=== PATIENT | male | born 1930 | race Caucasian/White ===

== ENCOUNTER 2018-08-07 09:53 | Inpatient (IN) | payer OTHER, MEDICARE ==
[~2018-08-07] VITALS: Ht 188 cm; Wt 108.9 kg
--- NOTE | ~2018-08-07 | HC ---
[facility] [place] [address] CONSULTATION Name: KYE NEELY Michael Room #: 217-P [facility] IN ..#: [id number] Admission: 08/07/18 ������������������ Attend Phys: Arnulfo Grijalva MD Discharge: ������������������ Date of : 32 Report #: [id number] THIS REPORT FOR: //name// CC: Arnulfo Grijalva DATE OF SERVICE: 08/08/2018 HISTORY OF PRESENT ILLNESS: The patient is an 88-year-old white male admitted with left lower extremity pain. He was noted to have left lower extremity cellulitis. Venous Doppler study was noted to be negative. He has been treated with IV antibiotics. Cardiology is involved as well with a history of atrial fibrillation. He is currently undergoing a cardiac echo. He has had some short episodes of paroxysmal rapid ventricular response, noted to be asymptomatic. He also has a resting tremor with question of Parkinson disease, but he has not actually have that diagnosis. We are seeing him in rehabilitation medicine consultation. PAST MEDICAL HISTORY: Melanoma of his back, which was previously excised. He did have some problems with necrotizing fasciitis noted at that time. History of cardiomyopathy, paroxysmal atrial fibrillation, chronic urinary retention, for which, he was intermittently cathing himself 3 times per day. He has history of dyslipidemia. MEDICATIONS: Please see the full medication listing as noted. List includes vitamins, herbals, and supplements as per report. ALLERGIES: No known drug allergies. FAMILY HISTORY: Nonapplicable. SOCIAL HISTORY: , lives with his house, no steps. He did not utilize gait aids, although on occasion, he had a cane or a walker he would utilize. 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 FAMILY HISTORY: Noncontributory. REVIEW OF SYSTEMS: Main complaint is the left lower extremity with the swelling and discomfort. REVIEW OF SYSTEMS: No complaints of chest pain, shortness of breath or abdominal discomfort. No other focal extremity pain complaints other than that left lower extremity. He does have a history of intermittent cathing as far as bladder. He denied any swallowing difficulties. PHYSICAL EXAMINATION: GENERAL: He is an 88-year-old white male in no obvious distress. [address] [address] CONSULTATION Name: KYE NEEYL Room #: 217-P [facility] IN [facility].#: [id number] Admission: 08/07/18 ������������������ Attend Phys: Arnulfo Grijalva MD Discharge: ������������������ Date of : 32 Report #: [id number] VITAL SIGNS: Last recorded temperature 98.3, pulse 73, respirations 16, blood pressure 103/68. NEUROLOGIC: The patient is alert. He is pleasant. Facies appeared to be symmetric. Follows basic commands without difficulty. He does have a resting tremor of both upper extremities, almost appears to be pill rolling. I could not detect any obvious cogwheeling, however, of his wrists or elbows. Strength of the upper body is probably a grade 3+ to 4-/5. DTRs are trace to 1. EXTREMITIES: Lower extremities: He has a left lower extremity significant erythema with some increased swelling. No calf swelling per se. He had that leg elevated on a pillow. He can wiggle the toes and can move it proximally. Right lower extremity functional range of motion strength is probably a grade 3+ to 4-/5. Tone appeared to be intact. He is currently undergoing a cardiac echocardiogram. ASSESSMENT: An 88-year-old white male with the following problem list: 1. Left lower extremity cellulitis. 2. Atrial fibrillation with rapid ventricular response. 3. Electrolyte abnormalities. 4. New stage 2 sacral pressure ulcer. 5. Resting tremor, question of Parkinson, although no actual diagnosis in this regard. 6. Idiopathic Cardiomyopathy. 7. Hyperlipidemia. 8. Hypertension. 9. History of nonsustained ventricular tachycardia. 10. Premorbid chronic urinary retention, for which, he intermittently catheterized himself 3 times a day. 11. History of melanoma of the back with prior exercising and history of some necrotizing fasciitis. PLAN: Therapy evaluations are underway. We will be glad to follow regarding his rehab therapy needs as he further medically stabilizes. ��������������������������������������������� ���������������������������������������� By: ��������������������������������������������� 1105 2231 Franklin Odom MD /nt
[2018-08-07 09:53] VITALS: BP 111/71
[~2018-08-07 09:53] MED LIST: ADULT LOW DOSE81 MG PO; AMIODARONE PO; CIPROFLOXACIN500 M1 PO; COUMADIN 5 MG TA5 M1 PO; KEFLEX500 MG PO; LIPITOR20 MG PO; PACERONE 200 M200 MG PO; TAMSULOSIN HCL0.4 M1 PO; TOPROL XL25 MG PO
[2018-08-07] MEDS ORDERED: XARELTO20 MG PO (10:07)
[2018-08-07 10:23] LABS: ABSOLUTE NEUTROPHILS 6.9 thou/uL (1.4-8.2); BASOPHILS 0.3 % (0.0-2.0); HEMATOCRIT 43.4 % (42.0-52.0); HEMOGLOBIN 14.4 gm/dL (14.0-18.0); LYMPHOCYTES 18.4 % (24.0-44.0); MCH 28.4 pg (26.0-34.0); MCHC 33.1 g/dL (28.0-37.0); MCV 85.8 fL (80.0-100.0); MONOCYTES 6.8 % (1.0-8.0); PLATELET COUNT 235 thou/uL (150-400); POLYS 73.5 % (36.0-66.0); RBC 5.06 mil/uL (4.50-6.00); RDW 16.1 % (10.5-14.5); WBC 9.3 thou/uL (4.0-11.0)
[2018-08-07 10:36] LABS: ALBUMIN 2.6 g/dL (3.4-5.0); ANION GAP 6 mmol/L (7-16); BUN 28 mg/dL (7-18); CALCIUM 9.2 mg/dL (8.5-10.1); CHLORIDE 105 mmol/L (98-107); CO2 32 mmol/L (21-32); CREATININE 1.8 mg/dL (0.7-1.3); GLUCOSE 99 mg/dL (74-106); SGOT 31 U/L (15-37); SGPT 30 U/L (30-65); SODIUM 143 mmol/L (136-145); TOTAL BILIRUBIN 0.9 mg/dL (<0.1-1.0); TOTAL PROTEIN 7.5 g/dL (6.4-8.2); TROPONIN-I <0.06 ng/mL (<0.06)
[2018-08-07 10:39] LABS: POTASSIUM 2.8 mmol/L (3.5-5.1)
[2018-08-07 11:52] VITALS: BP 108/71
[2018-08-07] MEDS ORDERED: TORSEMIDE20 MG PO (12:24)
[2018-08-07 12:45] VITALS: BP 92/61
--- NOTE | 2018-08-07 12:46 | NUR ---
ATTEMPTED TO CALL REPORT TO DEN IN CCU; REQUESTS TO CALL ME BACK IN 5 MIN; SECTION 8 PROPERTY MANAGER, CHRIST PAEZ, AWARE
[2018-08-07 13:55] VITALS: BP 106/68
--- NOTE | 2018-08-07 15:37 | NUR ---
PT ARRIVED TO UNIT AT APPROX 1340 WITH BELONGINGS BY ER STAFF ACCPANIED BY FAMILY. PT ALERT AND ORIENTED, C/O PAIN 2/10 IN LLE, VSS, O2 SATS WNL ON ROOM AIR, NO S/SX OF CARDIAC OR RESP DISTRESS. DENIES CHEST PAIN. PT AFIB ON MONITOR, HR ELEVATED LOW 90S-LOWER 100S PT SEEN BY DR. MARCIAL, NO NEW ORDERS. WOUND ON PT COCCYX ASSESSED, PICTURES TAKEN. TELE PUT ON, TELE STRIP PRINTED AND DOCUMENTED. WILL WAIT FOR ORDERS. WILL CONTINUE TO MONITOR AND FOLLOW POC.
--- NOTE | 2018-08-07 19:31 | NUR ---
PT CONTINUES TO BE ALERT AND ORIENTED, PT SEEN BY PHYSICIAN, CONSULTS CALLED, SEEN BY CARDIOLOGY. VSS, DENIES CONCERNS, NO S/SX OF CARDIAC OR RESP DISTRESS NOTED. O2 SATS WNL ON ROOM AIR. PT UP WITH WALKER X1 ASSIST. WILL CONTINUE TO MONITOR AND FOLLOW POC.
[2018-08-07 19:49] VITALS: BP 113/67
--- NOTE | 2018-08-08 02:53 | NUR ---
TOOK OVER PT CARE AROUND 2129. A&OX4, DENIES ANY PAIN OR CONCERNS. MECH/SOFT NECT THICK LIQUIDS TOLERATED WELL. Q2 TURNS. POSADAS INSERT. PLAN FOR LABS THIS AM. WILL CONTINUE TO MONITORING ELECTROLYTES.
[2018-08-08 03:28] LABS: ABSOLUTE NEUTROPHILS 6.2 thou/uL (1.4-8.2); BASOPHILS 0.4 % (0.0-2.0); EOSINOPHILS 1.8 % (0.0-3.0); HEMATOCRIT 39.6 % (42.0-52.0); LYMPHOCYTES 17.8 % (24.0-44.0); MCH 28.4 pg (26.0-34.0); MCHC 32.9 g/dL (28.0-37.0); MCV 86.4 fL (80.0-100.0); MONOCYTES 6.5 % (1.0-8.0); PLATELET COUNT 230 thou/uL (150-400); POLYS 73.5 % (36.0-66.0); RBC 4.59 mil/uL (4.50-6.00); RDW 15.5 % (10.5-14.5); WBC 8.4 thou/uL (4.0-11.0)
[2018-08-08 03:31] LABS: CALCIUM 8.4 mg/dL (8.5-10.1); CREATININE 1.5 mg/dL (0.7-1.3)
[2018-08-08 03:34] LABS: PREALBUMIN 12.2 mg/dL (18.0-35.7)
[2018-08-08 04:20] VITALS: BP 102/54
--- NOTE | 2018-08-08 08:23 | EKG ---
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 : 1930 Requested By: Estela Ramos Order Number: [id number] MD: Ld Ozuna Measurements Intervals [place] Rate: 105 P: [place]: QRS: -37 QRSD: 105 T: 60 QT: 387 QTc: 512 Interpretive Statements Atrial fibrillation Frequent premature ventricular complexes Inferior infarct, old Anterior infarct, old Compared to ECG 03/04/2012 15:55:16 Ventricular ectopy has now present atrial fibrillation has replaced sinus rhythm Electronically Signed On 08-08-2018 8:23:10 CDT by Ld Ozuna [email or web address] ��������������������������������������������� <ELECTRONICALLY SIGNED> ���������������������������������������� By: Ld Ozuna MD, [facility] ��������������������������������������������� 08/08/18 0823 1004 1004 Ld Ozuna MD, [facility] /EPI
--- NOTE | 2018-08-08 08:58 | EKG ---
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 : 1930 Requested By: Estela Ramos Order Number: [id number] MD: Ld Ozuna Measurements Intervals [place] Rate: 143 P: [place]: QRS: -28 QRSD: 115 T: 31 QT: 371 QTc: 572 Interpretive Statements Atrial fibrillation with rapid V-rate Paired ventricular premature complexes Poor R wave progression Inferior infarct, old Poor R wave progression Compared to ECG 03/04/2012 15:55:16 Atrial flutter has replaced atrial fibrillation Electronically Signed On 08-08-2018 8:57:56 CDT by Ld Ozuna [email or web address] ��������������������������������������������� <ELECTRONICALLY SIGNED> ���������������������������������������� By: Ld Ozuna MD, [facility] ��������������������������������������������� 08/08/18 0857 1218 1218 Ld Ozuna MD, [facility] /EPI
[2018-08-08 09:15] VITALS: BP 103/68
--- NOTE | 2018-08-08 12:08 | 2DMMODE ---
[facility] [address] [place] [address] 2 D/M-MODE ECHOCARDIOGRAM Name: KYE NEELY Room #: 217-P [facility] IN [facility]#: [id number] ������������� Admission: 08/07/18 ������������� Attend Phys: Arnulfo Grijalva, Discharge: ��� ������������� ��� Date of : 34 Date of Service: 08/08/18 1208 �� Report #: [id number] �������� ��������������������������������������������[id number] THIS REPORT FOR: //name// APPROVED REPORT Study performed: 08/08/2018 10:33:15 EXAM: Comprehensive 2D, Doppler, and color-flow Echocardiogram Patient Location: Bedside Room #: 217 Status: routine BSA: 2.35 HR: 97 bpm BP: 102/54 mmHg Rhythm: Atrial Fibrillation Other Information Study Quality: Adequate Risk Factors: Cardiac Risk Factors: HTN, Hyperlipidemia Indications CAD Cardiomyopathy 2D Dimensions IVSd: 11.87 (7-11mm) LVOT Diam: 20.00 (18-24mm) LVDd: 50.30 mm PWd: 11.57 (7-11mm) Ascending Ao: 34.33 (22-36mm) LVDs: 40.32 (25-40mm) Aortic Root: 33.23 mm LV Single Plane 4CH: 40.30 % LV Single Plane 2CH: 43.48 % Biplane EF: 42.9 % Volumes Left Atrial Volume (Systole) Single Plane 4CH: 101.21 mL Single Plane 2CH: 90.74 mL LA ESV Index: 49.00 mL/m2 Aortic Valve AoV Peak Abel.: 1.13 m/s AO Peak Gr.: 6.09 mmHg LVOT Max P.09 mmHg [facility] [address] [place] [address] 2 D/M-MODE ECHOCARDIOGRAM Name: KYE NEELY Michael Room #: 217-P [facility] IN [facility]#: [id number] ������������� Admission: 08/07/18 ������������� Attend Phys: Arnulfo Grijalva, Discharge: ��� ������������� ��� Date of : 34 Date of Service: 08/08/18 1208 �� Report #: [id number] �������� ��������������������������������������������[id number] LVOT Max V: 0.88 m/s LETITIA Vmax: 2.39 cm2 Pulmonary Valve PV Peak Abel.: 0.99 m/s PV Peak Gr.: 3.89 mmHg AK End Vmax: 1.27 m/s Tricuspid Valve TR Peak Abel.: 2.46 m/s TR Peak Gr.: 24.16 mmHg Left Ventricle Left ventricle is borderline dilated. segmental abnormalities noted Borderline concentric left ventricular hypertrophy. Left ventricular systolic function is moderately decreased. LVEF is 40%. This study is not technically sufficient to allow evaluation of the LV diastolic function due to atrial fibrillation. Right Ventricle The right ventricle is normal size. The right ventricular systolic function is normal. Atria Left atrium is severely dilated. Right atrium is at the upper limits of normal. Aortic Valve The aortic valve is normal in structure. No aortic regurgitation is present. There is no aortic valvular stenosis. Mitral Valve The mitral valve is normal in structure. Mild mitral regurgitation. No evidence of mitral valve stenosis. Tricuspid Valve The tricuspid valve is normal in structure. Mild tricuspid regurgitation. Unable to assess PA pressure. Pulmonic Valve The pulmonary valve is normal in structure. Mild pulmonic regurgitation. Great Vessels The aortic root is normal in size. IVC is not well visualized. [facility] [address] [place] [address] 2 D/M-MODE ECHOCARDIOGRAM Name: CHINKYE Michael Room #: 217-P [facility] IN ..#: [id number] ������������� Admission: 08/07/18 ������������� Attend Phys: Arnulfo Grijalva, Discharge: ��� ������������� ��� Date of : 34 Date of Service: 08/08/18 1208 �� Report #: [id number] �������� ��������������������������������������������[id number] Pericardium There is no pericardial effusion. <Conclusion> Left ventricle is borderline dilated. Left ventricular systolic function is moderately decreased. LVEF is 40%. segmental abnormalities noted Left atrium is severely dilated. The aortic valve is normal in structure. The mitral valve is normal in structure. Mild mitral regurgitation. The tricuspid valve is normal in structure. Mild tricuspid regurgitation. Unable to assess PA pressure. The pulmonary valve is normal in structure. Mild pulmonic regurgitation. There is no pericardial effusion. ��������������������������������������������� <ELECTRONICALLY SIGNED> ���������������������������������������� By: Stevan Adame MD ��������������������������������������������� 08/08/188 07 Stevan Adame MD /INF
[2018-08-08 12:19] VITALS: BP 100/72
[2018-08-08 12:28] LABS: CALCIUM 8.6 mg/dL (8.5-10.1); CREATININE 1.4 mg/dL (0.7-1.3); POTASSIUM 3.5 mmol/L (3.5-5.1)
--- NOTE | 2018-08-08 13:02 | HC ---
[facility] [place] [address] CONSULTATION Name: KYE NEELY Room #: 217-P [facility] IN .R.#: [id number] Admission: 08/07/18 ������������������ Attend Phys: Arnulfo Grijalva MD Discharge: ������������������ Date of : 32 Report #: [id number] THIS REPORT FOR: //name// CC: Arnulfo Grijalva HISTORY OF PRESENT ILLNESS: This is a very pleasant gentleman who was admitted from the Emergency Room due to left lower extremity edema and redness compatible with cellulitis. The patient states that this has been present for several days and has been progressively worsening. He does not notice when he has palpitations. He does have a history of atrial fibrillation and states it had been controlled, although upon questioning, he did not identify episodes of his heart rate being fast while being monitored here. He denies any fever or chills. Denies any chest pain, pressure, tightness, heaviness. Denies any orthopnea or PND. He states the only complaint is over the last couple of days or so when he started having the redness become quite significant. PAST MEDICAL HISTORY: Significant for: 1. Prior Staph infections in the back. 2. Cardiomyopathy, although the specifics are not available to me. 3. Paroxysmal atrial fibrillation, anticoagulated. 4. Dyslipidemia. 5. Benign prostatic hypertrophy. ALLERGIES: No known drug allergies. MEDICATIONS: Toprol-XL 25 mg daily, Lipitor 10 mg daily, Xarelto 20 mg daily and torsemide 20 mg daily. SOCIAL HISTORY: The patient is a former smoker, does not consume alcohol or follow a particular exercise regimen or dietary restriction. Electrocardiogram demonstrates atrial fibrillation with a slightly increased ventricular response of 105 in the ER followed by AFib with a rapid ventricular response at 143. Nonspecific ST-T wave changes, which lasted under 5 minutes. LABORATORY DATA: Demonstrates a potassium of 2.8, which has been supplemented and H and H of 14.4 and 43.4 with a platelet count of 235,000. Radiologic demonstrates no deep venous thrombosis noted by ultrasound. REVIEW OF SYSTEMS: Except for symptoms previously mentioned and those commensurate with comorbid state, the 10-point review of systems is negative. PHYSICAL EXAMINATION: GENERAL: Shows well-developed white male, resting comfortably in no acute distress. VITAL SIGNS: Noted and reviewed in the chart. [address] [address] CONSULTATION Name: KYE NEELY Room #: 217-P [facility] IN M.R.#: [id number] Admission: 08/07/18 ������������������ Attend Phys: Arnulfo Grijalva MD Discharge: ������������������ Date of : 32 Report #: [id number] HEENT: Normocephalic, atraumatic. Pupils are equal, round, reactive to light and accommodation. Extraocular muscles are intact. Sclerae and conjunctivae are anicteric. NECK: JVD is normal. Carotid upstrokes are bilaterally symmetrical. No bruits are heard. No thyromegaly. No lymphadenopathy. LUNGS: Clear to auscultation. No wheezes, rhonchi or crackles. No CVA tenderness. CARDIAC: Demonstrates an irregularly irregular rhythm. Soft systolic murmur is noted. ABDOMEN: Soft, nontender, nondistended. Normal bowel sounds. EXTREMITIES: Demonstrates bilateral lower extremity edema, mild on the right, [id number] on the left with evidence of a cellulitis, but no lymphangitis. NEUROLOGIC: Cranial nerves 2-12 are grossly normal and symmetrical. PSYCHIATRIC: Alert, oriented with normal affect. SKIN: Warm and dry. IMPRESSION: 1. History of atrial fibrillation with short episodes of paroxysmal rapid ventricular response, which are asymptomatic. These are self-limiting and short-acting and may be secondary to the issues from the cellulitis. In view of this, I am going to observe for the moment and not initiate any medications because of the fact that the patient does have short episodes only. If it becomes more sustained, then at that point in time, we would need to proceed with more definitive control. We will continue the anticoagulation unless contraindications develop. 2. Lower extremity cellulitis, on antibiotics as per primary care. 3. Cardiomyopathy is compensated currently, but need to obtain all information. The Toprol-XL is underdosed for guideline directed medical therapy, but if his ejection fraction is normalized, then no need to make any changes. 4. Dyslipidemia. I did discuss with him [employer] [employer] step 1 diet recommendations for which he does voice understanding. ��������������������������������������������� <ELECTRONICALLY SIGNED> ���������������������������������������� By: Stevna Adame MD ��������������������������������������������� 08/08/18 1302 0008 0040 Stevan Adame MD /nt
[2018-08-08 16:11] VITALS: BP 100/62
--- NOTE | 2018-08-08 17:32 | NUR ---
WOUND CONSULT: PT. WAS SEEN TODAY BY DR. BREEN AND MYSELF. PT. HAS STAGE 2 PRESSURE ULCER TO HIS SACRUM AND CELLULTITIS TO HIS LEFT LOWER EXTREMITY. RECOMMENDATIONS: WOUND CARE TO SACRUM: GENTLY CLEANSE AREA WITH WOUND CLEANSER OR NORMAL SALINE, APPLY MOISTURE BARRIER CREAM, LEAVE OPEN TO AIR, COMPLETE CARES DAILY AND PRN. TURN Q2 HOURS KEEP PT. OFF WOUNDS MUCH POSSIBLE KEEP ON SLOAN MATRESS. PT. AND STAFF NURSE WERE INSTRUCTED ON PLAN OF CARE.
--- NOTE | 2018-08-08 18:08 | NUR ---
ASSUMED CARE OF PT AT 0645. WORKED WITH THERAPY. WOUND CARE CONSULT. FAILED BEDSIDE SWALLOW FOR THIN LIQUIDS. VIDEO SWALLOW ORDERED. FAMILY AT BEDSIDE, REQUESTED TO SEE WOUND PHOTO. PT WANTS TO KNOW HOW LONG TIL CELLULITIS IS HEALED. LITTLE PROGRESS TOWARD PLAN OF CARE.
[2018-08-08 19:42] VITALS: BP 118/70
[2018-08-08 23:09] LABS: GLYCOHEMOGLOBIN (HGB A1C) 5.4 % (4.8-5.6)
[2018-08-09 04:24] LABS: CALCIUM 8.5 mg/dL (8.5-10.1); CREATININE 1.4 mg/dL (0.7-1.3); MAGNESIUM 2.1 mg/dL (1.8-2.4); POTASSIUM 4.2 mmol/L (3.5-5.1)
--- NOTE | 2018-08-09 04:29 | NUR ---
ASSESSMENT DOCUMENTED.PT BEEN RESTING IN NO ACUTE DISTRESS.A/OX4. SPITTING UP OF CLEAR PHELGM.TURNED AND REPOSITIONED IN BED.BARRIER CREAM TO BUTTOCKS.POSADAS DD,BLOOD TINGED URINE.LR INFUSING,ABTS TX,TOLERATED.PT DENIES PAIN.LEFT LOWER LEG TENDER UPON TOUCH,ELEVATED W/PILLOW.REMAINS AFEBRILE.VSS.AFIB ON MONITOR.PT DENIES ANY NEEDS.PT PROGRESSING SLOWLY TOWARDS GOALS.
[2018-08-09 04:49] VITALS: BP 124/84
[2018-08-09 05:17] LABS: HEMATOCRIT 39.1 % (42.0-52.0); HEMOGLOBIN 12.8 gm/dL (14.0-18.0); MCH 28.3 pg (26.0-34.0); MCHC 32.8 g/dL (28.0-37.0); MCV 86.3 fL (80.0-100.0); RBC 4.53 mil/uL (4.50-6.00); RDW 15.8 % (10.5-14.5); WBC 8.7 thou/uL (4.0-11.0)
[2018-08-09 07:25] VITALS: BP 109/71
[2018-08-09 11:20] VITALS: BP 121/77
--- NOTE | 2018-08-09 12:13 | NUR ---
WOUND FOLLOW UP: PT. WAS SEEN TODAY BY DR. BREEN AND MYSELF. PT. WOUNDS ARE CLINICALLY BETTER TODAY THAN YESTERDAY. PT. REPORTS THAT HIS BOTTOM FEELS BETTER AND HE LIKES THE AIR PUMP. RECOMMENDATIONS: CONTINUE WITH CURRENT PLAN OF CARE. PT. AND STAFF NURSE WERE INSTRUCTED ON PLAN OF CARE.
--- NOTE | 2018-08-09 12:50 | NUR ---
met with patient who reports he resides at home with in independent home with all needs on one level. Patient has a cane at home but does want a walker at home. Discussed rehab and post acute care. Patient adament to return home. Discussed HH care and patient does not want HH. Reviewed HH role and patient cont to state he DOES NOT want hh at home only walker. [facility] to arrange walker for home.
--- NOTE | 2018-08-09 18:36 | NUR ---
ASSUMED CARE OF PT AT SHIFT CHANGE. ASSESSMENTS CHARTED. MEDS GIVEN PER JUL. PT ALERT AND ORIENTED, VSS, NO C/O PAIN, DENIES CHEST PAIN. NO S/SX OF CARDIAC OR RESP DISTRESS NOTED. O2 SATS WNL ON ROOM AIR. URINE IN POSADAS CATH BLOOD TINGED THIS AM, PHYSICIAN NOTIFIED, URINE NO LONGER APPEARS BLOOD TINGED AT THIS TIME. FAMILY VISITED WITH PT, SOCIAL WORK SPOKE WITH PT AND FAMILY, PLAN FOR PT IS FOR 5N IN AM. PT AND FAMILY AWARE AND UPDATED. WILL CONTINUE TO MONITOR AND FOLLOW POC.
[2018-08-09 20:01] VITALS: BP 101/71
--- NOTE | 2018-08-10 03:48 | NUR ---
ASSUMED PT CARE AT 1900. PT A/OX4, VITAL SIGNS STABLE, ASSESSMENT CHARTED. NO COMPLAINTS OF CHEST PAIN/PAIN. Q2HR TURNS. PT RESTED WELL THROUGH THE NIGHT. PROGRESSING TOWARD PLAN OF CARE. CONTINUE TO MONITOR.
[2018-08-10 03:50] VITALS: BP 97/64
[2018-08-10 04:17] LABS: CALCIUM 8.4 mg/dL (8.5-10.1); CREATININE 1.5 mg/dL (0.7-1.3); POTASSIUM 4.3 mmol/L (3.5-5.1)
[2018-08-10 08:36] VITALS: BP 116/66
[2018-08-10] MEDS ORDERED: CARBIDOPA-LEVO1 EA11 PO (09:12)
[2018-08-10] MEDS ORDERED: AMMONIUM LACTA226 GM TOP (09:12)
[2018-08-10] MEDS ORDERED: ZOSYN 3.373.375 GM/1 IV (09:12)
--- NOTE | 2018-08-10 09:20 | HC ---
[facility] [place] [address] CONSULTATION Name: KYE NEELY Room #: 217-P [facility] ..#: [id number] Admission: 08/07/18 ������������������ Attend Phys: Arnulfo Grijalva MD Discharge: ������������������ Date of : 32 Report #: [id number] THIS REPORT FOR: //name// CC: Arnulfo Grijalva DATE OF SERVICE: 08/08/2018 CHIEF COMPLAINT: Sacral pressure ulceration and cellulitis of left lower extremity. HISTORY OF PRESENT ILLNESS: This is an 88-year-old male patient admitted to the hospital with left lower extremity pain. He presented to the Emergency Department noting increasing pain, redness and swelling to his left leg for the last 3 days. He also complains of some gluteal discomfort and I have been asked to see him with regard to wound care. PAST MEDICAL HISTORY: Previous melanoma on his back, which was surgically excised. He apparently developed postoperative infection and necrotizing fasciitis, has a history of cardiomyopathy, paroxysmal atrial fibrillation. He has hyperlipidemia, benign prostatic hypertrophy. He does self-catheterization daily. ALLERGIES: None. MEDICATIONS: Include metoprolol, rivaroxaban, torsemide, atorvastatin. FAMILY HISTORY: Noncontributory. SOCIAL HISTORY: The patient is and lives at home with his . He has 3 sons. He is a nonsmoker and does not abuse alcohol. 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 REVIEW OF SYSTEMS: CONSTITUTIONAL: The patient denies fever, chills, or weight loss. NEUROLOGICAL: The patient denies focal weakness, numbness or swelling. EYES: The patient denies visual changes, redness or drainage. ENT: The patient denies earache, nasal drainage or sore throat. CARDIOVASCULAR: The patient denies chest pain, palpitations, or diaphoresis. PULMONARY: The patient denies cough or shortness of breath. GASTROINTESTINAL: The patient denies nausea, vomiting, or abdominal pain. ORTHOPEDIC: The patient does complain of pain in his gluteal region as well as his left leg. Other systems in a 14-point review of systems are negative. PHYSICAL EXAMINATION: VITAL SIGNS: At this time include temperature 98.0, pulse 82, respiratory rate [facility] [address] [place] [address] CONSULTATION Name: KYE NEELY Michael Room #: 217-P [facility]#: [id number] Admission: 08/07/18 ������������������ Attend Phys: Arnulfo Grijalva MD Discharge: ������������������ Date of : 32 Report #: [id number] 18, blood pressure 118/70. GENERAL: This is a chronically ill-appearing male patient, who appears to be in mental stress. HEENT: Head normocephalic. Nose and throat are clear. NECK: Supple. LUNGS: Clear. ABDOMEN: Soft. SKIN: Examination of the sacral region demonstrates what appears to be stage 2 gluteal ulceration to the buttocks bilaterally. No evidence of cellulitis or infection. EXTREMITIES: Lower extremities demonstrate 3+ edema to the left leg, 2+ edema to the right leg. There is moderate erythema and warmth to the dorsal aspect of the left foot and left lower leg consistent with cellulitis. No open ulcerations are noted at this time. NEUROLOGIC: The patient is alert and oriented and appropriate. LABORATORY DATA: Includes sodium 145, potassium 3.5, CO2 32, BUN 22, creatinine 1.4, glucose 97, calcium is 8.6, albumin is 2.6. White blood cell count 8.7 with hemoglobin 12.8. CLINICAL IMPRESSION: 1. Cellulitis, left lower extremity. 2. Venous stasis dermatitis, bilateral lower extremities. 3. Stage 2 pressure ulcer to the buttocks bilaterally. 4. History of atrial fibrillation, on chronic anticoagulation. 5. Moderate protein-calorie malnutrition. RECOMMENDATIONS: At this point in time, we will recommend a zinc-based moist barrier cream to the sacral gluteal region to be applied daily and as needed. We recommend a low air loss mattress with q. 2 hour turning and repositioning. We will recommend AmLactin lotion to the legs bilaterally due to the cellulitis. We will recommend elevation for edema control rather than any compression at this time or he may benefit from compression in the future. The patient is agreeable to current plan of care. I do appreciate being asked to see him in consultation. ��������������������������������������������� <ELECTRONICALLY SIGNED> ���������������������������������������� By: Braydon Rivera MD ��������������������������������������������� 08/10/18 0920 [id number] Braydon Rivera MD /nt
[2018-08-10 09:53] VITALS: BP 116/66
--- NOTE | 2018-08-10 11:18 | NUR ---
ASSUMED CARE OF PT AT SHIFT CHANGE. ASSESSMENT CHARTED. MEDS GIVEN PER JUL. PT ALERT AND ORIENTED, VSS, NO C/O PAIN, DENIES CHEST PAIN. O2 SATS WNL ON ROOM AIR, NO S/SX OF CARDIAC OR RESP DISTRESS NOTED. FAMILY AT BEDSIDE. DC ORDERS FOR 5N ACKNOWLEDGED AND IMPLEMENTED. REPORT GIVEN TO TEJA ON 5N AT ARPPROX 1100. PT LEFT UNIT WITH ALL BELONGINGS BY TRANSPORT ACCOMANIED BY FAMILY.
--- NOTE | 2018-08-10 12:44 | NUR ---
patient accepted and dc to 5N today.
--- NOTE | 2018-08-10 20:37 | H ---
[facility] [place] [address] HISTORY AND PHYSICAL Name: KYE NEELY Room #: 217-P [facility] IN .R.#: [id number] Admission: 08/07/18 ������������������ Attend Phys: Arnulfo Grijalav MD Discharge: 08/10/18 ������������������ Date of : 32 Report #: [id number] THIS REPORT FOR: //name// CC: FERNANDEZ WALTERS MD DATE OF SERVICE: 08/07/2018 CHIEF COMPLAINT: Left lower extremity pain. 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 He has apparently been having generalized discomfort for at least the last 3 days and particularly in his left lower extremity. It became bad enough that he was no longer able to ambulate even using his walker. He was brought to the Emergency Room and had a workup that I discussed earlier with the nurse practitioner, Estela Ramos and I agree that the patient needed to be admitted for further evaluation and treatment. PAST MEDICAL HISTORY: Is very extensive and includes a history of melanoma on his back, which was surgically excised. This was later complicated by development of an infection and necrotizing fasciitis. According to reports from the Emergency Room, the family felt that this may have been MRSA, although I do not have clear documentation of that. The patient also has a history of cardiomyopathy and has had paroxysmal atrial fibrillation for at least 20 years. He was shocked several times in the remote past, but not recently. He is anticoagulated. He does report having had pulse from time to time, but not frequently. He has hyperlipidemia, has a history of benign prostatic hypertrophy and a transurethral prostate resection in the past; however, he must have a significant amount of chronic urinary retention as he is still performing self-catheterization 3 times per day every day at home. ALLERGIES: He has no known drug allergies. MEDICATIONS ON ADMISSION: Include metoprolol succinate 25 mg by mouth daily, atorvastatin 10 mg p.o. daily, rivaroxaban 20 mg by mouth daily and torsemide 20 mg by mouth daily p.r.n. leg edema. FAMILY HISTORY: Not applicable. SOCIAL HISTORY: The patient is and lives at home with his and has 3 grown sons, one of them is present with him and with his . The patient is [address] [address] HISTORY AND PHYSICAL Name: KYE NEELY Michael Room #: 217-P [facility] IN [facility].#: [id number] Admission: 08/07/18 ������������������ Attend Phys: Arnulfo Grijalva MD Discharge: 08/10/18 ������������������ Date of : 32 Report #: [id number] a nonsmoker and does not abuse alcohol. 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 REVIEW OF SYSTEMS: No headaches or chest pain or shortness of breath more than his normal. No abdominal pain. The patient does have a sore on his backside that has only appeared in the last few days according to my conversation with his son, Fernandez. The patient is having pain in the affected lower extremity, but otherwise tells me he is "fine." PHYSICAL EXAMINATION: VITAL SIGNS: In the Emergency Room showed respirations of 22 per minute on room air with a pulse of 107 apically, temperature of 36.7 degrees centigrade, blood pressure of 111/71 and pulse oximetry of 95% on room air. His self-reported weight at the time of admission was 240 pounds. GENERAL: The patient is a very kindly elderly male who does not appear to be in distress at the time of exam. HEENT: The extraocular muscles are intact. The oropharynx is slightly dry and pink, but without lesions or exudates. NECK: Without adenopathy or thyromegaly or mass or significant bruit, tenting is noted. LUNGS: Fairly clear bilaterally. CARDIOVASCULAR: Reveals a distant and irregularly irregular rhythm in the 90s as far as heart rate and this rate is approximately equal to the rate detected with a radial pulse. ABDOMEN: Soft. Bowel sounds are present. It is benign. EXTREMITIES: Bilateral lower extremities were examined and shows 4+ pitting edema of the left lower extremity extending from the thigh down. There is significant diffuse bright redness with markedly increased heat below the knee and involving the foot, but the redness actually extends along both sides of his thigh going up towards the groin and towards the hip. The entire left lower extremity is significantly tender to light touch. The right lower extremity shows only trace edema if any at all. Peripheral pulses are fairly easily palpated in both lower extremities, more easily, however, on the right side. NEUROLOGIC: The patient's mental status, is alert, fully oriented, has no hallucinations or delusions and has a slightly blunted affect, but a good sense of humor nonetheless. His cranial nerves appear to be intact. His cranial cerebellar exam was not assessed due to the problems with his left lower extremity. The strength in both upper extremities is very good and reasonably good in the right lower extremity. The left lower extremity caused him too much pain to be moving around much. When asked to raise himself for chest auscultation posteriorly, the patient was able to do it under his own power. The patient has a very notable tremor in both upper extremities. In fact, there almost appears to be a pill-rolling tremor in his hands. He does not have cogwheel rigidity, however, in his upper extremities. His facies suggests parkinsonism. 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 The superior gluteal cleft sacral area shows a large stage 2 decubitus ulcer without evidence of infection. ASSESSMENT AND PLAN: 1. Left lower extremity cellulitis -- the patient has diffusely xerotic skin of both lower extremities and I explained to him that it would be very important in the future to use creams or ointments at least daily, if not twice daily to help maintain the integrity of his skin and prevent the breakdown that might cause breaching of his skin defenses by infection. He told me that his is always after him to use the Oil of Olay product as he seems to be undergoing a change of mind about using it with this hospitalization. I will start him on intravenous vancomycin and Zosyn. The possible past history of methicillin-resistant Staphylococcus aureus is worrisome. I will do MRSA nasal swab today and blood cultures have been obtained through the Emergency Room. The pharmacist has already evaluated the patient for appropriate vancomycin dosing and has a calculated creatinine clearance of about 38 mL per minute. 2. Paroxysmal atrial fibrillation, chronic. I have requested a cardiology consult, it is not urgent. Aggressive rate lowering with intravenous Cardizem is relatively contraindicated with the patient's diminished blood pressure; however, if the rate accelerates and remains high for protracted period, ischemia due to hypotension would be worrisome and I would start him on a drip at that point. We will continue his metoprolol 25 mg daily and consider even to increase dose if able. I suspect some of his hypotension while affected by his fluid status and infection may be also related to his decreased cardiac output when the apical rate rises above 180 or so beats a minute. 3. Left lower extremity edema and gait disturbance -- this is likely made worse by the problem listed above, but I will ask physical therapy to work with him. He has already had venous Doppler of his lower extremity to prove that there is no evidence of deep venous thrombosis and it was negative. Given the patient's multiple medical problems and the fact that he still lives at home with his , I have asked for physical and occupational therapy to get involved with his care as well as requesting the data sme see him for evaluation for inpatient rehabilitation stay. Other problems will be outlined below. 4. Sacral decubitus ulcer -- per my conversation with the patient's son, this is a new development. I have asked that the wound specialists be on-board helping the patient with managing this and asked that the nurses turn the patient q. 2 hours to help keep the pressure off of that spot so that it will heal. Most likely, if the patient is able to regain his ambulation status simply staying off of that area of his anatomy will help greatly with the healing. 5. Marked tremor with general debility and diminished affect -- the patient does not strike me as being depressed and is highly intelligent. I am concerned that his tremor may have a Parkinson's disease or parkinsonism associated with it, although the patient assures me that this is not the case. He does not currently take any medication for his tremor and I will defer on further workup [facility] [address] [place] [address] HISTORY AND PHYSICAL Name: KYE NEELY Room #: 217-P [facility]#: [id number] Admission: 08/07/18 ������������������ Attend Phys: Arnulfo Grijalva MD Discharge: 08/10/18 ������������������ Date of : 32 Report #: [id number] and management to Dr. Grijalva who has known him a very long time. 6. Dysphagia -- I did find mention of a swallow study in old records, but could not find the actual results. The patient reports that he did have problems with swallowing several years ago and by his own choice, did not participate in the followup visits with speech therapy. I mention this because the patient's son, toward the end of our visit, mentioned that there had been several times when he has seen the patient suddenly begin coughing paroxysmally and without warning and producing a large amount of whitish mucus. Upon further questioning of the patient, he admitted to this problem and also admitted that it often was the result of ingestion of foods or liquids. We will adjust diet for now and ask speech therapy to further evaluate this problem, but I do not believe it is necessarily related to his cellulitis. 7. Hyperlipidemia. He will continue current medication. 8. Chronic urinary retention with a history of benign prostatic hypertrophy and is status post transurethral prostate resection. Since the patient is self-catheterizing at home and since he is not able to ambulate right now, I ordered a Mena catheter to be placed and to be removed at the discretion of the attending physician and the patient. 9. History of melanoma on his back without recurrence. 10. Creatinine of 1.8 with hypokalemia of 2.8 -- I have started the patient on potassium supplements 20 mEq 3 times daily. I suspect that the elevated creatinine has probably been worsened by decreased cardiac output acutely and some dehydration due to the infection and fever. I have ordered a stat magnesium level to be assessed and we will repeat chemistry in the morning. I have requested consultations with Dr. Mitchell from cardiology or one of his partners, Dr. Odom from rehab Medicine, Dr. Walters from wound management as well as physical, occupational and speech therapies. ��������������������������������������������� <ELECTRONICALLY SIGNED> ���������������������������������������� By: Raza Muller MD ��������������������������������������������� 08/10/182036 10 37 Raza Muller MD /nt
== END 2018-08-10 11:21 | DRG 602 ==
LOC: ER 09:53 → 2N 11:44 → EROBS 11:44 → 2N 13:23 → ENTRNSPT 08-10 11:04 → EDTRNSPTSTS 08-10 11:07 → 2N 08-10 11:21
PROVIDERS: Internal Medicine; Nurse Practitioner Adult Health; Nurse Practitioner Family; ADMIT Internal Medicine
DX: L03.116 Cellulitis of left lower limb (principal); E43 Unspecified severe protein-calorie malnutrition; I42.8 Other cardiomyopathies; I47.2 Ventricular tachycardia; E78.00 Pure hypercholesterolemia, unspecified; N40.0 Benign prostatic hyperplasia without lower urinary tract symptoms; I48.0 Paroxysmal atrial fibrillation; E87.6 Hypokalemia; E78.5 Hyperlipidemia, unspecified; L89.152 Pressure ulcer of sacral region, stage 2; I87.2 Venous insufficiency (chronic) (peripheral); L89.322 Pressure ulcer of left buttock, stage 2; L89.312 Pressure ulcer of right buttock, stage 2; R13.10 Dysphagia, unspecified; R33.9 Retention of urine, unspecified; E83.42 Hypomagnesemia; I65.29 Occlusion and stenosis of unspecified carotid artery; I12.9 Hypertensive chronic kidney disease with stage 1 through stage 4 chronic kidney disease, or unspecified chronic kidney disease; R31.9 Hematuria, unspecified; I25.10 Atherosclerotic heart disease of native coronary artery without angina pectoris; N18.3 Chronic kidney disease, stage 3 (moderate); G20 Parkinson's disease; Z87.891 Personal history of nicotine dependence; Z79.01 Long term (current) use of anticoagulants; Z68.30 Body mass index [BMI] 30.0-30.9, adult; Z82.49 Family history of ischemic heart disease and other diseases of the circulatory system; Z79.899 Other long term (current) drug therapy
CPT/HCPCS: 10081; 10194

== ENCOUNTER 2018-08-10 08:48 | Inpatient (IN) | payer OTHER, MEDICARE ==
[~2018-08-10] VITALS: Ht 188 cm; Wt 113.4 kg
--- NOTE | ~2018-08-10 | H ---
[facility] [place] [address] HISTORY AND PHYSICAL Name: KYE NEELY Room #: 509-P ADM IN M.R.#: [id number] Admission: 08/10/18 ������������������ Attend Phys: Franklin Odom MD Discharge: ������������������ Date of : 32 Report #: [id number] THIS REPORT FOR: //name// CC: Franklin Grijalva DATE OF SERVICE: 08/10/2018 HISTORY AND PHYSICAL/POSTADMISSION PHYSICIAN EVALUATION HISTORY OF PRESENT ILLNESS: The patient is an 88-year-old white male originally admitted to [facility] on 08/07/2018 with left lower extremity cellulitis and pain. Venous Doppler study was noted to be negative. He was treated with IV antibiotics. Cardiology was involved as well with a history of atrial fibrillation. He did have a short episode of paroxysmal ventricular rapid response noted to be asymptomatic. He also had a resting tremor. There was a question regarding Parkinson's disease. He was seen by Neurology, thought to have probable parkinsonism and was started on Sinemet. He has been noted to have a significant decline in his functional abilities and has been admitted for acute in-hospital inpatient rehabilitation. PAST MEDICAL HISTORY: Melanoma of his back, which was previously excised. He did have some problems with necrotizing fasciitis. History of cardiomyopathy, paroxysmal atrial fibrillation, chronic urinary retention and was noted to be cathing himself 3 times a day premorbidly. He currently has the indwelling Mena catheter. He has a history of dyslipidemia. MEDICATIONS: Please see the full medication listing. This includes vitamins, herbals, and supplements as per report. ALLERGIES: No known drug allergies. SOCIAL HISTORY: , lives with his , ant, no steps. He did not utilize gait aids, although on occasion, he had a cane or a walker that he would utilize. He is noted to have 2 grown sons involved. FAMILY HISTORY: Noncontributory. REVIEW OF SYSTEMS: He has the left lower extremity, which is his main complaint of pain. Denies any current chest pain, shortness of breath or abdominal discomfort. He does have a tremor that he has had. No headache. No fever or chills. No other focal weakness. Complains of overall generalized weakness and decreased stability. He did have the prior history of urinary retention as noted above. PHYSICAL EXAMINATION: [address] [address] HISTORY AND PHYSICAL Name: KYE NEELY Michael Room #: 509-[facility].#: [id number] Admission: 08/10/18 ������������������ Attend Phys: Franklin Odom MD Discharge: ������������������ Date of : 32 Report #: [id number] GENERAL: An 88-year-old white male in no obvious distress. VITAL SIGNS: Last recorded temperature 97.5, pulse 78, respirations 20, blood pressure 111/79. NEUROLOGIC: He is alert, follows basic 1 step commands. Facies are symmetric. HEENT: Appeared to be benign. CHEST: Sounded clear to auscultation. CARDIOVASCULAR: Regular rate and rhythm. ABDOMEN: Bowel sounds positive, nontender. GENITOURINARY AND RECTAL: He does have the indwelling Mena catheter. He has a resting tremor, which appears pill rolling. There is a hint of some clonus, wrists and elbows. EXTREMITIES: Functional range of motion of the upper extremities. Strength is grade 3+ to 4-/5. DTRs are trace to 1. Lower extremities: He does have decreased erythema from when I saw that left lower extremity before with some decreased swelling. No calf swelling per se. He can wiggle his toes and move the left lower extremity, probably at least a grade 3+. Right lower extremity is probably a grade 3+ to 4-. Tone appeared to be intact. Functionally, he has been min assist with basic functional mobility skills and ADLs. ASSESSMENT: An 88-year-old white male with the following problem list: 1. Parkinsonism. 2. Dysphagia, nectar thickened liquids. 3. Left lower extremity cellulitis. 4. Atrial fibrillation with rapid ventricular response. 5. Stage 2 pressure ulcer as noted from the acute hospital stay. Wound care is to continue following. 6. Idiopathic Cardiomyopathy. 7. Hyperlipidemia. 8. Hypertension history. 9. History of nonsustained ventricular tachycardia. 10. Premorbid chronic urinary retention for which he intermittently catheterized himself 3 times a day. 11. History of melanoma of the back with prior excision and history of some necrotizing fasciitis. PLAN: The patient is admitted for acute in-hospital inpatient rehabilitation. From a postadmission physician evaluation perspective, there are no relevant changes since the preadmission screening. Please see the above review of prior and current medical and functional conditions and comorbidities. Please see the patient's prior and current functional status. As far as risk of complications, he does have the multiple medical comorbidities. He will need to have the multiple home sales consultant physicians continue to follow. Initial plan of care involves the interdisciplinary acute inpatient rehabilitation program with the goal of maximizing the patient's functional independence, so that he can hopefully return back to his prior living situation. Prognosis is reasonably good with estimated length of stay probably at least 5-10 days pending progress. [address] [address] HISTORY AND PHYSICAL Name: KYE NEELY Room #: 509-P ADM IN ..#: [id number] Admission: 08/10/18 ������������������ Attend Phys: Franklin Odom MD Discharge: ������������������ Date of : 32 Report #: [id number] Potential barriers would include his multiple medical comorbidities and decreased functional status. The patient meets diagnostic criteria for an acute in-hospital inpatient rehabilitation stay. He does have the medical necessity criteria and we will continue to have the multiple home sales consultant physicians continue to follow. He does have the tolerance for therapies and has appropriate discharge goals back to the home setting. ��������������������������������������������� ���������������������������������������� By: ��������������������������������������������� 1551 1621 Franklin Odom MD /nt
--- NOTE | ~2018-08-10 | PLAN ---
[facility] [place] [address] REHAB UNIT PLAN OF CARE Name: KYE NEELY Room #: 509-P ADM IN M.R.#: [id number] Admission: 08/10/18 ������������������ Attend Phys: Franklin Odom MD Discharge: ������������������ Date of : 32 Report #: [id number] THIS REPORT FOR: //name// CC: Franklin Grijalva DATE OF SERVICE: 08/12/2018 PROGRESS NOTE/OVERALL PLAN OF CARE SUBJECTIVE: The patient is seen back today in followup. He is pushing hard to go home soon. No specific complaints. Vitals are stable. He still has the left lower extremity swelling and erythema, although it is slowly better. He has been working in therapies and is continuing with nectar thickened liquids, utilizing vital stimulation. Transfers are standby assist with gait 70 feet contact guard with a front-wheeled walker. In occupational therapy, lower body dressing is mod assist. In speech therapy, he is being monitored regarding his dysphagia as noted above and is on the nectar thickened liquids. He does have the resting tremor with some bradykinesia and we are working with him on functional mobility and ADL issues. ASSESSMENT: 1. Parkinsonism. 2. Dysphagia with nectar thickened liquids. 3. Left lower extremity cellulitis. 4. Atrial fibrillation with rapid ventricular response. 5. Stage 2 pressure ulcer with wound care involved. 6. Idiopathic cardiomyopathy. 7. Hyperlipidemia. 8. Hypertension. 9. History of nonsustained ventricular tachycardia. 10. Premorbid chronic urinary retention for which he intermittently catheterizes himself. PLAN: The overall plan of care is based on the preadmission screen, post-admission physician evaluation and information garnered from therapy assessments. 1. Estimated length of stay is currently for this coming Wednesday. I discussed with the therapy team and we are tentatively setting his discharge for Wednesday if medically cleared and family okay with it. At this point, he would need to go home at a nectar thickened liquid level and would have home health care nursing assist and continue vital stimulation in the home setting post-discharge. In essence, Dr. Grijalva and family need to clear him and we are tentatively planning for a Wednesday discharge. 2. Medical prognosis is reasonably good. 3. Anticipated interventions includes the interdisciplinary acute inpatient [address] [address] REHAB UNIT PLAN OF CARE Name: NEELYKYE L Room #: 509-P [facility] IN [facility]#: [id number] Admission: 08/10/18 ������������������ Attend Phys: Franklin Odom MD Discharge: ������������������ Date of : 32 Report #: [id number] rehabilitation program with PT, OT, speech, rehab nursing assisting regarding medication management, skin care prophylaxis, bowel and bladder issues and nursing education. 4. Anticipated functional outcomes would be for the patient to become modified independent with transfers, mobility, ADLs and improved swallowing, so that he can return back to the home setting. Goal would be for him to utilize a walker post-discharge. 5. Discharge destination would be back home with . 6. Expected therapy by discipline includes PT, OT and speech 1 hour per day each five days a week throughout the duration of the acute inpatient rehabilitation stay. ��������������������������������������������� ���������������������������������������� By: ��������������������������������������������� [id number] Franklin Odom MD /nt
[~2018-08-10 08:48] MED LIST changes: +TORSEMIDE20 MG PO; +XARELTO20 MG PO
[2018-08-10] MEDS ORDERED: ZOSYN 3.373.375 GM/1 IV (09:12)
[2018-08-10] MEDS ORDERED: AMMONIUM LACTA226 GM TOP (09:12)
[2018-08-10] MEDS ORDERED: CARBIDOPA-LEVO1 EA11 PO (09:12)
[2018-08-10 11:30] VITALS: BP 111/79
--- NOTE | 2018-08-10 16:15 | NUR ---
ASSUMED CARE AT APPROX 1130. PATIENT A/O X4. VSS. MEDICATION ORDERS CLARIFIED WITH PHYSICIAN. IV ANTIBIOTIC ADMINISTERED. SLOAN MATTRESS IN PLACE. STRAIGHT CATH'S ORDERED FOR PATIENT TO BEGIN STRAIGHT CATHING HIMSELF PRIOR TO D/C. CUAUHTEMOC TO JEAN CARLOS AT THIS TIME. LLE CELLULITIS NOTED, WOUND CARE ROUNDED ON PATIENT. BLE EDEMATOUS, ELEVATED ON PILLOW. ADMISSION ASSESSMENT COMPLETED. WOUND CARE ORDERS ENTERED PER ACUTE ORDERS, PER DR. KLEIN. REHAB ADMISSION ASSESSMENT COMPLETE. CONSULTS CALLED. CONSENTS SIGNED. MED ORDERS FAXED TO PHARMACY. FALL PRECAUTIONS IN PLACE. PATIENT RESTING IN RECLINER. PATIENT'S SON AT BEDSIDE. WILL CONTINUE TO MONITOR.
--- NOTE | 2018-08-11 03:28 | NUR ---
Assumed care of pt at 1915. Pt alert and oriented x4, calm and cooperative. Mena cath patent with clear yellow urine. Turned q 2 hrs. Incont soft unformed BM x2. Has appeared to be sleeping when checked on hourly rounds. Fall precautions in place.
[2018-08-11 04:40] LABS: HEMATOCRIT 38.3 % (42.0-52.0); HEMOGLOBIN 12.6 gm/dL (14.0-18.0); MCHC 32.7 g/dL (28.0-37.0); MCV 85.6 fL (80.0-100.0); RBC 4.48 mil/uL (4.50-6.00); RDW 15.7 % (10.5-14.5); WBC 8.8 thou/uL (4.0-11.0)
[2018-08-11 04:44] LABS: CALCIUM 8.7 mg/dL (8.5-10.1); CREATININE 1.4 mg/dL (0.7-1.3); POTASSIUM 4.3 mmol/L (3.5-5.1)
[2018-08-11 08:53] VITALS: BP 99/58
--- NOTE | 2018-08-11 09:47 | NUR ---
WOUND CONSULT: PT. WAS SEEN ON 08/10/[address] BREEN AND MYSELF. PT. IS WELL KNOWN TO THE WOUND CARE TEAM WE WERE FOLLOWING HIM ON ACUTE PRIOR TO TRANSFER TO REHAB. PT. HAS A STABLE STAGE 2 PRESSURE ULCER TO HIS SACRUM AND A RESOLVING CELLULITIS TO HIS LEFT LOWER EXTREMITY. RECOMMENDAITONS: WOUND CARE TO: GENTLY CLEANSE AREA WITH WOUND CLEANSER OR NORMAL SALINE, APPLY MOISTURE BARRIER CREAM, LEAVE OPEN TO AIR, COMPLETE CARES DAILY AND PRN. TURN Q2 HOURS KEEP PT. OFF WOUNDS MUCH POSSIBLE KEEP ON SLOAN MATRESS. PT. AND STAFF NURSE WERE INSTRUCTED ON PLAN OF CARE.
--- NOTE | 2018-08-11 12:30 | NUR ---
chart review, pt up in recliner chair with bilat lower ext elevated rt swelling. intro to cm, dcp, team meeting weekely,and home health. pt is a & o x 3 with forgetfulness. adamaris reported " oh wait, do not talk about me at the meeting, i plan on going home before meeting, going home wednesday or wednesday. live with maurice , no stairs. supportive family. independent prior to hospital. have cane, no past hh or rehab"/adamaris. education on waiting to cont to treat legs prior to dc and want pt to be back as close to base line prior to dc. will cont following as needed for dc needs.
--- NOTE | 2018-08-11 15:18 | NUR ---
ASSUMED CARE AT APPROX 0715. PATIENT A/O X4. C/O SORENESS TO LLE WHEN TOUCHED. CELLULITIS NOTED. 3+ BLE EDEMA. LEGS ELEVATED WHEN AT REST. BPL, TORSEMIDE HELD PER ORDERS, PROVIDER NOTIFIED. IV ANTIBIOTICS ADMINISTERED. OUTPATIENT PHARMACY UNABLE TO OBTAIN SELF STRAIGH CATH SUPPLIES, PATIENT'S FAMILY NOTIFIED, REPORTED THEY WOULD BRING IN SUPPLIES FROM HOME. CUAUHTEMOC TO DD AT THIS TIME. DR. MARIN PAGED AT 1200 TO NOTIFY, NO CALL BACK RECEIVED. PATIENT TOLERATED NTL, ENCOURAGED TO INCREASE ORAL INTAKE. FALL PRECAUTIONS IN PLACE. RESTING IN RECLINER. WILL CONTINUE TO MONITOR.
[2018-08-11 19:14] VITALS: BP 108/67
--- NOTE | 2018-08-12 00:27 | NUR ---
PT ALERT AND ORIENTED. AMB TO BR WITH WALKER AND ASSIST X 1. POSADAS PATENT DRAINING ADEQUATE AMTS CLEAR YELLOW URINE. PT TAKES MEDS WITH NECTAR THICK LIQUIDS WITHOUT DIFFICULTY. 4+ LE EDEMA. FEET ELEVATED ON PILLOWS. PT DENIES PAIN OR DISCOMFORT. BED ALARM ON FOR SAFETY. PT TURNED Q2H. PT APPEARS TO BE SLEEPING BETWEEN TURNS.
[2018-08-12 07:05] VITALS: BP 114/78
--- NOTE | 2018-08-12 12:45 | NUR ---
cm spoke with maurice and son nichole rt pt saying that he is going home on wed08/16/18, this was passed on from dr wu and therapist. physical therapy wanted cm to check with pt and family on thicken liquid, and if pt was driving. per " we need to encourage him that might take longer to heal, drives, and mom can not handle all the home care. if goes home to soon he end up right back in hospital or then might not be able to cont stay at home. we do not want to go to prison, want to be able to stay at home"/maurice and nichole.
--- NOTE | 2018-08-12 13:11 | NUR ---
PATIENT ALERT AND ORIENTED AND SITTING IN CHAIR WITH FEET ELEVATED IN THIS MORNING IF HE IS NOT WORKING WITH REHAB. SPEECH AT BEDSIDE THIS MORNING FOR TREATMENT. PATIENT IS REQUESTING TO GO HOME SOON POSSIBLE. HE SAYS HE HAS 2 SONS, ONE OF WHICH IS TURNING 60, WHO CAN TAKE HIM TO DOCTORS APPOINTMENTS.
--- NOTE | 2018-08-12 13:33 | NUR ---
WOUND FOLLOW UP: PT. WAS SEEN TODAY BY DR. BREEN AND MYSELF. PT. SACRUM IS PROGRESSING WELL TOWARDS HEALING AND IS ALMOST RESOLVED. ANTIBOTIC CREAM WAS ADDED TO LEFT LEG TO AID IN HEALING. RECOMMENDATIONS: CONTINUE WITH CURRENT PLAN OF CARE. PT. AND STAFF NURSE WERE INSTRUCTED ON PLAN OF CARE.
--- NOTE | 2018-08-12 19:21 | NUR ---
ASSUMED CARE AT 1500, TRIAMCELONE CREAM APPLIED ON BILATERAL LOWER EXTERMITY. DENIES PAIN, RECEIVING IV ANTIBIOTICS. WILL CONTINUE TO ASSESS AND ASSIST WITH ADLs NEEDED.
[2018-08-12 19:52] VITALS: BP 99/73
[2018-08-13 04:25] LABS: HEMATOCRIT 39.8 % (42.0-52.0); MCH 28.1 pg (26.0-34.0); MCHC 32.7 g/dL (28.0-37.0); RBC 4.63 mil/uL (4.50-6.00); RDW 15.8 % (10.5-14.5); WBC 6.1 thou/uL (4.0-11.0)
--- NOTE | 2018-08-13 04:29 | NUR ---
ASSUMED CARE OF PT AT 1915. PT ALRT AND ORIENTED X4. AMBULATES TO BATHROOM WITH STANDBY ASSIST USING GAIT BELT AND WALKER. DENIES PAIN, NAUSEA OR DPSNEA. REPOSITIONED Q 2 HRS. POSADAS PATENT WITH LARGE AMOUNTS OF CLEAR LIGHT YELLOW URINE AFTER LASIX IV GIVEN. HAS APPEARED TO BE SLEEPING WHEN CHECKED ON HOURLY ROUNDS. BED ALARM ON.
[2018-08-13 04:35] LABS: CALCIUM 8.6 mg/dL (8.5-10.1); CREATININE 1.6 mg/dL (0.7-1.3); POTASSIUM 3.5 mmol/L (3.5-5.1)
[2018-08-13 07:30] VITALS: BP 106/72
--- NOTE | 2018-08-13 11:58 | NUR ---
ASSUMED CARE AT APPROX 0715. PATIENT A/O X4. ABLE TO VOICE HIS NEEDS WHEN ASK. REPORTS DIDN'T SLEEP WELL LAST NIGHT. WILL ASK DR. MARIN FOR MELATONIN. DENIES PAIN, SOB, N/V CELLULITIS NOTED. 3+ BLE EDEMA ON LEFT LEG, 2+ EDEMA ON RIGHT LEG. LEGS ELEVATED WHEN AT REST. AMMONIUM LATATE LOTION APPLIED TO LEF BLE ORDERED. SACRUM SORE APPLIED ZGUARD, WAFFLE CRUSHION USE AND TURN Q 2HRS. PROVIDER NOTIFIED. ZOSYN IV ANTIBIOTICS ADMINISTERED, NO ADVERSE REACTION NOTED EXCEPT LOOSE STOOL. POSADAS TO DD AT THIS TIME WITH CLEAR LIGHT YELLOW URINE. PT WANTS POSADAS LONG HE IS STILL ON DIURETIC. ENCOURAGED TO INCREASE ORAL INTAKE. FALL PRECAUTIONS IN PLACE. RESTING IN RECLINER. WILL CONTINUE TO MONITOR.
[2018-08-13 21:37] VITALS: BP 123/72
--- NOTE | 2018-08-14 02:18 | NUR ---
assumed care at approx 1900 evening 08/13. pt sitting up in recliner at change of shift visiting with family at bedside. pt alert and oriented x4 appropriate and cooperative. cream applied to left lower leg. pt in bed now appears to be sleeping soundly with hourly rounding checks. bed alarm on and call light in reach. will continue to monitor.
--- NOTE | 2018-08-14 17:35 | NUR ---
ASSUMED CARE OF PATIENT AT APPROX 0715. PATIENT A/O X4. DENIES PAIN. BLE EDEMA. LEGS ELEVATED WHEN AT REST. TOPICAL MEDICATIONS APPLIED. PATIENT'S PCP ROUNDED, ORDERS RECEIVED FOR DIURETICS. PATIENT UP X1 ASSIST, GB AND WALKER. TOLERATED WALK WITH NURSING, OUT TO DINING TABLES FOR 2/3 MEALS THIS DATE. IV ANTIBIOTICS ADMINISTERED. BP LOW, PROVIDER NOTIFIED, NO NEW ORDERS REGARDING BP MEDS RECEIVED. FALL PRECAUTIONS IN PLACE. PATIENT'S FAMILY AT BEDSIDE. PATIENT CALLS APPROPRIATELY FOR ASSISTANCE. WILL CONTINUE TO MONITOR.
[2018-08-14 19:28] VITALS: BP 96/69
[2018-08-15 04:29] LABS: CALCIUM 8.5 mg/dL (8.5-10.1); CREATININE 1.7 mg/dL (0.7-1.3); MAGNESIUM 2.1 mg/dL (1.8-2.4); POTASSIUM 3.5 mmol/L (3.5-5.1)
--- NOTE | 2018-08-15 04:30 | NUR ---
PT LYING IN BED. DENIES PAIN. RESTING COMFORTABLY. NO NEEDS VOICED. CALL LIGHT WITHIN REACH. WILL CONTINUE TO PROVIDE FREQUENT OBSERVATION.
[2018-08-15 05:15] LABS: HEMATOCRIT 37.9 % (42.0-52.0); HEMOGLOBIN 12.5 gm/dL (14.0-18.0); MCH 28.1 pg (26.0-34.0); MCHC 32.9 g/dL (28.0-37.0); MCV 85.4 fL (80.0-100.0); RBC 4.44 mil/uL (4.50-6.00); RDW 15.6 % (10.5-14.5); WBC 7.7 thou/uL (4.0-11.0)
[2018-08-15 07:20] VITALS: BP 123/84
--- NOTE | 2018-08-15 07:46 | NUR ---
ASSUME PT CARE ATE 0700. RECEIVED REPORT FROM NIGHT NURSE. POSADAS CATH INTACT HAD 1400CC LIGHT YELLOW URINE THIS AM. CONTINUE TO BE ON LASIX. DR. MARIN CALLED AND CHECK ON PT. DISCUSSED WITH DR. MARIN ABOUT PT'S ABNORNAL LABS, CREATINE 1.7. AND LOW B/P. PT DENIES PAIN. REPORT SLEPT GOOD. LEGS EDEMA +2, REDNESS STILL ON LEFT LEG LITTLE BETTER. ENCOURAGED TO ELEVATE LEGS AND CHANGE POSISTION Q2HR. WILL CONTINUE TO MONITOR.
--- NOTE | 2018-08-15 16:32 | NUR ---
WOUND FOLLOW UP: PT. WAS SEEN TODAY BY DR. BREEN AND MYSELF. PT. CELLULITIS HAS CLINICALLY IMPROVED OVER THE WEEKEND. PT. IS READY TO GO INTO COMPRESSION AT THIS TIME. RECOMMENDATIONS: CONTIUE WITH CURRENT PLAN OF CARE. PT. AND STAFF NURSE WERE INSTRUCTED ON PLAN OF CARE.
[2018-08-15 19:35] VITALS: BP 160/68
--- NOTE | 2018-08-16 04:14 | NUR ---
ASSUMED CARE FROM PREVIOUS SHIFT PT SITTING UP IN CHAIR MOST OF EVENING, BARRIER CREME APPLIED TO BUTTOCK, PO MEDICATION TAKEN AND DISCUSSED PLAN OF CARE PT AGREEABLE AND VERBALIZED UNDERTSANDING. PT RESTED WELL THROUGHUT HOURLY ROUNDS
[2018-08-16 05:57] LABS: CALCIUM 8.4 mg/dL (8.5-10.1); CREATININE 1.6 mg/dL (0.7-1.3); POTASSIUM 3.7 mmol/L (3.5-5.1)
[2018-08-16 08:00] VITALS: BP 113/64
--- NOTE | 2018-08-16 09:12 | HC ---
[facility] [place] [address] CONSULTATION Name: KYE NEELY Room #: 509-P [facility] IN M.R.#: [id number] Admission: 08/10/18 ������������������ Attend Phys: Franklin Odom MD Discharge: ������������������ Date of : 32 Report #: [id number] THIS REPORT FOR: //name// CC: Franklin Grijalva DATE OF SERVICE: 08/15/2018 INFECTIOUS DISEASE CONSULTATION: ATTENDING PHYSICIAN: Dr. Odom. CONSULTATION REQUESTED BY: Dr. Grijalva. REASON FOR CONSULTATION: Change from IV to oral antibiotic. 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 Cellulitis of left leg has improved. He is scheduled for discharge tomorrow, remains on Zosyn and request for transfer to oral antibiotic is made. At present, the patient voices no major complaints. Denies ever having had pain despite what I read on the patient's H and P on admission, but anyhow he appears to be improved. He continues to have swelling of lower extremities, likely on the basis of chronic kidney disease and congestive heart failure. DRUG ALLERGIES: None listed. MEDICATIONS: The patient is on furosemide 40 mg IV daily, melatonin 5 mg p.o. at bedtime, triamcinolone acetonide topical twice daily left leg, Zosyn 3.375 grams IV every 6 hours, carbidopa/levodopa 10-100 mg p.o. t.i.d., torsemide 20 mg p.o. daily, metoprolol 25 mg p.o. daily, atorvastatin calcium 10 mg daily, magnesium oxide 400 mg daily, KCl 20 mEq daily, ammonium lactate topically to leg b.i.d., rivaroxaban 20 mg daily. SOCIAL HISTORY: Clearly delineated in H and P, old records will not be repeated. FAMILY HISTORY: See H and P. REVIEW OF SYSTEMS: Some cough, no expectoration, swelling of legs per se, wondering if pressure dressings will apply, leg feels better to him though remains slightly erythematous. PHYSICAL EXAMINATION: GENERAL: This is an elderly overweight white man, not toxic looking. [facility] [address] [place] [address] CONSULTATION Name: KYE NEELY Room #: 509-P [facility] IN [facility]#: [id number] Admission: 08/10/18 ������������������ Attend Phys: Franklin Odom MD Discharge: ������������������ Date of : 32 Report #: [id number] VITAL SIGNS: Temperature 97.5, pulse 82, respirations 17, BP 123/84, occasionally the patient on the hypotensive side with blood pressure 97/64. HEENMT: Head normocephalic, atraumatic. Pupils reactive. History of surgery for glaucoma. Mouth: No thrush. NECK: Supple, no thyromegaly. LUNGS: Rhonchi, crackles, left lung base posteriorly. HEART: S1, S2, irregularly irregular. No gallop. ABDOMEN: Soft, no masses or megaly. GENITALIA: Revealed Mena catheter in place, which will be removed on discharge and patient self-catheterizes at home. EXTREMITIES: Reveal swelling of both lower extremities, more so on the left with some erythema of the leg compatible with stasis dermatitis, cellulitis and from what I read on progress notes, these appear to be improved. NEUROLOGIC: Grossly within normal limits. LABORATORY DATA: Sodium 142, potassium 3.5, CO2 is 29, BUN 15, creatinine 1.7. WBC has been normal since admission. Today's white blood cell count is 7700, hemoglobin 12.5 g/dL, platelets 218,000. MICROBIOLOGY DATA: Blood cultures were obtained on 08/07/2018 and they remained negative so far. RADIOLOGY EVALUATION: A chest x-ray revealed some lung hyperexpansion, persistent elevation of the left hemidiaphragm, cardiomegaly, no obvious acute pulmonary infiltrate and degenerative changes of the spine. ASSESSMENT: 1. Cellulitis, left lower extremity, improved. 2. Persistent stasis dermatitis secondary to swelling of the legs. 3. Atrial fibrillation -- cardiomyopathy -- idiopathic with congestive heart failure. 4. Coronary artery disease, asymptomatic. 5. Carotid artery stenosis, stable. 6. Hypertension. 7. Mild anemia. 8. Parkinson's disease. SUGGESTIONS: Obviously, the patient has improved from cellulitic changes. Consequently, recommend discontinuation of Zosyn and trial of Augmentin 500 mg b.i.d. for 5 more days. Pressure dressings may be of some help if this is feasible. Procedure to be done obviously with the help of visiting nurse or family member. [facility] [address] [place] [address] CONSULTATION Name: KYE NEELY Room #: 509-P ADM IN M.R.#: [id number] Admission: 08/10/18 ������������������ Attend Phys: Franklin Odom MD Discharge: ������������������ Date of : 32 Report #: [id number] Arnulfo Grijalva, thank you very much for requesting my opinion in the care of your patient. ��������������������������������������������� <ELECTRONICALLY SIGNED> ���������������������������������������� By: Ashok Gutierrez MD ��������������������������������������������� 08/16/18 0912 [id number] Ashok Gutierrez MD /nt
--- NOTE | 2018-08-16 12:29 | NUR ---
team meeting, recommendation: 21st home with health (pt, ot, st -vital stim and nursing), fww. pt will be changed off iv abt to po, then iv diuretic to po. dc abernathy cath and pt will need to resume his own straight cath here rt home and cont at home. will have st work with family for pt special diet, nectar thick liquids. will cont following as needed for dc needs.
--- NOTE | 2018-08-16 15:03 | NUR ---
ASSUMED CARE AT APPROX 0715. PATIENT A/O X4. ABLE TO VOICE HIS NEEDS WHEN ASKED. DENIES PAIN, SOB, N/V. CELLULITIS IS GETTING BETTER. 2+ BLE EDEMA ON LEFT LEG. OT GAVE SPONGE BATH ENCOURAGED LEGS ELEVATED WHEN AT REST. AMMONIUM LATATE LOTION APPLIED TO LEF BLE ORDERED. SACRUM SORE APPLIED ZGUARD, LOOKS BETTER WAFFLE CRUSHION USE AND TURN Q 2HRS. POSADAS TO DD AT THIS TIME WITH CLEAR LIGHT YELLOW URINE HAD 1100CC OUT SINCE THIS AM. LAST IV LASIX THIS AM. DR. KLEIN PUT OTHER TO REMOVE POSAADS CATH IN THE AM AND RN WILL SUPERVION WHILE PT PERFORM SELF STRAIGHT CATH. B/P IS ON LOW SIDE ENCOURAGED TO INCREASE ORAL INTAKE. OFFERED SUPPORTIVE CARE. PT HAS BEEN WALKING TO DINNING ROOM FOR MEALS. HAS FAIR APPETITE. FALL PRECAUTIONS IN PLACE. PT IS OK TO BE DISCHARGE ON WEDNESDAY. WILL CONTINUE TO MONITOR.
--- NOTE | 2018-08-16 16:43 | NUR ---
NOTIFIED LOBO IN ADM. OF REFERRAL AND SHE WILL REVIEW. PT. WILL NEED PT/OT/ST WITH VITAL STIM/RN. ANTICIPATE DC 08/18. DCP TO FOLLOW.
[2018-08-16 20:00] VITALS: BP 132/54
--- NOTE | 2018-08-17 02:23 | NUR ---
ASSUMED CARE OF PT AT 1915. PT ALERT AND ORIENTED X4. POSADAS PATENT WITH CLEAR RUTHANN URINE. PT DENIES PAIN, NAUSEA OR DYPSNEA. MELATONIN GIVEN EARLY AT PT'S REQUEST. PT NOW UP IN RECLINER, STATES HE IS "NOT SLEEPING". TITI WRAPS INTACT ON BILAT LOWER EXTREMITIES. CHECKED ON HOURLY ROUNDS. FALL PRECAUTIONS IN PLACE.
[2018-08-17 08:42] VITALS: BP 84/57
[2018-08-17 08:46] VITALS: BP 92/58
--- NOTE | 2018-08-17 09:52 | NUR ---
ASSUMED CARE AT 0700. PATIENT IS ALERT AND ORIENTED X4. PATIENT CABRERA'S, INSIDE SALES ARE EQUAL. PATIENT HAS TREMORS BILATERALLY. PATIENT LUNGS ARE CLEAR AND DEMINISHED. PATIENT REMAINS ON ABT FOR URI. PATIENT HAS GOOD COUGH REFLEX AND IS COUGHING UP THICK SECRETIONS. ABD IS SOFT WITH BSX4. PATIENT CUAUHTEMOC WAS D/C'D AT 0630 TODAY. PATIENT WILL CATH HIMSELF INTERMITTANTLY. PATIENT HAS BILATERAL LEG DRESSING R/T DX OF CELLULITIS. PATIENT IS UP IN CHAIR WITH HIS LEGS ELEVATED. FALL AND SAFETY PROTOCOLS IN PLACE. DENIES ANY PAIN AT THIS TIME. CONTINUES TO WORK TOWARDS D/C GOALS. WILL CONTINUE TO MONITER.
--- NOTE | 2018-08-17 17:30 | NUR ---
Patient participated in community reintegration on 08/17/18 with OT. Refer to documentation by OT.
[2018-08-17 20:48] VITALS: BP 146/62
--- NOTE | 2018-08-18 04:29 | NUR ---
ASSESSMENT: PT REMAIN ALERT AND ORIENT TIMES THREE. TREMORS NOTED YET ABLE TO STRAIGHT CATH SELF AND TAKE PO MEDICATIONS. UP TO BR WITH GB AND WALKER TIMES THREE. SMEARS FOR BM, AND STRAIGHT CATH SELF WITHOUT DIFFICULTY. VSS, AFEBRILE. TURNED Q 2 HOURS. IV SL PER LEFT AC. MEDS TAKEN WITH THICKENED LIQUID. NO ASPIRATION. SLOW PROGRESS, TOWARDS DC GOALS. WILL CONTINUE TO MONITOR.
[2018-08-18 07:36] VITALS: BP 96/60
--- NOTE | 2018-08-18 07:55 | NUR ---
ASSUMED CARE AT 0700. PATIENT IS ALERT AND ORIENTED X4. PATIENT CABRERA'S , INSTRUMENT REPAIRER ARE EQUAL, BUT PATIENT HAS TREMORS. LUNGS ARE CLEAR. ABD IS SOFT WITH BSX4. PATIENT HAD LARGE BM TODAY. PATIENT STRAIGHT CATHED HIMSELF IN BATHROOM X1. FALL AND SAFETY PROTOCOLS IN PLACE. DENIES ANY PAIN AT THIS TIME. CONTINUES TO PROGRESS TOWARDS D/C GOALS. PATIENT IS TO HAVE FAMILY TRAINING TODAY PRIOR TO D/C LATER TODAY. WILL CONTINUE TO MONITER.
--- NOTE | 2018-08-18 08:09 | NUR ---
PATIENT HAS S.L. IN HIS LEFT AC. PATIENT HAS BILATERAL TITI WRAPS TO HIS LOWER EXTREMITES FOR THE CELLULITIIS. PATIENT REMAINS ON ABT FOR THE CELLULITIS. PATIENT IS TOLERATING ABT WITHOUT SIDE EFFECTS. WILL CONTINUE TO MONITER.
[2018-08-18 12:42] VITALS: BP 96/60
[2018-08-18 12:59] VITALS: BP 96/60
[2018-08-18] MEDS ORDERED: CARBIDOPA-LEVO1 EA11 PO (14:23)
[2018-08-18] MEDS ORDERED: MELATONIN5 M1 PO (14:23)
[2018-08-18] MEDS ORDERED: K-DUR 20 MEQ T20 MEQ PO (14:23)
[2018-08-18] MEDS ORDERED: TORSEMIDE20 MG PO (14:23)
[2018-08-18] MEDS ORDERED: MAGNESIUM400 MG PO (14:23)
[2018-08-18] MEDS ORDERED: AUGMENTIN 500-1 EACH PO (14:23)
[2018-08-18] MEDS ORDERED: AMMONIUM LACTA226 GM TOP (14:23)
--- NOTE | 2018-08-18 14:45 | NUR ---
PATIENT AND GIVEN D/C INSTRUCTIONS. PATIENT VERBALIZED D/C INSTRUCTIONS. SON'S AT BEDSIDE. PT AND LEFT UNIT WITH ALL THEIR BELONGINGS AND D/C INSTRUCTIONS. PATIENT D/C SCRIPTS FAXED TO [facility] ON [address].
--- NOTE | 2018-08-18 15:28 | NUR ---
WOUND FOLLOW UP: PT. WAS SEEN TODAY BY DR. RBEEN AND MYSELF. PT. WOUNDS ARE RESOLVED AND DISCHARGE PLANNING WAS DISCUSSED. RECOMMENDATIONS: CONTINUE WITH CURRENT PLAN OF CARE. PT. AND STAFF NURSE WERE INSTRUCTED ON PLAN OF CARE.
--- NOTE | 2018-08-20 15:34 | HC ---
[facility] [place] [address] CONSULTATION Name: KYE NEELY Room #: 509-P [facility] IN M.R.#: [id number] Admission: 08/10/18 ������������������ Attend Phys: Franklin Odom MD Discharge: 08/18/18 ������������������ Date of : 32 Report #: [id number] THIS REPORT FOR: //name// CC: Franklin Grijalva DATE OF SERVICE: 08/13/2018 NEUROBEHAVIORAL STATUS EXAMINATION ATTENDING PHYSICIAN: Franklin Odom MD DRILL PRESSER: Fransico Evangelista, PhD CLINICAL PRESENTATION: The patient is an 88-year-old male admitted to [facility] for comprehensive inpatient rehabilitation program to improve functional mobility, activities of daily living and self-care and mental status secondary to 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 His assessment includes dysphagia, left lower extremity cellulitis, atrial fibrillation with rapid ventricular response, stage 2 pressure ulcer, idiopathic cardiomyopathy, hyperlipidemia, hypertension, history of nonsustained ventricular tachycardia, premorbid chronic urinary retention, history of melanoma of the back with prior excision and history of necrotizing fascitis. A complete description of his medical condition and history along with medications can be found in his medical record. Neuropsychological consultation was requested to provide assistance in the assessment of cognitive and emotional status and to provide recommendations and services. Prior to his most recent admission, the patient was living independently in his own home. He is , with 3 children. 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 He indicates having been independent with instrumental activities of daily living. Although the patient states that he should not be driving and rarely does get behind the wheel. He does drive to a mailbox. There is no prior history of treatment for depression or anxiety reported. There is also no reported history of alcohol/drug abuse. TECHNIQUES UTILIZED: Clinical interview, review of medical records, staff consultation and behavioral observation, mini mental status exam 2 standard version, verbal fluency assessment and abstract reasoning test. EXAMINATION FINDINGS: The patient was alert and cooperative with the assessment. He accurately described events surrounding his admission. There is no evidence of aphasia. His thoughts are logical and goal oriented. There is no evidence of thought disorder. There is no report of auditory or visual hallucinations. He describes his symptoms to include decreased appetite with weight loss and sleep disturbance. He does not report difficulty with memory or [facility] [address] [place] [address] CONSULTATION Name: KYE NEELY Room #: 509-P [facility] IN [facility].#: [id number] Admission: 08/10/18 ������������������ Attend Phys: Franklin Odom MD Discharge: 08/18/18 ������������������ Date of : 32 Report #: [id number] word finding. He denies anxiety or depression. However, he does indicate increased irritability. He would like to return home as soon as possible. Performance on the MMSE 2 brief version is within normal limits with a raw score of 16/16. The patient is somewhat hard of hearing. However, initial registration of material was 3/3, orientation to time and place were within normal limits and he was 3/3 for immediate recall of 3 items after a brief time delay and distraction. The patient was 5/5 for serial 7s. Performance on the MMSE 2 standard version was within normal limits with a raw score of 28/30. He has a severe upper extremity tremor and writing and constructive tasks were not administered. He was 5/5 for serial 7s. He could read and follow single command. Performance on a brief abstract reasoning was within normal limits with a raw score of 6/8. Borderline functioning was noted in letter fluency with a raw score of 12, T score of 32 and percentile rank of 4. Category fluency was within normal limits with a raw score of 39, T score of 59 and percentile rank of 82. Overall, total fluency was in the average range with a raw score of 51, T score of 44 and percentile rank of 27. The patient is alert and oriented. Deficits in letter fluency can suggest dysfunction in thought organization, planning and higher level problem solving. The patient does report uncertainty in regard to decision making about dental procedures. He is trying to decide which of several options would be the most effective in managing his dental care needs. 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 RECOMMENDATIONS: Assistance in planning, problem solving and higher level executive functioning. The patient will also benefit from a concrete explanation of the purpose of therapies and the value of continued inpatient treatment during his rehabilitation program. The patient reports frustration regarding need for treatment and a desire to return home as soon as possible. Thank you very much for allowing me to provide the consultation on this patient. ��������������������������������������������� <ELECTRONICALLY SIGNED> ���������������������������������������� By: Fransico Evangelista, PhD ��������������������������������������������� 08/20/18 1534 1539 [id number] Fransico Evangelista, PhD /nt
== END 2018-08-18 14:55 | disposition home health service (06) | DRG 56 ==
LOC: ENTRNSPT 08-18 14:44
PROVIDERS: Internal Medicine; ADMIT Physical Medicine & Rehabilitation
DX: G20 Parkinson's disease (principal); E43 Unspecified severe protein-calorie malnutrition; L03.116 Cellulitis of left lower limb; I47.2 Ventricular tachycardia; I42.8 Other cardiomyopathies; R13.10 Dysphagia, unspecified; G31.84 Mild cognitive impairment of uncertain or unknown etiology; I48.0 Paroxysmal atrial fibrillation; E78.5 Hyperlipidemia, unspecified; E87.6 Hypokalemia; E83.42 Hypomagnesemia; I25.10 Atherosclerotic heart disease of native coronary artery without angina pectoris; N18.3 Chronic kidney disease, stage 3 (moderate); I12.9 Hypertensive chronic kidney disease with stage 1 through stage 4 chronic kidney disease, or unspecified chronic kidney disease; I65.29 Occlusion and stenosis of unspecified carotid artery; I95.9 Hypotension, unspecified; L89.152 Pressure ulcer of sacral region, stage 2; L89.322 Pressure ulcer of left buttock, stage 2; L89.312 Pressure ulcer of right buttock, stage 2; R33.8 Other retention of urine; I87.2 Venous insufficiency (chronic) (peripheral); D64.9 Anemia, unspecified; Z68.32 Body mass index [BMI] 32.0-32.9, adult; Z85.820 Personal history of malignant melanoma of skin; Z79.899 Other long term (current) drug therapy
CPT/HCPCS: 10112

== ENCOUNTER 2018-09-05 12:31 | Inpatient (IN) | payer OTHER, MEDICARE ==
[~2018-09-05] VITALS: Ht 188 cm; Wt 112.3 kg
[~2018-09-05 12:31] MED LIST changes: +AMMONIUM LACTA226 GM TOP; +AUGMENTIN 500-1 EACH PO; +CARBIDOPA-LEVO1 EA11 PO; +K-DUR 20 MEQ T20 MEQ PO; +MAGNESIUM400 MG PO; +MELATONIN5 M1 PO; +ZOSYN 3.373.375 GM/1 IV
[2018-09-05 12:37] VITALS: BP 116/72
[2018-09-05 12:55] LABS: ABSOLUTE NEUTROPHILS 9.9 thou/uL (1.4-8.2); BASOPHILS 0.4 % (0.0-2.0); EOSINOPHILS 0.2 % (0.0-3.0); HEMOGLOBIN 14.7 gm/dL (14.0-18.0); LYMPHOCYTES 10.2 % (24.0-44.0); MCH 28.2 pg (26.0-34.0); MCHC 32.6 g/dL (28.0-37.0); MCV 86.5 fL (80.0-100.0); MONOCYTES 9.2 % (1.0-8.0); PLATELET COUNT 149 thou/uL (150-400); RDW 16.2 % (10.5-14.5); WBC 12.4 thou/uL (4.0-11.0)
[2018-09-05 13:01] LABS: ANION GAP 4 mmol/L (7-16); BUN 33 mg/dL (7-18); CALCIUM 9.7 mg/dL (8.5-10.1); CHLORIDE 110 mmol/L (98-107); CO2 35 mmol/L (21-32); CREATININE 1.9 mg/dL (0.7-1.3); GLUCOSE 124 mg/dL (74-106); POTASSIUM 3.4 mmol/L (3.5-5.1); SODIUM 149 mmol/L (136-145)
[2018-09-05 13:09] LABS: ALBUMIN 2.9 g/dL (3.4-5.0); LIPASE 49 U/L (73-393); MAGNESIUM 2.3 mg/dL (1.8-2.4); SGOT 13 U/L (15-37); SGPT 7 U/L (30-65); TOTAL BILIRUBIN 1.9 mg/dL (<0.1-1.0); TOTAL PROTEIN 8.1 g/dL (6.4-8.2); TROPONIN-I <0.06 ng/mL (<0.06)
[2018-09-05 13:49] LABS: URINE BILIRUBIN NEGATIVE (Negative); URINE BLOOD 1+ (Negative); URINE CLARITY CLEAR; URINE COLOR YELLOW; URINE GLUCOSE-RANDOM* NEGATIVE (Negative); URINE KETONES TRACE (Negative); URINE LEUKOCYTES-REFLEX 2+ (Negative); URINE NITRITE-REFLEX POSITIVE (Negative); URINE PROTEIN (DIPSTICK) 1+ (Negative)
[2018-09-05 13:56] LABS: CASTS None Seen /LPF (None Seen); MUCUS 0-3 Light strn/LPF (None Seen); SQUAMOUS 4-10 Moderate /LPF (0-3)
[2018-09-05 13:57] LABS: BACTERIA-REFLEX >30 Many /HPF (None Seen); CRYSTALS None Seen /LPF (None Seen); URINE RBC 0-2 Rare /HPF (0-2); URINE WBC-REFLEX >25 Many /HPF (0-5)
[2018-09-05] MEDS ORDERED: LIPITOR10 MG PO (15:08)
[2018-09-05] MEDS ORDERED: MELATONIN5 M1 PO (15:10)
[2018-09-05] MEDS ORDERED: LUMIGAN2.5 M1 OPHTHALMIC (15:15)
[2018-09-05 16:33] VITALS: BP 105/62
[2018-09-05 18:54] VITALS: BP 117/68
[2018-09-05] MEDS ORDERED: POTASSIUM20 PO (19:34)
[2018-09-05] MEDS ORDERED: DEMADEX20 MG PO (19:35)
[2018-09-05 19:57] VITALS: BP 117/68
--- NOTE | 2018-09-06 | NUR ---
PT ARRIVED TO ROOM 358 FROM ER AT 1845. ADMISSION HX AND ASSESSMENT COMPLETED CHARTED. POSADAS INSERTED PER DR MARIN ORDER. GOOD UO NOTED. BLE WRAPPED WITH TITI BANDAGES PER ORDER. FALL PRECAUTIONS IN PLACE. IVF INFUSING ORDERED. WILL CONTINUE TO MONITOR FURTHER.
[2018-09-06 00:02] VITALS: BP 110/76
[2018-09-06 03:22] VITALS: BP 104/67
--- NOTE | 2018-09-06 03:23 | NUR ---
A&OX4. PT SLEPT MOST OF THE NIGHT. Q2H TURN TO PREVENT SKIN BREAKDOWN. POSADAS TO DD WITH ADEQUATE URINE OUTPUT. IVF INFUSING ORDERED. VSS. AFEBRILE. COUGHING UP LARGE AMOUNT YELLOW SPUTUM. NO C/O N/V. FALL PRECAUTIONS IN PLACE. PROGRESSING SLOWLY TOWARD POC GOALS. WILL CONTINUE TO MONITOR FURHTER.
[2018-09-06 06:23] LABS: ABSOLUTE NEUTROPHILS 8.7 thou/uL (1.4-8.2); BASOPHILS 0.2 % (0.0-2.0); EOSINOPHILS 0.4 % (0.0-3.0); HEMATOCRIT 40.3 % (42.0-52.0); MCH 28.6 pg (26.0-34.0); MCHC 32.4 g/dL (28.0-37.0); MCV 88.1 fL (80.0-100.0); MONOCYTES 8.3 % (1.0-8.0); PLATELET COUNT 126 thou/uL (150-400); POLYS 81.1 % (36.0-66.0); RBC 4.57 mil/uL (4.50-6.00); RDW 16.8 % (10.5-14.5); WBC 10.7 thou/uL (4.0-11.0)
[2018-09-06 06:33] LABS: ALBUMIN 2.4 g/dL (3.4-5.0); CALCIUM 9.1 mg/dL (8.5-10.1); CREATININE 1.6 mg/dL (0.7-1.3); MAGNESIUM 2.3 mg/dL (1.8-2.4); POTASSIUM 3.8 mmol/L (3.5-5.1); TOTAL BILIRUBIN 1.1 mg/dL (<0.1-1.0); TOTAL PROTEIN 6.9 g/dL (6.4-8.2)
[2018-09-06 07:22] VITALS: BP 113/66
--- NOTE | 2018-09-06 14:59 | NUR ---
ASSESSMENT: CM REVIEWED CHART AND MET WITH PATIENT AT THE BEDSIDE. PTS SON AND DAUGHTER IN LAW WERE ALSO PRESENT. PT REPORTS THAT HE LIVES AT HOME WITH HIS . PT REPORTS NO STEPS TO ENTER THE HOME OR ONCE INSIDE. PT REPORTS THAT HE AMBULATES USING A WALKER AND ALSO HAS A CANE. PT REPORTS HE IS CURRENTLY IN SERVICES WITH [facility] AND PLANS ON RESUMING THIS AT DISCHARGE. CM NOTIFIED [facility] THAT PATIENT IS HERE AND THEY ARE FOLLOWING. CM WILL CONTINUE TO FOLLOW TO ASSIST NEEDED.
[2018-09-06 16:04] VITALS: BP 105/72
--- NOTE | 2018-09-06 16:37 | EKG ---
[place] [address] 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: LOTUS : 1930 Requested By: Kale Burton Order Number: [id number] MD: Ld Ozuna Measurements Intervals [place] Rate: 109 P: [place]: QRS: -17 QRSD: 120 T: QT: 372 QTc: 502 Interpretive Statements Atrial fibrillation Occasional premature ventricular aberrantly conducted supraventricular complex Low voltage QRS Cannot rule out inferior infarct, age indeterminate Compared to ECG 08/07/2018 12:18:09 low voltage QRS is now present Electronically Signed On 09-06-2018 16:37:12 CDT by Ld Ozuna [email or web address] ��������������������������������������������� <ELECTRONICALLY SIGNED> ���������������������������������������� By: Ld Ozuna MD, [facility] ��������������������������������������������� 09/06/18 1637 1314 1314 Ld Ozuna MD, [facility] /EPI
--- NOTE | 2018-09-06 18:35 | NUR ---
PATIENT WAS PUT ON NPO EXCEPT FOR MAGIC CUP. HE IS STILL HAVING NAUSEA AND VOMITING. PRN ZOFRAN ADMINISTERED WITH LITTLE EFFECT. HE IS PLEASANT. DENIES PAIN. NO BM TODAY. GOOD POSADAS OUTPUT. AN EGD HAS BEEN SCHEDULE TOMORROW. WILL CONT WITH PLAN OF CARE.
[2018-09-06 19:30] VITALS: BP 121/71
[2018-09-07 03:27] VITALS: BP 102/70
--- NOTE | 2018-09-07 03:57 | NUR ---
ASSUMED PT CARE AROUND 1900. A&OX4. DENIES ANY PAIN. DENIES ANY SIGNIFICANT SOA. PT SLEPT MOST OF THE NIGHT. RESP EVEN AND UNLABORED. Q2H TURN TO PREVENT SKIN BREAKDOWN. NPO FOR EGD TODAY. NO C/O N/V TONIGHT. FALL PRECAUTIONS IN PLACE. PROGRESSING SLOWLY TOWARD POC GOALS. WILL CONTINUE TO MONITOR FURTHER.
[2018-09-07 05:50] LABS: HEMATOCRIT 37.8 % (42.0-52.0); HEMOGLOBIN 12.3 gm/dL (14.0-18.0); MCH 28.6 pg (26.0-34.0); MCHC 32.5 g/dL (28.0-37.0); MCV 87.9 fL (80.0-100.0); RBC 4.3 mil/uL (4.50-6.00); RDW 16.6 % (10.5-14.5)
[2018-09-07 06:00] LABS: CALCIUM 8.6 mg/dL (8.5-10.1); CREATININE 1.4 mg/dL (0.7-1.3); MAGNESIUM 2.2 mg/dL (1.8-2.4)
[2018-09-07 09:14] VITALS: BP 109/70
--- NOTE | 2018-09-07 11:43 | NUR ---
care of pt assumed this am @ ~0700. pt soft spoken and resting quietly most of the morning. pt npo, w/ oral swabs to mouth for dryness. ivf's infusing w/o liquids. abernathy catheter functional w/o issues at this time. pt aware of egd this am set for 11am, family at for pt's procedure. call placed to gi lab @ 1120 due to pt still awaiting and family curious. Lauren/gi rn stated egd cancelled due to pt's low gfr. call placed to Dr. Tafoya re: cancelled proceudre. pt and family members updated re: cancelled procedure and why, pt requesting liquid to drink and food now and is very frustrated that he has not had much nutrition over the last few days and the cancellation of the egd. Advanced directive paperwork given to rn, from family, to copy and the copy placed on chart. family.
[2018-09-07 16:50] VITALS: BP 112/68
[2018-09-07 19:30] VITALS: BP 99/66
[2018-09-08 02:01] VITALS: BP 105/73
[2018-09-08 02:27] LABS: HEMATOCRIT 37.9 % (42.0-52.0); HEMOGLOBIN 12.1 gm/dL (14.0-18.0); MCH 28.1 pg (26.0-34.0); MCHC 31.9 g/dL (28.0-37.0); RBC 4.31 mil/uL (4.50-6.00); RDW 16.3 % (10.5-14.5); WBC 7.9 thou/uL (4.0-11.0)
[2018-09-08 02:31] LABS: CALCIUM 8.8 mg/dL (8.5-10.1); CREATININE 1.3 mg/dL (0.7-1.3); POTASSIUM 3.9 mmol/L (3.5-5.1)
[2018-09-08 04:10] VITALS: BP 132/76
--- NOTE | 2018-09-08 04:30 | NUR ---
PATIENT IS SLOWLY PROGRESSING IN HIS CARE PLAN. VITAL SIGNS MOSTLY STABLE WITH PATIENT HAVING NO COMPLAINTS OF PAIN OR NAUSEA. PATIENT DID EXHIBIT A TWENTY- THREE BEAT RUN OF VENTRICULAR TACHYCARDIA THIS MORNING. VITALS TAKEN WITH PATIENT ASYMPTOMATIC. NURSE CLOSELY FOLLOWING PATIENT ON TELE. NO TROUBLES BREATHING ON LOW LEVEL OXYGEN EVIDENCED BY SPOT OXYGENATION AND SATURATION CHECKS. SWALLOW PROTOCOL FOLLOWED DUE TO ASPIRATION RISK. PATIENT WAS ABLE TO HAVE LARGE BOWEL MOVEMENT ON SHIFT AND NO LONGER FEELS CONSTIPATED. UP TO BEDSIDE COMMODE WITH ASSISTANCE INCIDENT FREE, PATIENT IS A HIGH FALL RISK. Q2 TURNS WITH BARRIER CREAM APPLICATION TO GUARD AGAINST SKIN BREAKDOWN. PATIENT HAS BEEN NPO FROM MIDNIGHT ON IN ANTICIPATION OF TODAYS PROCEDURE. CONTINUE PLAN OF CARE.
--- NOTE | 2018-09-08 05:14 | NUR ---
ASSUMED PATIENT CARE AT 1845. PATIENT IS ON 1L NC. PATIENTS HOB IS ELEVATED FOR ASPIRATION PRECAUTIONS. PATIENT HAD A LRG BM ON 09/07/18 AFTER MULTIPLE DAYS OF CONSTIPATION. HE WAS MADE NPO @ 0000 FOR EGD ON 09/08/18. PATIENT HAD AN ASYMPTOMATIC 23 BEAT RUN OF VTACH @ 0159 ON 09/08/18. PATIENT IS A HIGH FALL RISK DUE TO WEAKNESS AND MCDANIEL FALL SCALE. HE IS SBA, MIN ASSIST, WITH GAIT BELT AND NOT IMPULSIVE. PATIENT HAS A POSADAS FOR URINATION. HE IS ALSO Q2 TURNS TO PREVENT SKIN BREAKDOWN. PATIENT IS COOPERATIVE AND PLEASANT.
[2018-09-08 07:15] VITALS: BP 111/79
--- NOTE | 2018-09-08 09:01 | HC ---
[facility] [place] [address] CONSULTATION Name: KYE NEELY Room #: 358-P [facility] IN M.R.#: [id number] Admission: 09/05/18 ������������������ Attend Phys: Arnulfo Grijalva MD Discharge: ������������������ Date of : 32 Report #: [id number] THIS REPORT FOR: //name// CC: Arnulfo Grijalva DATE OF SERVICE: 09/07/2018 ATTENDING PHYSICIAN: Dr. Grijalva. REASON FOR CONSULTATION: UTI. 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 The patient is initially evaluated at Dr. Grijalva's office, found to be mildly dehydrated and he related decreased urinary output. The patient was found to have low blood pressures as well. He is known to have Parkinson's disease. PAST MEDICAL HISTORY: Recent episode of cellulitis left lower extremity. Chronic atrial fibrillation, rate controlled with metoprolol and anticoagulated with Xarelto. Dysphagia and possible aspiration. The patient is on thickened liquids. He is on metoprolol for hypertension and of course, he has some low blood pressure. Previous melanoma surgically excised on back. Cardiomyopathy. Dyslipidemia, benign prostatic hypertrophy, TURP, self-catheterization. DRUG ALLERGIES: None listed. MEDICATIONS: The patient is on melatonin 5 mg at bedtime p.r.n., Latanoprost eye drop to right eye, Benadryl 25 mg at bedtime p.r.n., labetalol 10 mg q. 1h. p.r.n. IV, rivaroxaban 20 mg p.o. daily, carbidopa/levodopa 10/100 t.i.d., half normal saline and KCl 1000 mL every 10 hours, metoprolol 25 mg daily, magnesium oxide 400 mg p.o. daily, atorvastatin 10 mg p.o. daily, Rocephin 1 gram IV daily, Atrovent/albuterol inhalation treatment, fentanyl 50 mg q. 4h. p.r.n., acetaminophen 650 q.i.d. p.r.n., ondansetron 4 mg IV q. 4h. p.r.n. SOCIAL HISTORY: , grown children. Children present and present during my visit with the patient today. PHYSICAL EXAMINATION: GENERAL: Elderly white man, not toxic looking, afebrile since admission. VITAL SIGNS: Temperature 97.8, pulse as high as 124 yesterday at 1604 hours. Today is 79 a minute, respirations 18, BP 109/70. All the blood pressures were obtained in the supine position. I suspect we are dealing with postural hypotension. HEENT: Pupils reactive. Mouth: Carious teeth, poor oral hygiene dentition, needs a full mouth dental extraction. [address] [address] CONSULTATION Name: NEELYKYE Room #: 358-P [facility] IN M.R.#: [id number] Admission: 09/05/18 ������������������ Attend Phys: Arnulfo Grijalva MD Discharge: ������������������ Date of : 32 Report #: [id number] NECK: Supple, no thyromegaly. LUNGS: Clear. HEART: S1, S2, irregularly irregular. No gallops or murmur. ABDOMEN: Soft, no masses or megaly. EXTREMITIES: Some edema of feet and ankles. Cellulitic changes resolved on left leg. NEUROLOGIC: Fine tremor compatible with Parkinson's disease. LABORATORY DATA: Hypernatremia 152 noted. Hypokalemia, resolved. Hyperchloremia present. Azotemia improving with BUN down to 27 and creatinine 1.4, hypoalbuminemia of 2.4 g/dL noted. Hyperbilirubinemia of 1.9 has also improved. The leukocytosis of 12,400 has improved after intravenous hydration. Today's white blood cell count at 10,000, hemoglobin dropped from 14.7-12.3. He has mild thrombocytopenia of 135,000. The urinalysis abnormal with trace ketones, positive nitrite, and abnormal urinalysis compatible with cystitis. Cultures are all pending. RADIOLOGY EVALUATION: A chest x-ray revealed questionable right-sided pulmonary infiltrate. ASSESSMENT: 1. Possible acute cystitis. 2. Dehydration with acute kidney injury, improved, resolved. 3. Leukocytosis, improved. 4. Mild anemia and thrombocytopenia. 5. Hypoalbuminemia. 6. Possible postural hypotension secondary to Parkinson's disease and beta blockers. 7. Chronic atrial fibrillation, rate controlled with beta blockers and anticoagulated with rivaroxaban. 8. History of cellulitis, right leg. 9. Nausea, vomiting and dizziness, question secondary to postural hypotension. 10. Dysphagia. SUGGESTIONS: For time being, let us continue with Rocephin. Obviously once we have the germ or culprit for cystitis, we will change to an oral antibiotic. I will request nursing to document and check for blood pressures in the supine, sitting and upright position if at all possible. Dr. Grijalva, thank you for requesting my suggestions in the care of your patient. ��������������������������������������������� <ELECTRONICALLY SIGNED> ���������������������������������������� By: Ashok Gutierrez MD ��������������������������������������������� 09/08/18 0901 1111 0034 Ashok Gutierrez MD /nt
--- NOTE | 2018-09-08 13:49 | NUR ---
Recommend Clinimix PPN (4.25% AA, D5) at goal rate of 100 mL/hr with 250 mL 20% lipids piggyback. Recommend d/c NaCl IVF.
[2018-09-08 14:31] LABS: INR 1.2; PROTIME 12.7 Seconds (9.3-11.4)
--- NOTE | 2018-09-08 14:32 | NUR ---
SW reviewed chart and spoke with nursing. Pt to have EGD per GI and may need peg tube placement due to dysphagia. Plan is for pt to return home with [facility] for home health when medically stable. [facility] is following to assist as needed with discharge planning.
--- NOTE | 2018-09-08 14:48 | NUR ---
Spoke with pt RNNeal on 3W. Notified PEG tube will be placed 4/12 in IR. Pt to be NPO after midnight. No blood thinners. APTT, PT, INR ordered by this RN.
[2018-09-08 15:22] VITALS: BP 117/72
[2018-09-08 15:26] LABS: APTT 34.1 Seconds (24.5-32.8); INR 1.2; PROTIME 12.7 Seconds (9.3-11.4)
[2018-09-08 19:18] VITALS: BP 127/78
[2018-09-09] VITALS (16 sets, daily range): BP systolic 86–137; BP diastolic 55–92
[2018-09-09 04:19] LABS: CALCIUM 8.9 mg/dL (8.5-10.1); CREATININE 1.2 mg/dL (0.7-1.3); POTASSIUM 4.3 mmol/L (3.5-5.1)
[2018-09-09 04:32] LABS: HEMATOCRIT 38.5 % (42.0-52.0); HEMOGLOBIN 12.5 gm/dL (14.0-18.0); MCH 28.3 pg (26.0-34.0); MCHC 32.4 g/dL (28.0-37.0); MCV 87.4 fL (80.0-100.0); RBC 4.41 mil/uL (4.50-6.00); RDW 16.6 % (10.5-14.5); WBC 7.4 thou/uL (4.0-11.0)
--- NOTE | 2018-09-09 05:16 | NUR ---
PT MAKING SLOW PROGRESS TOWARDS GOALS. PT ASSISTED WITH TURNING OVERNIGHT HE STATES HE IS STILL FEELING WEAK. ALSO STATES HE IS STARTING TO FEEL HUNGRY. HAS DENIED ANY NAUSEA OVERNIGHT.
[2018-09-09 11:22] LABS: ABSOLUTE NEUTROPHILS 6.5 thou/uL (1.4-8.2); BASOPHILS 0.5 % (0.0-2.0); EOSINOPHILS 2.1 % (0.0-3.0); HEMATOCRIT 38.3 % (42.0-52.0); HEMOGLOBIN 12.3 gm/dL (14.0-18.0); LYMPHOCYTES 23.5 % (24.0-44.0); MCH 28.3 pg (26.0-34.0); MCHC 32.2 g/dL (28.0-37.0); MONOCYTES 7.3 % (1.0-8.0); PLATELET COUNT 187 thou/uL (150-400); POLYS 66.6 % (36.0-66.0); RBC 4.35 mil/uL (4.50-6.00); RDW 16.6 % (10.5-14.5); WBC 9.7 thou/uL (4.0-11.0)
[2018-09-09 11:31] LABS: CALCIUM 8.7 mg/dL (8.5-10.1); CREATININE 1.2 mg/dL (0.7-1.3); POTASSIUM 3.9 mmol/L (3.5-5.1)
[2018-09-09 11:34] LABS: APTT 32.9 Seconds (24.5-32.8); INR 1.3; PROTIME 13.2 Seconds (9.3-11.4)
[2018-09-09 11:37] LABS: ALBUMIN 1.7 g/dL (3.4-5.0); TOTAL BILIRUBIN 0.7 mg/dL (<0.1-1.0); TOTAL PROTEIN 5.8 g/dL (6.4-8.2)
--- NOTE | 2018-09-09 12:18 | NUR ---
SW reviewed chart and spoke with nursing. Pt was in IR having peg tube placed and code pankaj called. Pt to transfer to ICU. SW updated EPIC CUPID ANALYST CM. SW/CM to follow and assist as needed with discharge planning.
[2018-09-09 12:25] LABS: HEMATOCRIT 24.8 % (42.0-52.0); MCH 28.2 pg (26.0-34.0); MCHC 31.8 g/dL (28.0-37.0); MCV 88.7 fL (80.0-100.0); RBC 2.79 mil/uL (4.50-6.00); RDW 16.6 % (10.5-14.5)
[2018-09-09 12:27] LABS: HEMOGLOBIN 7.9 gm/dL (14.0-18.0)
--- NOTE | 2018-09-09 12:35 | NUR ---
Pt TRANSFERRED TO ICU. WILL PLACE ON HOLD AND AWAIT ORDERS TO RESUME WHEN APPROPRIATE
[2018-09-09 12:40] LABS: APTT 42.4 Seconds (24.5-32.8); FIBRINOGEN 281.5 mg/dL (210-360); PROTIME 15.5 Seconds (9.3-11.4)
[2018-09-09 12:43] LABS: INR 1.5
--- NOTE | 2018-09-09 12:59 | NUR ---
Assumed care of Pt at 0700. pt alert and oriented x4 in no acute distress reports feeling well this morning. NG tube placed per IR instructions - pt reluctant but agreeable since it will be temporary. pt transported to IR for gastric tube placement where he became hypotensive and code blue was intiated. soon after moved to OR where bleeding was controlled. report called to ICU.
[2018-09-09 13:25] LABS: BE(vivo) -10.8 mmol/L (-2 to +3); HCO3 15.6 mmol/L (22.0-26.0); PCO2 36.4 mmHg (35.0-45.0); sO2 96.2 % (92.0-98.0)
[2018-09-09 13:43] LABS: HEMATOCRIT 34.3 % (42.0-52.0); MCH 28.3 pg (26.0-34.0); MCHC 32.1 g/dL (28.0-37.0); RBC 3.9 mil/uL (4.50-6.00); WBC 24.4 thou/uL (4.0-11.0)
[2018-09-09 13:58] LABS: APTT 32.1 Seconds (24.5-32.8); INR 1.3; PROTIME 13.1 Seconds (9.3-11.4)
[2018-09-09 14:28] LABS: CALCIUM 8.2 mg/dL (8.5-10.1)
[2018-09-09 16:24] LABS: BE(vivo) -9.9 mmol/L (-2 to +3); HCO3 16.2 mmol/L (22.0-26.0); PCO2 36.5 mmHg (35.0-45.0); PO2 153.2 mmHg (80.0-100.0); sO2 98.7 % (92.0-98.0)
[2018-09-09 16:25] LABS: pH 7.266 (7.360-7.450)
[2018-09-09 16:48] LABS: HEMATOCRIT 31.6 % (42.0-52.0); HEMOGLOBIN 10.2 gm/dL (14.0-18.0); MCH 28.3 pg (26.0-34.0); MCHC 32.3 g/dL (28.0-37.0); MCV 87.6 fL (80.0-100.0); RBC 3.61 mil/uL (4.50-6.00); RDW 15.7 % (10.5-14.5); WBC 18.3 thou/uL (4.0-11.0)
--- NOTE | 2018-09-09 17:31 | NUR ---
1425 PT ARRIVED WITH OR STAFF, VENTILATOR IN PLACE, WOUND VAC MIDLINE, OG TO LIS, LEVOPHED AND ROCK-SYN RUNNING, SEE VITALS WITHIN CHARTING. NEW ORDERS RECEIVED FROM ANESTHESIA. DR. MARIN PAGED TO GIVE UPDATE, ORDERS RECEIVED. DR. OLGUIN PAGED FOR NEW CONSULT, ORDERS RECEIVED. DR. GUILLEN PAGED, BOBBY RETURNED PAGED, ORDERS RECEIVED. PT SEDATED ON PRECIDEX, AND ORDERS RECIEVED FOR RESTRAINTS PER TANIA. FAMILY UPDATED ON STATUS, PLAN OF CARE EXPLAINED, NO NEW QUESTIONS AT THIS TIME.
[2018-09-09 17:35] LABS: CALCIUM 7.7 mg/dL (8.5-10.1); CREATININE 0.9 mg/dL (0.7-1.3); POTASSIUM 4.3 mmol/L (3.5-5.1)
[2018-09-09 19:01] LABS: BE(vivo) -4.4 mmol/L (-2 to +3); HCO3 20.2 mmol/L (22.0-26.0); PCO2 35.8 mmHg (35.0-45.0); sO2 97.3 % (92.0-98.0)
[2018-09-10] VITALS (97 sets, daily range): BP systolic 84–160; BP diastolic 44–105
[2018-09-10 05:27] LABS: BE(vivo) -1.1 mmol/L (-2 to +3); HCO3 22.1 mmol/L (22.0-26.0); PO2 114.6 mmHg (80.0-100.0); pH 7.458 (7.360-7.450); sO2 98.4 % (92.0-98.0)
[2018-09-10 05:41] LABS: ABSOLUTE NEUTROPHILS 11.9 thou/uL (1.4-8.2); BASOPHILS 0.1 % (0.0-2.0); EOSINOPHILS 0.2 % (0.0-3.0); HEMATOCRIT 30.8 % (42.0-52.0); HEMOGLOBIN 10.3 gm/dL (14.0-18.0); LYMPHOCYTES 9.5 % (24.0-44.0); MCH 28.5 pg (26.0-34.0); MCHC 33.3 g/dL (28.0-37.0); MCV 85.6 fL (80.0-100.0); MONOCYTES 7.8 % (1.0-8.0); PLATELET COUNT 156 thou/uL (150-400); POLYS 82.4 % (36.0-66.0); RDW 15.4 % (10.5-14.5); WBC 14.4 thou/uL (4.0-11.0)
[2018-09-10 05:48] LABS: ALBUMIN 1.5 g/dL (3.4-5.0); CALCIUM 7.6 mg/dL (8.5-10.1); CREATININE 1.1 mg/dL (0.7-1.3); MAGNESIUM 1.5 mg/dL (1.8-2.4); PHOSPHORUS 2.2 mg/dL (2.5-4.9); POTASSIUM 4.3 mmol/L (3.5-5.1); TOTAL BILIRUBIN 1.1 mg/dL (<0.1-1.0)
--- NOTE | 2018-09-10 07:50 | NUR ---
ASSUMED CARE @ 1900 09/09/18, PT ASSESSMENTS AND VSS COMPLETE PER ICU PROTOCOL. PT ABLE TO FOLLOW COMMANDS, PRECEDEX GTT IN PLACE, FENTANYL GIVEN FOR PAIN DURING THE SHIFT. PT ON THE VENT SATS IN THE HIGH 90'S, SEE PROCESS INTERVENTIONS FOR SPECIFICS. PT AFIB ON THE MONITOR AMIO @ 0.[address], ROCK IN THE PLACE FOR BP MANAGEMENT, LEVOPHED OFF AT THIS TIME. NG IN PLACE TO LIS, PPN IN PLACE @ 80ML/ HR, Q6H ACCUCHECKS AT THIS TIME, WOUND VAC TO THE MID ABD POST- EX LAP, CANISTER CHANGED DURING SHIFT, 200CC OUT. POSADAS IN PLACE. PLAN OF CARE - CONT TO MONITOR.
--- NOTE | 2018-09-10 20:04 | NUR ---
PT WILL OPEN HIS EYES, NOD TO YES/NO QUESTIONS, FOLLOW SIMPLE COMMANDS, MOUTHING PHRASES TO COMMUNICATE WITH HIS FAMILY. REMAINS INTUBATED TODAY. PLAN FOR RETURN TO OR FOR PEG TUBE PLACEMENT AND CLOSURE OF ABD WOUND. CENTRAL LINE PLACED AT BEDSIDE TO RIGHT SUBCLAVIAN. CHEST XRAY DONE AND PER DR OLGUIN, OK TO USE. TITRATING ROCK DOWN ABLE TODAY. PT'S FAMILY AT BEDSIDE AND UPDATED THROUGHOUT THE DAY TODAY. TURNED Q2 HOURS. REPORT GIVEN TO MACHINE BUNCH MAKER RN.
[2018-09-11] VITALS (32 sets, daily range): BP systolic 104–132; BP diastolic 72–91
--- NOTE | 2018-09-11 05:12 | NUR ---
ASSUMED CARE @ 1900 09/10/18, PT ASSESSMENT AND VSS COMPLETE PER ICU PROTOCOL. PT ABLE TO FOLLOW COMMANDS AEB SQUEEZING HANDS AND WIGGLING TOES, PT ABLE TO NOD YES/NO APPROPRIATELY TO QUESTIONS ASKED, PT ON PRECEDEX GTT. PT ON THE VENT, SATS IN THE HIGH 90'S, SEE PROCESS INTERVENTION FOR SPECIFICS. PT AFIB ON THE MONITOR, ROCK GTT IN PLACE, ART LINE IN PLACE, PT AFEBRILE, EDEMA PRESENT SEE INTERVENTIONS FOR SPECIFICS. NG IN PLACE TO LIS, DARK BROWN OUTPUT NOTED, WOUND VAC TO THE ABD IN PLACE. POSADAS IN PLACE, GOP NOTED. BATH GIVEN DURING SHIFT, NO COMPLICATIONS NOTED. PLAN OF CARE - CONT TO MONITOR.
[2018-09-11 05:56] LABS: CALCIUM 7.4 mg/dL (8.5-10.1); MAGNESIUM 1.6 mg/dL (1.8-2.4); POTASSIUM 3.3 mmol/L (3.5-5.1)
--- NOTE | 2018-09-11 08:58 | NUR ---
ON THE VENT, ASSESSMENT DOCUMENTED. PATIENT TO O.R. AT 0840, FAMILY WAS AT THE BEDSIDE WHEN PATIENT LEFT.
--- NOTE | 2018-09-11 11:30 | NUR ---
PATIENT BACK IN ROOM FROM O.R. AT 1030
[2018-09-11 12:21] LABS: BE(vivo) 3.6 mmol/L (-2 to +3); HCO3 27.5 mmol/L (22.0-26.0); PCO2 38.9 mmHg (35.0-45.0); PO2 83.7 mmHg (80.0-100.0); pH 7.468 (7.360-7.450); sO2 96.8 % (92.0-98.0)
[2018-09-11 14:28] LABS: MAGNESIUM 1.8 mg/dL (1.8-2.4); POTASSIUM 3.8 mmol/L (3.5-5.1)
--- NOTE | 2018-09-11 18:58 | NUR ---
BEDSIDE REPORT GIVEN TO NIGHT RN.
[2018-09-12 04:50] LABS: BE(vivo) 9.7 mmol/L (-2 to +3); HCO3 32.7 mmol/L (22.0-26.0); PCO2 37.4 mmHg (35.0-45.0); PO2 69.9 mmHg (80.0-100.0); pH 7.559 (7.360-7.450)
[2018-09-12 05:34] LABS: ABSOLUTE NEUTROPHILS 11.9 thou/uL (1.4-8.2); BASOPHILS 0.4 % (0.0-2.0); EOSINOPHILS 0.7 % (0.0-3.0); HEMATOCRIT 25.3 % (42.0-52.0); HEMOGLOBIN 8.4 gm/dL (14.0-18.0); LYMPHOCYTES 5.9 % (24.0-44.0); MCH 28.4 pg (26.0-34.0); MCHC 33.3 g/dL (28.0-37.0); MCV 85.4 fL (80.0-100.0); MONOCYTES 5.6 % (1.0-8.0); PLATELET COUNT 118 thou/uL (150-400); POLYS 87.4 % (36.0-66.0); RBC 2.96 mil/uL (4.50-6.00); RDW 15.6 % (10.5-14.5); WBC 13.6 thou/uL (4.0-11.0)
[2018-09-12 05:55] LABS: ALBUMIN 1.7 g/dL (3.4-5.0); CALCIUM 7.5 mg/dL (8.5-10.1); MAGNESIUM 1.7 mg/dL (1.8-2.4); PHOSPHORUS 2.4 mg/dL (2.5-4.9); POTASSIUM 3.4 mmol/L (3.5-5.1); TOTAL BILIRUBIN 0.8 mg/dL (<0.1-1.0)
--- NOTE | 2018-09-12 07:27 | NUR ---
PATIENT TRANSFERRED TO ICU; DUE TO CHANGED MEDICAL STATUS, PATIENT IS ON HOLD UNTIL NEW ORDERS ARE RECEIVED FOR OCCUPATIONAL THERAPY IF/WHEN APPROPRIATE.
--- NOTE | 2018-09-12 07:45 | NUR ---
END OF SHIFT SUMMARY: Pt making slow progress toward goals. Remains on vent, Tv 450, FiO2 40%, AC 14, peep 5, sat 97-99%. Lungs coarse with rhonchi throughout. Suctioning small amounts of thick beige sputum after breathing treatments. Monitor remains a-fib with PVC's, rate 90-110. Pt had one 4 beat run VT, was asymptomatic. Remains on quad strength Neosynephrine gtt but able to titrate down from 30 mcg/min to 22 mcg/min over the course of this shift. Pt remains on Precedex for vent management. Awakens easily, follows simple commands, attempts to communicate by gestures. Midline incision with Provena wound vac dry and intact. PEG tube remains to dependent drainage and right nare NG remains to LIS. Very dark, tarry, reddish brown bile drainage from both -- 300cc from NG and minimal from PEG. Buttocks remain reddish purple with small scab on right buttock. No open areas.
[2018-09-12 09:26] LABS: BE(vivo) 7.7 mmol/L (-2 to +3); PCO2 38.4 mmHg (35.0-45.0); PO2 69.7 mmHg (80.0-100.0); pH 7.525 (7.360-7.450); sO2 95.6 % (92.0-98.0)
--- NOTE | 2018-09-12 15:34 | NUR ---
VASCULAR ACCESS NURSE ROUNDING- CENTRAL LINES ARE APPROPRIATE FOR THIS CRITICALLY ILL PATIENT. REMAINS IN ICU, ON VENT AND MULTIPLE IV GTT AND CVP MONITORING
--- NOTE | 2018-09-12 17:43 | H ---
[facility] [place] [address] HISTORY AND PHYSICAL Name: KYE NEELY Room #: 247-P ADM IN M.R.#: [id number] Admission: 09/05/18 ������������������ Attend Phys: Arnulfo Grijalva MD Discharge: ������������������ Date of : 32 Report #: [id number] THIS REPORT FOR: //name// CC: Arnulfo Grijalva DATE OF SERVICE: 09/05/2018 CHIEF COMPLAINT: Nausea and vomiting for 3 days and low blood pressure. HISTORY OF PRESENT ILLNESS: Approximately 3 days ago, he began having nausea and vomiting and low blood pressure. He says he was able to keep solid food down, but he was unable to keep any liquids down. He has been taking all of his medicines. He has been catheterizing himself several times a day as usual, but he has noticed the urine output to become less and the urine to appear more cloudy. He came to my office earlier this morning and was simply almost unable to hold his head up sitting in a wheelchair. His tongue was very dry and his lungs were crystal clear. Heart tones were normal and the rhythm irregularly irregular due to his atrial fibrillation. His abdomen was almost quiet. The scant bowel sounds that were present were a little more frequent and higher pitched. There is no tenderness or other abnormalities on the abdominal exam. He had trace to 1+ edema of both ankles. He was so weak he was unable to stand on the scales to be weighed. He agreed to have the ambulance called to transport him to the Emergency Room at [facility]. In the Emergency Room at [facility], he was found to have a urinary tract infection by the grossly abnormal urinalysis. His acute abdominal series was negative, with pockets of barium still retained in numerous diverticula from a swallowing study done on 08/09/2018. His potassium is low and his BUN is elevated as well as his hemoglobin. These all point towards volume depletion caused by nausea and vomiting caused by a urinary tract infection. PAST MEDICAL HISTORY: Shows he was recently admitted for an acute cellulitis and swelling in his left leg. He was treated with IV antibiotics and transferred to the rehabilitation floor, where the antibiotics were switched to oral. He had significant edema and cellulitis in his left leg that responded to IV diuretics, IV antibiotics and ultimately to Rufino wrapping. He has chronic atrial fibrillation, treated with metoprolol for rate control and Xarelto for anticoagulation. He has dysphagia and was found to aspirate on anything, except nectar and honey-thickened liquids. He has been unhappy with all the liquids being thickened, but has been cooperating as best he can with his dietary restrictions and with speech therapy interventions. He was found to have Parkinson disease on his most recent admission and did well with low doses of carbidopa/levodopa. His blood pressure tends to be low because of the metoprolol succinate required for heart rate control for his atrial fibrillation; ordinarily, it is well tolerated. 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 He has cardiomyopathy. He has hyperlipidemia, BPH and he underwent a TURP in the distant past. Urinary retention still is present and he self-catheterizes 3 times a day at home. ALLERGIES: None known. MEDICATIONS: He takes a prescription eyedrops for glaucoma in the right eye once daily, metoprolol succinate 25 mg by mouth once daily for his atrial fibrillation. Atorvastatin 10 mg daily for hyperlipidemia. Rivaroxaban 20 mg daily for anticoagulation for his AFib. Torsemide 20 mg and potassium 20 mEq, on an as-needed basis for leg edema. On his last hospital stay from 08/07/2018 to 08/18/2018, he did well with honey-thickened liquids, maintaining adequate hydration. SOCIAL HISTORY: He is retired, lives at home independently with his . He does not currently drink or smoke. MEDICATIONS: Atorvastatin 10 mg daily, Lumigan eyedrops 1 drop in the right eye once daily, carbidopa/levodopa 10/100 mg 1 tablet 3 times a day for Parkinson's, magnesium oxide 400 mg 1 daily to replace his magnesium. Melatonin 5 mg at night for sleep, metoprolol succinate 25 mg once in the morning for heart rate control, potassium torsemide 20 mg along with potassium chloride 20 mEq daily when a diuretic is needed for leg edema and Xarelto 20 mg daily for anticoagulation medication. PHYSICAL EXAMINATION: GENERAL: Shows an elderly male appearing younger than his stated age of 88. HEENT: The oropharynx is clear. LUNGS: The lung schneider now have diffuse rhonchi in all lung schneider, more so perhaps in . HEART: S1, S2 normal. ABDOMEN: Soft and nontender, without hepatosplenomegaly or masses. ASSESSMENT: 1. Acute cystitis. 2. Nausea and vomiting from inflammation from inside the bladder. 3. Hypertension. 4. Elevated white blood cell count. 5. Parkinson disease. 6. Orthostatic hypotension. 7. Other medical problems as mentioned. PLAN: The patient also wishes not to be resuscitated. He will continue the Rocephin that has been started. [facility] [address] [address] HISTORY AND PHYSICAL Name: KYE NEELY Room #: 247-P ADM IN M.R.#: [id number] Admission: 09/05/18 ������������������ Attend Phys: Arnulfo Grijalva MD Discharge: ������������������ Date of : 32 Report #: [id number] He requests a Do Not Resuscitate. ��������������������������������������������� <ELECTRONICALLY SIGNED> ���������������������������������������� By: Arnulfo Grijalva MD ��������������������������������������������� 09/12/18 1743 0028 0109 Arnulfo Grijalva MD /nt
--- NOTE | 2018-09-12 19:21 | NUR ---
Assumed care or patient at 0700. Patient easily arousable on precedex gtt. Able to complete 1 hr of CPAP trial, tolerated well. No extubation yet. Patient still has moderate thick secretions. Denies pain. Continues on neosynephrine drip for BP support but titrating down. Start low rate tube feeds through PEG, TPN to remain for tonight. Continue to monitor.
[2018-09-13] VITALS (12 sets, daily range): BP systolic 88–136; BP diastolic 44–89
[2018-09-13 05:44] LABS: CALCIUM 8.1 mg/dL (8.5-10.1); MAGNESIUM 2.1 mg/dL (1.8-2.4); PHOSPHORUS 2.6 mg/dL (2.5-4.9); POTASSIUM 3.2 mmol/L (3.5-5.1)
--- NOTE | 2018-09-13 08:03 | NUR ---
END OF SHIFT SUMMARY: Pt progressing slowly toward goals. VS remain stable on Neosynephrine at 12 mcg/min and FiO2 40%. Pt remains in soft wrist restraints bilaterally to prevent self extubation. Monitor remains a-fib with occasional PVC's, rate 70-90. CVP remains 14-17 cmH2O. Pt able to follow commands, attempts to mouth words. Purple area on buttocks appears smaller; no new breaks in skin integrity. Urine output adequate. Lungs remain coarse, diminished at bases. Suctioning small amounts of thick beige sputum after breathing treatmenst. Tolerating tube feeding well; able to progress rate from 20 to 35 cc over this shift. Pt still has dark tarry bile in stomach when residuals checked. No BM this shift. Provena wound vac intact over midline incision.
--- NOTE | 2018-09-13 08:25 | NUR ---
POST CARDIAC ARREST IN SETTING OF ACUTE HEMORRHAGE 09/09/18, OCCURING DURING IR PLACEMENT OF PEG TUBE. NOW POD #4 EX LAP AND REMAINS ON VENT, LEVO PFF, [place] GTT. FOLLOWS COMMANDS. 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 DC PLAN WAS HOME WITH [facility]. WILL RESUME THERAPIES WHEN APPROPRIATE AND ASSIST WITH COORDINATION OF DC PLAN.
[2018-09-13 08:43] LABS: ABSOLUTE NEUTROPHILS 8.9 thou/uL (1.4-8.2); BASOPHILS 0.2 % (0.0-2.0); EOSINOPHILS 0.8 % (0.0-3.0); HEMATOCRIT 23.3 % (42.0-52.0); HEMOGLOBIN 7.9 gm/dL (14.0-18.0); LYMPHOCYTES 7.8 % (24.0-44.0); MCH 29.2 pg (26.0-34.0); MCHC 33.9 g/dL (28.0-37.0); MCV 86.1 fL (80.0-100.0); MONOCYTES 4.7 % (1.0-8.0); PLATELET COUNT 122 thou/uL (150-400); POLYS 86.5 % (36.0-66.0); RBC 2.71 mil/uL (4.50-6.00); WBC 10.3 thou/uL (4.0-11.0)
[2018-09-13 10:22] LABS: BE(vivo) 7.1 mmol/L (-2 to +3); HCO3 30.1 mmol/L (22.0-26.0); PO2 76.1 mmHg (80.0-100.0); sO2 96.6 % (92.0-98.0)
--- NOTE | 2018-09-13 13:46 | O ---
[facility] [place] [address] OPERATIVE REPORT Name: KYE NEELY Michael Room #: 247-P [facility] IN ..#: [id number] Admission: 09/05/18 ������������������ Attend Phys: Arnulfo Grijalva MD Discharge: ������������������ Date of : 32 Report #: [id number] THIS REPORT FOR: //name// CC: Arnulfo Grijalva DATE OF SERVICE: 09/11/2018 PREOPERATIVE DIAGNOSES: 1. Open abdomen status post emergent exploration for intra-abdominal hemorrhage. 2. Severe protein-calorie malnutrition with recent attempt at percutaneous gastrostomy tube placement. 3. Multiple other medical comorbid conditions. POSTOPERATIVE DIAGNOSES: 1. Open abdomen status post emergent exploration for intra-abdominal hemorrhage. 2. Severe protein-calorie malnutrition with recent attempt at percutaneous gastrostomy tube placement. 3. Multiple other medical comorbid conditions. PROCEDURES PERFORMED: 1. A second look exploratory laparotomy with washout. 2. Placement of a 22-Luxembourger Ovidio gastrostomy tube in the left upper quadrant. 3. Closure of the open abdominal wall. 4. Placement of a topical Prevena wound VAC device. SURGEON: Kayy Metzger M.D. MEDICAL COLLECTOR: Medical student. ANESTHESIA: General endotracheal anesthesia. ESTIMATED BLOOD LOSS: Minimal (less than 10 mL). COMPLICATIONS: None appreciated. SPECIMENS: None. INDICATIONS: The patient is an 88-year-old male who is postoperative day #2 after undergoing an emergent exploration for intra-abdominal hemorrhage sustained at the time of an attempted percutaneous gastrostomy tube placement. The patient has stabilized substantially in the intensive care unit and was left with an open abdomen at his prior exploration. As such, indication was for formal abdominal wall closure as well as placement of a gastrostomy tube for enteral nutritional supplementation. [facility] [address] [place] [address] OPERATIVE REPORT Name: KYE NEELY Michael Room #: 247-P [facility] IN ..#: [id number] Admission: 09/05/18 ������������������ Attend Phys: Arnulfo Grijalva MD Discharge: ������������������ Date of : 32 Report #: [id number] DESCRIPTION OF PROCEDURE: After explaining the risks, benefits and alternatives of the procedure with the patient's family in great detail and obtaining consent, the patient was brought back to the operating room and placed supine on the operating room table. After conducting a thorough timeout procedure verifying correct patient and procedure, the patient was given general endotracheal anesthesia via his indwelling oral tracheal tube. Once adequate anesthesia was obtained, his SCDs were hooked up to pneumatic compression device and he was already on an inpatient regimen of IV antibiotic therapy, which is all in line with the SCIP protocol. The patient's open abdomen ABThera wound VAC was now removed leaving the inner envelope in place. The patient's abdomen was now prepped and draped in standard surgical sterile fashion. I used a sterile blue towel up to the wound edge and another sterile blue towel to grasp the inner plastic lining, which was removed and thrown into trash along with both sterile blue towels keeping the abdominal wound and wall sterile. The abdomen was now draped out in the standard surgical sterile fashion. I now proceeded to evaluate the greater curvature showing complete hemostasis ongoing. The posterior gastrotomy appeared to be healing nicely with no evidence of a leak. The abdomen was copiously irrigated and all irrigant ran clear throughout. I now placed two circumferential pursestring sutures of 3-0 PDS on the anterior wall of the stomach and the fundus while applying inferior traction with a [place] clamp. I now made an anterior gastrotomy in the center most portion of the two concentric pursestring sutures and brought a 22-Luxembourger gastrostomy tube through a stab incision in the left upper quadrant. This was placed through the gastrotomy and the balloon was inflated with 10 mL of sterile water. The concentric pursestring sutures were tied down, tying down the innermost one first and then the outer one to slightly imbricate. Three sutures were then placed in triangulation fashion on the anterior wall of the stomach and were used to anchor it to the peritoneum. Each of these was placed and then were tied down bringing the stomach in contact with the abdominal wall. The gastrostomy tube was then pulled up showing it to be appropriate at 3 cm at the skin level, which held the stomach in close approximation with posterior aspect of the anterior abdominal wall. The external flange was slid down and a 2-0 nylon suture was placed around the flange to add traction. I now closed the midline fascial wound using looped #1 PDS suture in standard running fashion. Skin was closed with skin royer and a Prevena topical wound VAC device was placed in a standard fashion. At the end of the procedure, all instrument, needle and sponge counts were correct. The patient tolerated the procedure without incident, was transitioned back to the Intensive Care Unit still intubated, but in stabilizing condition with no apparent complications. ��������������������������������������������� <ELECTRONICALLY SIGNED> ���������������������������������������� By: Kayy Metzger MD, FACS ��������������������������������������������� 09/13/18 1346 1109 1218 Kayy Metzger MD, FACS /nt
--- NOTE | 2018-09-13 13:46 | O ---
[facility] [place] [address] OPERATIVE REPORT Name: KYE NEELY Room #: 247-P [facility] IN .R.#: [id number] Admission: 09/05/18 ������������������ Attend Phys: Arnulfo Grijalva MD Discharge: ������������������ Date of : 32 Report #: [id number] THIS REPORT FOR: //name// CC: Arnulfo Grijalva DATE OF SERVICE: 09/09/2018 PREOPERATIVE DIAGNOSES: 1. Intra-abdominal hemorrhage from attempted percutaneous gastrostomy placement. 2. Status post code blue event with compressions. 3. Multiple medical comorbid conditions. 4. Severe protein calorie malnutrition. POSTOPERATIVE DIAGNOSES: 1. Intra-abdominal hemorrhage from attempted percutaneous gastrostomy placement. 2. Status post code blue event with compressions. 3. Multiple medical comorbid conditions. 4. Severe protein calorie malnutrition. 5. Hemorrhaging gastroepiploic artery as well as posterior gastrotomy. PROCEDURES PERFORMED: 1. Exploratory laparotomy with washout and control of intra-abdominal bleeding. 2. Suture ligature of bleeding gastroepiploic artery. 3. Closure of posterior gastrotomy with modified Ace patch repair. 4. Placement of an open abdomen wound VAC device. SURGEON: Kayy Metzger MD TELEPHONE COIN BOX COLLECTOR: Robert Montiel DO ANESTHESIA: General endotracheal anesthesia. ESTIMATED BLOOD LOSS: From the actual surgical procedure 20 mL, intra-abdominal blood at the time of opening the abdomen was approximately 3 liters of fresh blood and clot. COMPLICATIONS: None appreciated. SPECIMENS: None. 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 As the patient does have multiple medical comorbid conditions, an attempt was then made for percutaneous [facility] [address] [place] [address] OPERATIVE REPORT Name: NEELYKYE Room #: 247-P [facility] IN ..#: [id number] Admission: 09/05/18 ������������������ Attend Phys: Arnulfo Grijalva MD Discharge: ������������������ Date of : 32 Report #: [id number] gastrostomy tube placement in Interventional Radiology. At the time of attempted placement, the patient did develop severe hemorrhaging and a code blue event was called. The patient underwent compressions due to asystole and was revived with ACLS protocol. Due to the ongoing hemorrhaging and his DNR status having been rescinded a day prior, indication was for emergent exploration today with findings of a hemorrhaging gastroepiploic artery. DESCRIPTION OF PROCEDURE: After explaining the risks, benefits and alternatives of the procedure with the patient's family and obtaining consent, the intubated patient was brought emergently into the operating room where he was placed on the operating room table. After conducting a thorough timeout procedure verifying correct patient and procedure, the patient was given a dose of IV antibiotic therapy as well as having his SCDs hooked up to pneumatic compression device. The patient's abdomen was now emergently prepped and draped in standard surgical sterile fashion while anesthesia was placing central venous lines and arterial lines. A #10 bladed scalpel was used to create an upper midline incision from the subxiphoid region to the supraumbilical location. Electrocautery was used to carry this down through skin and subcutaneous tissues to ensure hemostasis until I arrived upon the anterior fascia. The fascia was scored longitudinally and a finger was placed in the abdomen to control the incision. Now, I opened the entire fascia in this controlled setting with overt hemorrhage being seen. The Cell Saver was now used to suction out all of the intra-abdominal blood and there was a grossly evident pulsatile bleeding coming from the left upper quadrant. Evaluation showed this to be running along the greater curvature of the stomach and I was able to control the bleeding between manual compression of the greater curvature of the stomach with my fingers. We were now able to fully suction out the entire abdominal contents including large clots and fresh blood. This totaled approximately 3 liters and Cell Saver was used for autotransfusion. This allowed anesthesia to catch up from a fluid status and overt blood transfusion. As the patient began to slowly stabilize, evaluation of the bleeding showed that it was in fact a large gastroepiploic artery. The X1 EnSeal device was used for hemostasis as well as suture ligature using 3-0 PDS in standard [id number] fashion. This yielded complete hemostasis. I now copiously irrigated the intra-abdominal domain with normal saline until it ran clear in all quadrants. The percutaneous gastrostomy tube that was placed was removed as it entered in the posterior gastric wall and the posterior gastrotomy was closed in 2 layers, first suturing the hole closed and then placing Lembert sutures with the omental tongue and a doing modified Ace patch repair for closure. As the patient was still critically ill, on multiple pressors and due to his age and multiple comorbid conditions, I felt the best course of action at this point was to get him over to the ICU as fast as possible for further resuscitation. As such, an open abdomen ABThera wound VAC device was placed in standard fashion and the patient was transitioned to the ICU in stabilizing condition, although still critically ill with no apparent [facility] [address] [place] [address] OPERATIVE REPORT Name: KYE NEELY Room #: 247-P [facility] IN [facility]#: [id number] Admission: 09/05/18 ������������������ Attend Phys: Arnulfo Grijalva MD Discharge: ������������������ Date of : 32 Report #: [id number] intraoperative complications. At the end of the procedure, all instrument, needle and sponge counts were correct. ��������������������������������������������� <ELECTRONICALLY SIGNED> ���������������������������������������� By: Kayy Metzger MD, FACS ��������������������������������������������� 09/13/18 1346 1104 1304 Kayy Metzger MD, FACS /nt
--- NOTE | 2018-09-13 20:56 | NUR ---
[place] GTT OFF THIS AM. CPAP TRIAL DONE AND ABG'S GIVEN TO DR OLGUIN. RECIEVED ORDER TO EXTUBATE PATIENT. PRECEDEX TURNED OFF. PT EXTUBATED AT 1215. COUGHING UP LARGE AMOUNTS OF THICK BEIGE SPUTUM THIS AFTERNOON. USING YAUNKEUR. TPN DISCONTINUED TODAY. SLOWLY ADVANCING TUBE FEEDING. TOLERATING WELL. LEFT RADIAL JUAREZ VERY POSITIONAL. PT HAVING TREMORS TODAY. RESTARTED ON LEVODOPA/CARVADOPA. PT'S SONS AND AT BEDSIDE AND UPDATED TODAY. REPORT GIVEN TO TEACHING ASSISTANT RN.
[2018-09-14] VITALS (13 sets, daily range): BP systolic 127–155; BP diastolic 53–77
--- NOTE | 2018-09-14 03:10 | NUR ---
ASSUMED CARE AT 1900. PT A0 X4. ON TUBE FEEDING AT 50ML/HR. DENIES PAIN N/V/D. PATIENT HEART RATE SUSTAINING ABOVE 120s AT THE BEGINNING OF THE SHIFT. CARDIOLOGY DR. MARCIAL NOTIFIED AND ORDER CARDIZEM DRIP PER PROTOCOL.PATIENT HEART NOW CONTROLED RANGE 80 -110. AT 0240, PT C/O STOMACH FEELING FULL. NO BOWEL SOUNDS. TUBE FEEDING STOPPED. NOTICED ALSO TUBE FEEDING LEAKING AROUND THE ENTRY SITE. PT CONTINUES TO BE COURSE IN ALL HIS LUG CAIN, AND FLUID OVERLOADED. EDEMA +3 TO +4 IN BOTH UPPER AND LOWER EXTREMITIES. WIPPING EDEMA BOTH UPPER EXTREMITIES. COPIOUS ORAL SECRETIONS , SCHUSTER IN COLOR. WILL CONTINUE TO FOLLOW POC.
[2018-09-14 10:29] LABS: HCO3 32.3 mmol/L (22.0-26.0); PCO2 34.2 mmHg (35.0-45.0); PO2 48.8 mmHg (80.0-100.0); pH 7.593 (7.360-7.450); sO2 90.5 % (92.0-98.0)
[2018-09-14 13:41] LABS: BE(vivo) 11.6 mmol/L (-2 to +3); HCO3 34.7 mmol/L (22.0-26.0); PCO2 38.8 mmHg (35.0-45.0); PO2 69.5 mmHg (80.0-100.0); pH 7.569 (7.360-7.450); sO2 95.9 % (92.0-98.0)
--- NOTE | 2018-09-14 13:49 | NUR ---
Pt remains in ICU today but was able to wean off the vent yesterday. He is following commands and able to participate in conversation. 5N eval initiated and they are following.
[2018-09-14 15:42] LABS: BE(vivo) 11.1 mmol/L (-2 to +3); HCO3 34.3 mmol/L (22.0-26.0); PCO2 39.4 mmHg (35.0-45.0); PO2 75.4 mmHg (80.0-100.0); pH 7.558 (7.360-7.450); sO2 96.6 % (92.0-98.0)
--- NOTE | 2018-09-14 19:44 | NUR ---
pt alert and oriented. drowsy through out the day. on 10L nc. ABG's with critically low po2. orders to place pt on bipap. noted temp of 100.4. prn tylenol suppository given. orders from dr. bernardo to d/c art line and left IJ central line. blood cultures x2 redrawn. tube feedings on hold per general surgery. pt to start tpn until further notice. peg tube to dependant drainage. wound vac remains in place. pt denies any pain or discomfort. suctioning frequently at bedside - weak cough effort.
[2018-09-14 22:57] LABS: ABSOLUTE NEUTROPHILS 12.5 thou/uL (1.4-8.2); BASOPHILS 0.2 % (0.0-2.0); EOSINOPHILS 0.2 % (0.0-3.0); HEMATOCRIT 22.2 % (42.0-52.0); HEMOGLOBIN 7.3 gm/dL (14.0-18.0); LYMPHOCYTES 6.7 % (24.0-44.0); MCH 28.3 pg (26.0-34.0); MCV 85.5 fL (80.0-100.0); PLATELET COUNT 162 thou/uL (150-400); POLYS 86.9 % (36.0-66.0); RBC 2.59 mil/uL (4.50-6.00); WBC 14.3 thou/uL (4.0-11.0)
[2018-09-14 23:37] LABS: HCO3 32.5 mmol/L (22.0-26.0); PCO2 39.9 mmHg (35.0-45.0); PO2 89.7 mmHg (80.0-100.0); pH 7.529 (7.360-7.450); sO2 97.6 % (92.0-98.0)
[2018-09-15] VITALS (32 sets, daily range): BP systolic 119–176; BP diastolic 54–103
[2018-09-15 05:12] LABS: BE(vivo) 8.5 mmol/L (-2 to +3); HCO3 32.6 mmol/L (22.0-26.0); PCO2 43.9 mmHg (35.0-45.0); PO2 75.2 mmHg (80.0-100.0); pH 7.489 (7.360-7.450); sO2 95.9 % (92.0-98.0)
[2018-09-15 05:30] LABS: ABSOLUTE NEUTROPHILS 12.9 thou/uL (1.4-8.2); BASOPHILS 0.1 % (0.0-2.0); EOSINOPHILS 0.3 % (0.0-3.0); HEMATOCRIT 22.3 % (42.0-52.0); HEMOGLOBIN 7.2 gm/dL (14.0-18.0); MCHC 32.5 g/dL (28.0-37.0); MCV 86.2 fL (80.0-100.0); MONOCYTES 5.9 % (1.0-8.0); PLATELET COUNT 163 thou/uL (150-400); POLYS 88.7 % (36.0-66.0); RBC 2.59 mil/uL (4.50-6.00); RDW 16.1 % (10.5-14.5); WBC 14.6 thou/uL (4.0-11.0)
[2018-09-15 05:34] LABS: ALBUMIN 2.9 g/dL (3.4-5.0); CALCIUM 8.9 mg/dL (8.5-10.1); CREATININE 1.4 mg/dL (0.7-1.3); TOTAL BILIRUBIN 1.7 mg/dL (<0.1-1.0); TOTAL PROTEIN 5.8 g/dL (6.4-8.2)
[2018-09-15 05:36] LABS: POTASSIUM 2.8 mmol/L (3.5-5.1)
--- NOTE | 2018-09-15 07:11 | NUR ---
ASSUMED CARE 1900 09/14/18, PT ASSESSMENTS AND VSS COMPLETE PER ICU PROTOCOL. PT ALERT WHEN STIMULATED, PT ABLE TO FOLLOW SIMPLE COMMANDS, PT ABLE TO TELL RN WHAT HE NEEDS AND WHEN, FENTANYL GIVEN ONCE DURING THE SHIFT FOR PAIN. PT ON BIPAP PART OF THE NIGHT, BUT AT APPROX 0000 09/15/18, PT REFUSES TO PUT BIPAP BACK ON, HF NC PUT ON THE PT, PT TOLERATING, SATS IN THE HIGH 90'S, DR OLGUIN AWARE, PT SOUNDS VERY COARSE, PT SUCTIONED NEED, YELLOW THICK SECRETIONS NOTED.PT A-FIB WITH PVC'S ON THE MONITOR, AMIO GTT IN PLACE, PT AFEBRILE, EDEMA PRESENT SEE PROCESS INTERVENTION FOR SPECIFICS. PT PEG GOT REMOVED WHILE TURNING PATIENT DURING THE SHIFT, DR ORTEGA PAGED TWICE, MESSAGE LEFT TWICE TO INFORM DR ORTEGA, Q6H ACCUCHECKS IN PLACE, BS STABLE, PREVENA TO WOUND. POSADAS IN PLACE, GOP NOTED, FALL PRECAUTIONS IN PLACE, PLAN OF CARE- CONT TO MONITOR.
--- NOTE | 2018-09-15 13:56 | NUR ---
PT SIGNED CONSENT FOR GASTRIC TUBE PLACEMENT WITH DISCUSSION OF RISKS/BENEFITS. REMAINED NPO, TRANSFERRING BY ICU BED WITH INTERVENTIONAL RADIOLOGY CREW.
--- NOTE | 2018-09-15 20:15 | NUR ---
SHIFT SUMMARY: PT PROGRESSED TODAY. IN AM, PT HAVING AUDIBLE RHONCI, LUNGS WITH RHONCI. DR. OLGUIN PRESENT AND IN TO EVALUATE PT. LASIX IV GIVEN PER ORDER. PT POSITIONED UPRIGHT IN BED AND HE IS ABLE TO COUGH THIN YELLOW/WHITE SECRETIONS INTO BACK OF HIS THROAT, THEN RN SUCTIONING LARGE AMOUNT SECRETIONS. PROGRESSIVELY, PT ABLE TO CLEAR SECRETIONS WITH EPISODE RESOLVED. AFIB WITH PVC'S, COUPLETS, TRIPLETS, MULTIFOCAL PVC'S- AMIODARONE CONTINUED AT 0.5 MG/MIN, SEE ORDER. NPO, POSADAS WITH LARGE AMOUNT URINE OUTPUT IN RESPONSE TO LASIX. SEE MARS/LAB FOR CONTINUING IV POTASSIUM REPLACEMENT. A COUPLE OF FAMILY MEMBERS PRESENT TO SEE PT IN AM. INTERVENTIONAL RADIOLOGY(IR) NOTIFIED RN THAT GASTRIC TUBE WOULD BE PLACED TOMORROW, THEN LATER IR CALLED STATING THEY WERE COMING TO GET PT FOR PROCEDURE. IMMEDIATELY OBTAINED CONSENT, DISCUSSED WITH PT, THEN WHILE PT SIGNING CONSENT, IR CREW PRESENT TO TRANSFER PT IN ICU BED WITH MONITOR. FAMILY MEMBERS PRESENT TO SEE PT HOWEVER HE WAS IN IR. FERNANDEZ NEELY, SON FRUSTRATED THEY WERE NOT CONTACTED ABOUT THE DOBHOFF PLACEMENT. Christiano RANDOLPH, ICU AUXILIARY POWER EQUIPMENT OPERATOR PRESENT, THEN SHE COMMUNICATED THE FAMILY MEMBERS CONCERNS TO Bebe RUSSELL, ICU PSYCHIATRIC SOCIAL WORKER SUPERVISOR. SOON PT RETURNED FROM IR, ALL THE FAMILY NOTIFIED WAS NOTIFIED. THEY CAME BACK TO THE ROOM TOGETHER, THEN NOTIFIED BY RN THAT THE GASTRIC TUBE WAS NOT PLACED. DURING THE COURSE OF CONVERSATION FERNANDEZ NEELY, SON AND PT'S DPOA, STATED THAT HE WANTED TO BE NOTIFIED OF ANY CHANGES WITH HIS FATHER'S CONDITION. I INFORMED HIM, I WOULD CALL HIM IF THERE WAS ANY CHANGE AND I WOULD NOTIFY THE FOLLOWING RN OF HIS CONCERN & TO CALL IF ANY CHANGE. PT TIRED, THEN DOZED INTERMITTENTLY IN THE LATE AFTERNOON. REPORT TO ONCOMING RN.
[2018-09-16] VITALS (45 sets, daily range): BP systolic 130–164; BP diastolic 58–111
[2018-09-16 05:01] LABS: CREATININE 1.6 mg/dL (0.7-1.3)
[2018-09-16 05:16] LABS: POTASSIUM 2.9 mmol/L (3.5-5.1)
--- NOTE | 2018-09-16 06:38 | NUR ---
ASSUMED CARE @ 1900 09/15/18, PT ASSESSMENT AND VSS COMPLETE PER ICU PROTOCOL. PT ALERT AND ABLE TO FOLLOW COMMANDS WHEN STIMULATED, PT DENIES PAIN, TREMORS PRESENT, PT HAS HX OF PARKINSONS. PT A-FIB WITH FREQUENT PVC'S ON THE MONITOR, PT ON AMIODARONE GTT @ 0.5, PT AFEBRILE, EDEMA PRESENT, SEE PROCESS INTERVENTIONS FOR SPECIFICS. PT ON 3.5L WHILE AWAKE, ON BIPAP WHILE ASLEEP, SATS IN THE HIGH 90'S, NO SIGNS OF SOA. CLINIMAX RUNNING @ 50ML/HR, PHARMACIST PRIYA CALLED TO CLARIFY CLINIMAX ORDER, LAST NIGHT TWO ORDERS OF CLINIMAX WHERE ON THE EMAR, BOTH ORDERS WHERE THE EXACT SAME, I WAS ADVISED BY PHARMACY TO CONTINUE TO RUN THE BAG THAT WAS DISCONTINUED AND HE THEN D'CD THE SECOND ORDER AND THEN REORDERED ANOTHER BAG FOR TODAY. POSADAS IN PLACE, APPROX 3L OUT DURING THIS SHIFT. FALL PRECAUTIONS IN PLACE, PLAN OF CARE- CONT TO MONITOR.
[2018-09-16 13:26] LABS: PHOSPHORUS 3.1 mg/dL (2.6-4.7)
--- NOTE | 2018-09-16 16:08 | NUR ---
FOLLOWING FOR DC PLANNING. CLINICAL INFO REVIEWED. PT ON NC O2 3L , BIPAP TO SLEEP AND PRN. ON TPN PEG CAME OUT 09/14. DR. WISE MET WITH FAMILY TODAY ON ROUNDS AND UPDATED CONDITION AND PLAN OF CARE. PLAN FOR PEG PLACEMENT IN IR Wednesday09/19/18. 5N FOLLOWING AND PT WORKING WITH PT/OT. PT AND FAMILY AGREEABLE TO ACUTE REHAB ON 5N WHEN MEDICALLY STABLE IF CONITNUE TO MEET ADMISSION CRITERIA.
--- NOTE | 2018-09-16 19:40 | NUR ---
ASSUMED CARE OF PATIENT AT 0700, PATIENT AWAKE BUT DROWSY. PATIENT STATES THAT HE IS NOT FEELING WELL TODAY HE WAS YESTERDAY. DURING ASSESSMENT IT WAS NOTED THAT HIS LEFT LATERAL ABDOMEN WAS PINK AND SLIGHTLY WARM TO THE TOUCH, PATIENT IS AFEBRILE AND DENIES ANY INCREASED PAIN. 09[address] DR [address] DR WISE NOTIFIED OF THE PINK AREA AND MADE AWARE THAT THE PATIENT DID NOT GET HIS PEG TUBE YESTERDAY DO TO UNKNOWN REASON. DR WISE WANTS DR PETERSEN TO PLACE ON WEDNESDAY. DR ORTEGA AGREES. ALSO ASKED DR WSIE TO COME SEE PATIENT FAMILY AND MAKE THEM AWARE OF ALL PLANS, DR WISE HERE AT 1140 AND SPOKE WITH FAMILY. DR BASSETT ALSO ASKED TO COME SPEAK WITH FAMILY AND HE WAS HERE AT 1610 AND SPOKE WITH FAMILY. I ASKED GI IF IT WAS OKAY TO PLACE A NG OR DOBHOFF IN THE EVENT THAT ITS NEEDED. THEY STATED THAT IT WOULD BE FINE TO PLACE IF NEEDED. NO OTHER CONCERNS AT THIS TIME. WILL CONTINUE TO MONITOR AND CARE PER PLAN OF CARE.
[2018-09-17] VITALS (46 sets, daily range): BP systolic 127–173; BP diastolic 49–89
--- NOTE | 2018-09-17 04:19 | NUR ---
ASSUMED CARE OF PT AT 1900. PT DROWSY ORIENTED X4. PT ABLE TO ANSWER QUESTIONS BUT DOES HAVE SOME HOARSNESS. PT ABLE TO FOLLOW COMMNADS AND ASSIST WITH TURNS. A FIB ON THE MONITOR. VSS. POLYURIA. FECAL MANAGMENT SYSTEM. FLUSHED. MINIMAL OUTPUT. PT HAS BEEN ON 2L NC FOR MOST OF THE NIGHT. TOLERATED WELL. DOES HAVE SOME HEAVY BREATHING WITH ACTIVITY, BUT DENIES SOA. WILL CONTINUE TO MONITOR.
[2018-09-17 04:51] LABS: HEMATOCRIT 20.6 % (42.0-52.0); MCH 29.2 pg (26.0-34.0); MCHC 33.9 g/dL (28.0-37.0); MCV 86.1 fL (80.0-100.0); RBC 2.39 mil/uL (4.50-6.00); RDW 15.9 % (10.5-14.5); WBC 7.2 thou/uL (4.0-11.0)
[2018-09-17 05:00] LABS: CALCIUM 9.1 mg/dL (8.5-10.1); CREATININE 1.4 mg/dL (0.7-1.3); POTASSIUM 3.6 mmol/L (3.5-5.1)
--- NOTE | 2018-09-17 19:26 | NUR ---
PT ALERT AND ORIENTED X4, VERY PLEASANT MOOD, FAMILY AT BEDSIDE MOST OF THE DAY. UPDATED THEM OF PLAN OF CARE, (POSSIBLE PEG TUBE PLACEMNET ON WEDNESDAY, 1UPRBCS NEEDED TODAY FOR HGB 7.0, INCREASE ACTIVITY PT EVALUATION) NO PAIN AT THIS TIME, AMIODARONE 0.5MG CONTINUOUS INFUSION, VITAL SIGNS STABLE, WILL CONTINUE TO MONITOR.
--- NOTE | 2018-09-17 22:37 | NUR ---
GCS 15. A&O X3-4. FC, CABRERA. BLE WEAKNESS. BUE TREMORS NOTED. SLOW TO RESPOND AT TIMES. AFIB ON MONITOR. AMIO GTT. LUNGS COARSE TO AUSCULTATION. PRODUCTIVE COUGH WITH THICK YELLOW-RAGLAND SPUTUM. O2 SAT > 92% ON 2L PER NC. HYPOACTIVE BOWEL SOUNDS. PT REMAINS NPO; RECEIVING TPN WITH LIPIDS. FMS IN PLACE. POSADAS TO DD. ADEQUATE URINE OUTPUT. PREVENA WOUND VAC TO MIDLINE ABDOMENAL INCISION INTACT AND MAINTAINING PRESSURE. BILATERAL BUTTOCKS PURPLE/RED BUT BLANCHABLE. SCROTAL EDEMA NOTED. VITAL SIGNS AND ASSESSMENTS DOCUMENTED. WILL CONTINUE TO MONITOR.
[2018-09-18] VITALS (27 sets, daily range): BP systolic 104–157; BP diastolic 60–84
[2018-09-18 04:53] LABS: HEMATOCRIT 24.1 % (42.0-52.0); HEMOGLOBIN 8.1 gm/dL (14.0-18.0); MCH 28.8 pg (26.0-34.0); MCHC 33.5 g/dL (28.0-37.0); MCV 85.9 fL (80.0-100.0); RBC 2.81 mil/uL (4.50-6.00); RDW 16.1 % (10.5-14.5); WBC 7.1 thou/uL (4.0-11.0)
[2018-09-18 05:08] LABS: CALCIUM 9.1 mg/dL (8.5-10.1); CREATININE 1.6 mg/dL (0.7-1.3); MAGNESIUM 2.1 mg/dL (1.8-2.4); PHOSPHORUS 3.1 mg/dL (2.5-4.9); POTASSIUM 3.8 mmol/L (3.5-5.1)
--- NOTE | 2018-09-18 14:37 | NUR ---
0915 PT SAT ON SIDE OF BED, REQUIRED ASSISTANCE OF TWO NURSES, TOLERATED WELL, ENCOURAGED ACTIVE MOVEMENTS, PT ABLE TO SIT TO STAND USING GATE BELT AND WALKER THREE TIMES, ENCOURAGED MARCHING IN PLACE. PT SLIGHTLY SHORT OF BREATH, OXYGEN REMAINED STABLE. MANUAL PERCUSSION ADMINISTERED ON PT BACK, ENCOURAGED DEEP BREATHING AN COUGHING. PT PLACED BACK INTO BED TO REST. WILL ATTEMPT TO GET INTO CHAIR THIS AFTERNOON.
--- NOTE | 2018-09-18 14:46 | NUR ---
SPOKE WITH DR. PERRIN REGARDING BARIUM ADMINISTRATION AT 1800. DISCUSSED THE RISK FOR ASPIRATION. HE SAID TO-- "GIVE IT ORALLY SLOWLY. IF A SMALL AMOUNT OF ASPIRATION OCCURS ITS OKAY. WE USED TO USE IT FOR BARIUM BRONCHOGRAPHY." WILL ADMINISTER BARIUM AT ORDERED TIME.
--- NOTE | 2018-09-18 22:38 | NUR ---
GCS 15. A&O X3-4. FC, CABRERA. GENERALIZED WEAKNESS. BUE TREMORS NOTED. SLOW TO RESPOND AT TIMES. AFIB ON MONITOR. AMIO GTT. LUNGS COARSE TO AUSCULTATION. PRODUCTION COUGH. ORAL SUCTION PRN. O2 SAT > 92% ON 2L PER NC. HYPOACTIVE BOWEL SOUNDS. PT REMAINS NPO; RECEIVING TPN WITH LIPIDS. FMS IN PLACE. POSADAS TO DD. ADEQUATE URINE OUTPUT. PREVENA WOUND VAC TO MIDLINE ABDOMENAL INCISION INTACT AND MAINTAINING PRESSURE. BILATERAL BUTTOCKS PURPLE/RED BUT BLANCHABLE. SCROTAL EDEMA NOTED. VITAL SIGNS AND ASSESSMENTS DOCUMENTED. WILL CONTINUE TO MONITOR.
[2018-09-19] VITALS (22 sets, daily range): BP systolic 98–122; BP diastolic 58–77
[2018-09-19 04:24] LABS: HEMATOCRIT 24.2 % (42.0-52.0); HEMOGLOBIN 8.1 gm/dL (14.0-18.0); MCH 28.9 pg (26.0-34.0); MCHC 33.4 g/dL (28.0-37.0); MCV 86.7 fL (80.0-100.0); RBC 2.79 mil/uL (4.50-6.00); RDW 16.2 % (10.5-14.5); WBC 6.5 thou/uL (4.0-11.0)
[2018-09-19 04:36] LABS: CREATININE 1.5 mg/dL (0.7-1.3); MAGNESIUM 2.3 mg/dL (1.8-2.4); PHOSPHORUS 3.3 mg/dL (2.5-4.9); POTASSIUM 3.9 mmol/L (3.5-5.1)
--- NOTE | 2018-09-19 08:55 | NUR ---
Assumed care of patient at 0700. Patient awake, resting comfortably. Kevin, and son Franklin at bedside. Plans for IR for peg tube placement today. After speaking with IR dept at 0855, was informed that patient is planned for timeframe after 1300. Updated both and son. They exhibited some frustration as they had apparently been told "morning" for procedure, but are agreeable to updated timeframe. Continue to notify them as information is updated.
--- NOTE | 2018-09-19 17:52 | NUR ---
Patient returned to room from IR awake but drowsy, denies pain. Increased NC to 4L due to desat with head down during procedure, will wean back to baseline as able. Increased thick sputum production, patient has moderately strong cough and can use the yankeur. Peg tube site covered with gauze, no leakage or drainage noted. Ok'd for use starting tomorrow. TPN infusing. Amio gtt remains. Updated family, they were also updated by Dr. Ortiz. Continue to monitor.
[2018-09-20] VITALS (19 sets, daily range): BP systolic 101–161; BP diastolic 59–81
[2018-09-20 05:28] LABS: CALCIUM 9.1 mg/dL (8.5-10.1); CREATININE 1.6 mg/dL (0.7-1.3); POTASSIUM 4.2 mmol/L (3.5-5.1)
--- NOTE | 2018-09-20 06:34 | NUR ---
ASSUMED CARE @ 1900 09/19/18, PT ASSESSMENTS AND VSS COMPLETE PER ICU PROTOCOL. PT ALERT AND ORIENTED X4, PT ABLE TO FOLLOW COMMANDS, FENTANYL GIVEN FOR PAIN DURING THE SHIFT, TREMORS PRESENT, PT HAS HX OF PARKINSONS. PT AFIB ON THE MONITOR, AMIO GTT IN PLACE. PT ON 2L OF 02 SATS IN THE HIGH 90'S, NO SIGNS OF SOA. PREVENA WOUND VAC BATTERY DURING THE SHIFT, BLACK FOAM TAKEN OFF, ABD PADS PUT ON THE SUTURED SITE, PER DR ORTEGA'S NOTE. PEG TUBE IN PLACE IN LUQ, PEG USED TO GIVE AM MEDS, PER DR SANTOS NOTE, TPN STILL RUNNING SCHEDULED. POSADAS IN PLACE, GOP NOTED, FECAL MANAGEMENT IN PLACE. FALL PRECAUTION IN PLACE, PLAN OF CARE- CONT TO MONITOR.
--- NOTE | 2018-09-20 17:01 | NUR ---
PT ALERT AND ORIENTED X4. OT WORKING WITH PATIENT. HE SAT AT EDGE OF BED AND BATH/SHAVE DONE. UP TO CHAIR WITH PHYSICAL THERAPY AND SAT IN CHAIR FOR APPROX 6 HOURS. AMBULATED WITH ASSIST AND WALKER BACK TO BED. TUBE FEEDING STARTED THIS AFTERNOON ORDERED. TOLERATING WELL AT THIS TIME. TO DC TPN THIS EVENING. PT USING I.S. AND COUGHING/DEEP BREATHING. USING YAUNKEUR TO SUCTION NEEDED. ORDER TO TRANSFER TO CCU. PT FAMILY AT BEDSIDE AND UPDATED. REPORT CALLED TO HONORIO MORENO RN.
--- NOTE | 2018-09-20 18:04 | NUR ---
PT TRANSFERRED TO UNIT FROM ICU AT APPROX 1400. PT A&OX4, IN BED. PT HAS TREMOR WITH HX OF PARKINSONS. PT ON TUBE FEEDING AT 30 TO BE INCREASE BY 15ML Q6HR TO GOAL RATE OF 60. HOLD FOR RESIDUAL OVER 100. NO FLUSHES ORDERED YET. PT HAD FAMILY AND FRIENDS IN THE ROOM. VITALS WITHIN NORMAL LIMITS AND PT WAS AFIB ON TELEMETRY. WILL CONT WITH POC
[2018-09-21 00:46] VITALS: BP 106/70
--- NOTE | 2018-09-21 04:33 | NUR ---
ASSUMED PT CARE AT 1900 WITH NO SIGN OF DISTRESS NOTED. PT IS ALERT AND ORIENTED. PT IS LAYING IN BED AND IS RESTING COMFORTABLY. PT IS STABLE. SCHEDULED MEDS ADMINISTERED TO PT THROUGH PEG TUBE. PT IS REPOSITIONED, DENIES ANY FURTHER NEEDS AT THIS TIME.
[2018-09-21 05:31] VITALS: BP 113/88
[2018-09-21 07:42] VITALS: BP 116/80
--- NOTE | 2018-09-21 10:20 | NUR ---
PEG PLACED IN IR 09/19. TOLERATING TUBE FEEDING SO FAR AND TPN DC 09/20. IV ZOSYN DC 09/21. TRANSFER OUT OF ICU 09/20. [facility]N ACUTE REHAB HAS ACCEPTED PT WHEN MEDICALLY READY. CHECKED WITH CARDIOLOGY AND PER MURALI [place] RN MILITARY, PT STABLE FORM CARDIOLOGY STANDPOOINT FOR TRANSITION TO 5N IF PRIMARY AGREES. 2N SWS UPDATED.
--- NOTE | 2018-09-21 11:42 | NUR ---
spoke with patient, spouse and son at bedside. Reviewed provider choice list, signed on chart. patient and family with plan for 5N once stable. 5N is accepting.
[2018-09-21 12:16] VITALS: BP 99/50
--- NOTE | 2018-09-21 14:10 | NUR ---
WOUND CONSULT: PT. WAS SEEN TODAY BY DR. BREEN AND MYSELF. WE WERE ASKED TO COMPLETE A SKIN ASSESEMENT. PT. IS WELL KNOWN TO THE WOUND CARE TEAM. PT. HAS NO OPEN WOUNDS AT THIS TIME. PT. HAS AN FUNGAL RASH WITH EXCORATION TO HIS CHRISTAL-AREA AND BUTTOCK. RECOMMENDATIONS: APPLY ANTIFUNGAL MOISTURE BARRIER CREAM, LEAVE OPEN TO AIR, COMPLETE DAILY AND PRN PRESSURE ULCER PREVENTION MEASURES. PT. AND STAFF NURSE WERE INSTRUCTED ON PLAN OF CARE.
[2018-09-21 16:03] VITALS: BP 117/76
--- NOTE | 2018-09-21 18:25 | NUR ---
ASSUMED CARE OF PT AT SHIFT CHANGE. ASSESSMENTS CHARTED. MEDS GIVEN PER JUL. PT ALERT AND ORIENTED, VSS, NO C/O PAIN. O2 SATS WNL ON 2L O2 NC, PT BECAME SOB WHEN TURNING AND CHANGING PT PADS, RECOVERED QUICKLY WITH REST AND REPOSITIONING. TUBE FEEDS CONTINUE AT 60ML/HR, PT TOLERATING WELL. WOUND CARE COMPLETED ON PT, PICTURES TAKEN. PT WORKED WITH PT TODAY, TOLERATED WELL. PT DENIES CONCERNS AT THIS TIME. CONTINUING TO MONITOR AND FOLLOW POC.
[2018-09-21 19:26] VITALS: BP 108/75
[2018-09-22] MEDS ORDERED: XARELTO10 MG PO (00:52)
[2018-09-22] MEDS ORDERED: IPRAT-ALBUT 0.5-3 ML INH (00:52)
[2018-09-22] MEDS ORDERED: PACERONE 200 M200 M1 PER TUBE (00:53)
[2018-09-22] MEDS ORDERED: ATORVASTATIN CA10 MG PO (00:54)
[2018-09-22] MEDS ORDERED: METOPROLOL SUCC25 M1 PO (00:55)
[2018-09-22] MEDS ORDERED: ACETAMINOPHEN650 MG RECTAL (00:56)
[2018-09-22] MEDS ORDERED: CARBIDOPA-LEVO1 EA11 PO (00:56)
[2018-09-22] MEDS ORDERED: LASIX 40 MG TAB40 M1 PER TUBE (00:57)
[2018-09-22] MEDS ORDERED: FLUSH IV (00:57)
[2018-09-22] MEDS ORDERED: LATANOPROST2.5 ML OPHTHALMIC (00:59)
[2018-09-22] MEDS ORDERED: MAGNESIUM400 MG PO (01:00)
[2018-09-22] MEDS ORDERED: ONDANSETRON HCL4 M2 PER TUBE (01:00)
[2018-09-22] MEDS ORDERED: OMEPRAZOLE 20 M20 M1 PER TUBE (01:01)
[2018-09-22] MEDS ORDERED: NYAMYC15 GM TOP (01:01)
[2018-09-22] MEDS ORDERED: MELATONIN5 M1 PO (01:02)
[2018-09-22] MEDS ORDERED: WATER10 ML INJECTION (01:03)
[2018-09-22 05:10] VITALS: BP 107/68
--- NOTE | 2018-09-22 05:14 | NUR ---
ASSUMED PT CARE AT 1900 WITH NO SIGN OF DISTRESS NOTED IN PT.PT IS SLEEPING IN BED. PT IS STABLE. SCHEDULED MEDS ADMINISTERED TO PT THROUGH PEG TUBE. VITAL SIGNS STABLE. PT IS SEEN BY PHYSICIAN. DENIES ANY NNEDS AT THIS TIME. PT IS TOLERATING TUBE FEEDING. CONTINUE NURSING POC
[2018-09-22 06:40] LABS: HEMATOCRIT 23.2 % (42.0-52.0); HEMOGLOBIN 7.7 gm/dL (14.0-18.0); MCH 28.5 pg (26.0-34.0); MCHC 33.1 g/dL (28.0-37.0); MCV 86.3 fL (80.0-100.0); RBC 2.7 mil/uL (4.50-6.00); RDW 16.2 % (10.5-14.5); WBC 6.2 thou/uL (4.0-11.0)
[2018-09-22 06:52] LABS: CALCIUM 9.6 mg/dL (8.5-10.1); CREATININE 1.7 mg/dL (0.7-1.3); POTASSIUM 4.1 mmol/L (3.5-5.1)
[2018-09-22 07:15] VITALS: BP 95/73
--- NOTE | 2018-09-22 08:56 | HC ---
[facility] [place] [address] CONSULTATION Name: KYE NEELY Michael Room #: 210-P [facility] [place] ..#: [id number] Admission: 09/05/18 ������������������ Attend Phys: Arnulfo Grijalva MD Discharge: ������������������ Date of : 34 Report #: [id number] THIS REPORT FOR: //name// CC: Arnulfo Grijalva DATE OF SERVICE: 09/21/2018 CHIEF COMPLAINT: Gluteal ulceration. HISTORY OF PRESENT ILLNESS: This is an 88-year-old male patient with whom I am familiar from recent hospitalization. The patient has been hospitalized intermittently since July of this year. He presented with left lower extremity pain, had some redness of his lower legs and some gluteal ulceration. We saw him with regard to wound care and things did resolve. We have been asked to see him again with regard to an area of gluteal ulceration. PAST MEDICAL HISTORY: Positive for melanoma. It was previously excised. He apparently developed postoperative infection, necrotizing fasciitis, has a history of cardiomyopathy, paroxysmal atrial fibrillation, hyperlipidemia, benign prostatic hypertrophy, and has a history of needing self-catheterization at home. ALLERGIES: None. MEDICATIONS: Acetaminophen, human albumin, ipratropium, albuterol, Pacerone, atorvastatin, carbidopa/levodopa, diphenhydramine, fentanyl, Lasix, latanoprost, Mag-Ox, magnesium sulfate, melatonin, metoprolol, nystatin, ondansetron, Protonix, Xarelto. The patient is awake, alert. He is slow to answer questions. PAST MEDICAL HISTORY: Once again positive for acute respiratory failure, COPD, acute hemorrhage, GI hemorrhage. SOCIAL HISTORY: Negative for alcohol or tobacco. FAMILY HISTORY: Noncontributory. REVIEW OF SYSTEMS: Very limited, other than that mentioned in the history of present illness due to patient's limited ability to answer questions today. PHYSICAL EXAMINATION: VITAL SIGNS: At this time include temperature 36.1, pulse 86, respiration 18, blood pressure 99/50. GENERAL: This is a chronically ill-appearing male. HEENT: Normocephalic. [facility] [address] [place] [address] CONSULTATION Name: KYE NEELY Room #: 210-P [facility] [place] M.R.#: [id number] Admission: 09/05/18 ������������������ Attend Phys: Arnulfo Grijalva MD Discharge: ������������������ Date of : 32 Report #: [id number] NECK: Supple. LUNGS: Diminished. HEART: Irregular. ABDOMEN: Soft. EXTREMITIES: Demonstrates some 2+ edema, few areas of slight erythema. No evidence of cellulitis, infection or ulceration. Gluteal region demonstrates, the skin is intact. There is a small erythematous, almost violaceous appearing patch of the right buttock once again nothing is open. IMPRESSION: 1. History of sacral gluteal pressure ulcerations remains closed. 2. Gluteal dermatitis, possibly fungal/yeast in origin. 3. Acute respiratory failure. 4. Recent aspiration. 5. Chronic obstructive pulmonary disease. 6. History of GI bleeding. 7. Coronary artery disease and cardiomyopathy. 8. Advanced Parkinson's disease. RECOMMENDATIONS: At this point in time, the patient will place low-air mattress, keep alternating the positioning. We will recommend an antifungal moisture barrier cream to the gluteal region twice daily and as needed. We will continue to follow him periodically here in the hospital. I appreciate being asked to see him again in consultation. ��������������������������������������������� <ELECTRONICALLY SIGNED> ���������������������������������������� By: Braydon Rivera MD ��������������������������������������������� 09/22/18 0856 [id number] Braydon Rivera MD /nt
[2018-09-22 09:22] VITALS: BP 95/73
--- NOTE | 2018-09-22 11:02 | NUR ---
ASSUMED CARE OF PT AT SHIFT CHANGE. ASSESSMENT CHARTED. MEDS GIVEN PER JUL. PT ALERT AND ORIENTED, VSS, BP SLIGHTLY LOW, PROVIDER AWARE, NO NEW ORDERS. C/O SORENESS IN ABDOMEN AREA, DID NOT WANT PAIN MEDICATION. TUBE FEEDS CONTINUE AT 60/HR, TOLERATING WELL. PT C/O FEELING BLOATED, TUBE FEEDS STOPPED TEMPORARILY, PT STATED HE FEELS IT IS JUST GAS. TUBE FEEDS CONTINUED. DC ORDERS TO 5N ACKNOWLEDGED AND IMPLEMENTED, PT DC'D FROM UNIT AT APPROX 1015 BY NURSE STAFF TO ROOM 512. FAMILY WAS CALLED AND UPDATED ON WHERE PT WILL BE. TELE REMOVED ON 5N AND TAKEN BACK TO UNIT.
--- NOTE | 2018-09-22 12:05 | NUR ---
pt dc'd to 5N this morning. pt and family aware of dc plan and agreeable.
--- NOTE | 2018-09-27 07:59 | D ---
[facility] [place] [address] DISCHARGE SUMMARY Name: KYE NEELY Michael Room #: 210-P [facility]..#: [id number] Admission: 09/05/18 ������������������ Attend Phys: Arnulfo Grijalva MD Discharge: 09/22/18 ������������������ Date of : 32 Report #: [id number] THIS REPORT FOR: //name// CC: FERNANDEZ Mitchell MD [facility] Ashok Grijalva MD DATE OF SERVICE: 09/22/2018 HOSPITAL COURSE: The patient is an 88-year-old white male who presented with nausea and vomiting and hypotension at the Emergency Room at [facility]. He was unable to keep liquids down and was seen by Dr. Grijalva and advised to be admitted because of his dehydration. His initial diagnosis was acute cystitis with nausea and vomiting secondary to that. He also has a history of hypertension; Parkinson disease; hyperlipidemia; chronic urinary retention, requiring self-catheterization; remote history of melanoma and atrial fibrillation, for which he was anticoagulated with Xarelto. He has also had problems with cellulitis in the recent medical past. He was seen in consultation during this hospital stay by Dr. Ashok Gutierrez from Infectious Diseases and by Gastroenterology with Dr. Jarrell because of concerns of oropharyngeal dysphagia. GI elected to put in a PEG tube. Video swallow was done on 09/06/2018, confirming a diagnosis of aspiration. The patient was placed on a mechanical soft diet with honey-thickened liquids. He underwent EGD on 09/08/2018 and the impression was mild duodenitis of the bulb, patchy gastric erythema and a normal-appearing esophagus. Thick retained secretions in the entire esophagus were removed endoscopically, consistent with an esophageal motility disorder. Given the unusual anatomy, it was recommended that Interventional Radiology place the feeding tube so as to be able to confirm anatomic location with greater specificity to quote the EGD note " there was no access point for the PEG tube, other than just beneath the xiphoid process - unacceptable location for PEG tube". During the G-tube placement procedure in the Interventional Radiology, the patient began having GI bleeding and emergency surgical consult was held with Dr. Kayy Metzger, who took the patient to the operating room on 09/09/2018. His postoperative diagnosis is intra-abdominal hemorrhage from attempted percutaneous G-tube placement, gastroepiploic artery hemorrhage. The procedure that was performed was an exploratory laparotomy with irrigation, control of the [address] [address] DISCHARGE SUMMARY Name: KYE NEELY Room #: 210-P [facility] IN M.R.#: [id number] Admission: 09/05/18 ������������������ Attend Phys: Arnulfo Grijalva MD Discharge: 09/22/18 ������������������ Date of : 32 Report #: [id number] intra-abdominal hemorrhage, closure of gastrostomy and placement of ABThera open abdomen wound vacuum. Although the estimated blood loss from that procedure was only 20 mL, the specimen removed showed 3 liters of intra-abdominal blood with clots. The patient went to the ICU after that. The patient suffered a code blue in Interventional Radiology at the time of having the percutaneous G-tube placement. He was managed there until he was able to be moved to Surgery by the radiologist, Dr. Pfeiffer and nuclear equipment operator Dr. Tao and the Emergency Room physician, Dr. Kale Burton. He was also seen by Dr. Jarrell' partner, Dr. Jasmine, although I attempted to stabilize the patient prior to surgery. There is a second note from Dr. Burton, suggesting a second code blue attempt and when he arrived, the patient was intubated and the code was being read by the Anesthesiology Department. The patient had lost a pulse and was hypotensive and Dr. Burton went to the Blood Bank to ask for massive transfusion protocol and get several units of uncrossmatched O negative blood. Pulse was reestablished, CPR discontinued and the patient was taken to the operating room. Per the radiologist's note, in his postoperative discussion with Dr. 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 Because of the unusual anatomy, G-tube access was more inferiorly and posteriorly located along the greater curvature and the gastroepiploic artery was exposed anteriorly and was the most likely source of the bleeding. After surgery, the patient went to the ICU. He was also being followed by Cardiology at this point. He had either nonsustained ventricular tachycardia during his code blue event or he may have had atrial fibrillation with rapid ventricular response, contributing to his sudden decompensation. Infectious Diseases consulted, changed antibiotics to Zosyn since the E. coli that was cultured was resistant to ceftriaxone. The patient remained on amiodarone per protocol, while he was unable to take anything by mouth. On 09/11/2018, the patient underwent a second-look laparotomy with washout, Ovidio gastrostomy tube placement and abdominal wall closure, without complications, with minimal blood loss. On 09/14/2018, the patient had been extubated, but subsequent to that, developed increasing respiratory distress and was unable to cough up sputum and eventually required repeat intubation for a COPD exacerbation. Sadly, the G-tube dislodged overnight while the patient was turning and required to be replaced yet again on 09/20/2018. Subsequent to that tube placement, he was able to tolerate tube feedings and the rate was gradually increased up to 60 mL per hour. The patient's COPD exacerbation gradually resolved and he coughed up numerous mucus plugs and was able to breathe much easier after the second extubation. Although the patient was maintained with intravenous albumin, he had significant problems with anasarca and needed some diuretic therapy on a daily basis, but is expected to resolve that with simply continuing improving nutrition and recovery from the stress of the aforementioned events around this hospitalization. [facility] [address] [place] [address] DISCHARGE SUMMARY Name: CHINKYE Michael Room #: 210-P [facility] IN [facility].#: [id number] Admission: 09/05/18 ������������������ Attend Phys: Arnulfo Grijalva MD Discharge: 09/22/18 ������������������ Date of : 32 Report #: [id number] Eventually, he came off all antibiotics and was evaluated for his rehabilitation needs by Dr. Fernandez Odom, who suggested that the patient might be able to come to the [address] [place] [address] Inpatient Rehabilitation Unit. Both the patient and family were agreeable to this approach and arrangements are being made at the time of discharge for the patient to go to [address] [place] [address] from his acute care bed in the CCU. DISCHARGE DIAGNOSES: As follows: 1. Obstructed hiatal hernia. 2. Dehydration. 3. Intractable vomiting. 4. Gastroepiploic artery hemorrhage. 5. Code blue x 2. 6. Nonsustained ventricular tachycardia. 7. Chronic atrial fibrillation. 8. Hypertension. 9. Anasarca. 10. Severe malnutrition. 11. Chronic obstructive pulmonary disease exacerbation with respiratory failure. 12. Hemorrhagic shock. 13. Coronary artery disease with moderate cardiomyopathy. 14. Severe generalized debility due to all of the aforementioned problems. 15. Acute blood loss anemia, ultimately requiring 1 unit of packed red blood cells transfusion. DISCHARGE MEDICATIONS: Will be as follows: 1. Potassium chloride 20 mEq daily. 2. DuoNebs 3 mL q.i.d. per nebulizer. 3. Xarelto 20 mg daily at dinner. 4. Amiodarone 400 mg per PEG daily. 5. Atorvastatin 10 mg daily (oral medications to be crushed and given through the PEG tube). 6. Metoprolol succinate XL 25 mg should be converted to metoprolol tartrate 12.5 mg per PEG b.i.d. 7. Acetaminophen 650 mg q. 4 hours p.r.n. pain or fever per rectum or by tube. 8. Sinemet 10/100 one tablet by mouth 3 times a day. 9. Furosemide 40 mg per tube every morning. 10. Latanoprost eyedrops for glaucoma, one drop in each eye. 11. Magnesium oxide 400 mg by mouth every morning. 12. Ondansetron 4 mg per tube q. 4 hours p.r.n. nausea and vomiting. 13. Omeprazole 40 mg by mouth daily. 14. Nystatin 15 grams of the powder to the affected areas of the abdominal skin [address] [address] DISCHARGE SUMMARY Name: CHINKYE L Room #: 210-P [facility] IN [facility].#: [id number] Admission: 09/05/18 ������������������ Attend Phys: Arnulfo Grijalva MD Discharge: 09/22/18 ������������������ Date of : 32 Report #: [id number] t.i.d. 15. Melatonin 5 mg per PEG at bedtime. ��������������������������������������������� <ELECTRONICALLY SIGNED> ���������������������������������������� By: Raza Muller MD ��������������������������������������������� 09/27/18 0759 0840 1424 Raza Muller MD /nt
== END 2018-09-22 10:15 | DRG 981 ==
LOC: ER 12:31 → EROBS 14:39 → 3W 14:39 → ICU 09-09 13:52 → 2N 09-20 16:36
PROVIDERS: Emergency Medicine; Internal Medicine; Internal Medicine Cardiovascular Disease; Internal Medicine Pulmonary Disease; Nurse Practitioner; Pediatrics; Radiology Diagnostic Radiology; Radiology Vascular & Interventional Radiology; Student in an Organized Health Care Education/Training Program; ADMIT Internal Medicine
PROC: 0DJ08ZZ Inspection of Upper Intestinal Tract, Via Natural or Artificial Opening Endoscopic (ICD-10-PCS; 2018-09-08)
PROC: 30233N1 Transfusion of Nonautologous Red Blood Cells into Peripheral Vein, Percutaneous Approach (ICD-10-PCS; 2018-09-09)
PROC: 04Q Lower Arteries, Repair (ICD-10-PCS; 2018-09-09)
PROC: 0DH63UZ Insertion of Feeding Device into Stomach, Percutaneous Approach (ICD-10-PCS; 2018-09-09)
PROC: 0W9G0ZZ Drainage of Peritoneal Cavity, Open Approach (ICD-10-PCS; 2018-09-09)
PROC: 30233K1 Transfusion of Nonautologous Frozen Plasma into Peripheral Vein, Percutaneous Approach (ICD-10-PCS; 2018-09-09)
PROC: 5A1955Z Respiratory Ventilation, Greater than 96 Consecutive Hours (ICD-10-PCS; 2018-09-09)
PROC: 0BH17EZ Insertion of Endotracheal Airway into Trachea, Via Natural or Artificial Opening (ICD-10-PCS; 2018-09-09)
PROC: 30233M1 Transfusion of Nonautologous Plasma Cryoprecipitate into Peripheral Vein, Percutaneous Approach (ICD-10-PCS; 2018-09-09)
PROC: 02HV33Z Insertion of Infusion Device into Superior Vena Cava, Percutaneous Approach (ICD-10-PCS; 2018-09-10)
PROC: 0W3P0ZZ Control Bleeding in Gastrointestinal Tract, Open Approach (ICD-10-PCS; principal; 2018-09-11)
PROC: 5A09357 Assistance with Respiratory Ventilation, Less than 24 Consecutive Hours, Continuous Positive Airway Pressure (ICD-10-PCS; 2018-09-14)
PROC: 0DJ63ZZ Inspection of Stomach, Percutaneous Approach (ICD-10-PCS; 2018-09-15)
PROC: 5A09357 Assistance with Respiratory Ventilation, Less than 24 Consecutive Hours, Continuous Positive Airway Pressure (ICD-10-PCS; 2018-09-15)
PROC: 5A09357 Assistance with Respiratory Ventilation, Less than 24 Consecutive Hours, Continuous Positive Airway Pressure (ICD-10-PCS; 2018-09-16)
PROC: 5A09357 Assistance with Respiratory Ventilation, Less than 24 Consecutive Hours, Continuous Positive Airway Pressure (ICD-10-PCS; 2018-09-17)
PROC: 0DH63UZ Insertion of Feeding Device into Stomach, Percutaneous Approach (ICD-10-PCS; 2018-09-19)
DX: J69.0 Pneumonitis due to inhalation of food and vomit (principal); J96.00 Acute respiratory failure, unspecified whether with hypoxia or hypercapnia; E43 Unspecified severe protein-calorie malnutrition; R57.8 Other shock; I46.9 Cardiac arrest, cause unspecified; N30.00 Acute cystitis without hematuria; N17.9 Acute kidney failure, unspecified; K44.0 Diaphragmatic hernia with obstruction, without gangrene; I47.2 Ventricular tachycardia; D62 Acute posthemorrhagic anemia; E87.0 Hyperosmolality and hypernatremia; I42.8 Other cardiomyopathies; G72.81 Critical illness myopathy; I13.0 Hypertensive heart and chronic kidney disease with heart failure and stage 1 through stage 4 chronic kidney disease, or unspecified chronic kidney disease; E78.00 Pure hypercholesterolemia, unspecified; K94.21 Gastrostomy hemorrhage; E86.0 Dehydration; N18.9 Chronic kidney disease, unspecified; E78.5 Hyperlipidemia, unspecified; D69.6 Thrombocytopenia, unspecified; R13.10 Dysphagia, unspecified; I48.0 Paroxysmal atrial fibrillation; L30.8 Other specified dermatitis; J44.9 Chronic obstructive pulmonary disease, unspecified; I25.10 Atherosclerotic heart disease of native coronary artery without angina pectoris; G20 Parkinson's disease; I95.1 Orthostatic hypotension; N31.9 Neuromuscular dysfunction of bladder, unspecified; Z66 Do not resuscitate; N40.1 Benign prostatic hyperplasia with lower urinary tract symptoms; R33.8 Other retention of urine; E86.9 Volume depletion, unspecified; I65.29 Occlusion and stenosis of unspecified carotid artery; B96.20 Unspecified Escherichia coli [E. coli] as the cause of diseases classified elsewhere; Z87.891 Personal history of nicotine dependence; Z68.31 Body mass index [BMI] 31.0-31.9, adult; K22.4 Dyskinesia of esophagus; E83.42 Hypomagnesemia; E87.6 Hypokalemia; I50.9 Heart failure, unspecified
CPT/HCPCS: 10078; 10081; 10879; 48888; 50011; 50093; 50101; 50386; 50417; 50820; 50953; 51412; 53358; 56525; 56526; 56527; 56528; 56530; 57092; 57103; 57114; 62110; 62900; 65020; 65040; 65090; 65120; 70005; 83006

== ENCOUNTER 2018-09-22 08:55 | Inpatient (IN) | payer OTHER, MEDICARE ==
[~2018-09-22] VITALS: Ht 185.4 cm; Wt 89.8 kg
[~2018-09-22 08:55] MED LIST changes: +ACETAMINOPHEN650 MG RECTAL; +ATORVASTATIN CA10 MG PO; +DEMADEX20 MG PO; +FLUSH IV; +IPRAT-ALBUT 0.5-3 ML INH; +LASIX 40 MG TAB40 M1 PER TUBE; +LATANOPROST2.5 ML OPHTHALMIC; +LIPITOR10 MG PO; +LUMIGAN2.5 M1 OPHTHALMIC; +METOPROLOL SUCC25 M1 PO; +NYAMYC15 GM TOP; +OMEPRAZOLE 20 M20 M1 PER TUBE; +ONDANSETRON HCL4 M2 PER TUBE; +PACERONE 200 M200 M1 PER TUBE; +POTASSIUM20 PO; +WATER10 ML INJECTION; +XARELTO10 MG PO
--- NOTE | 2018-09-22 11:48 | NUR ---
pt new to acute rehab today. pt been here on rehab before. pt up in recliner working with ot. cm visited with maurice , son nichole and daughter in law . into to cm, transition of care, home health and team meetings. pt stated " ok"/adamaris. per pt, and family " live home with , no stair, have cane and walker that use. have [facility] and i remember you"/adamaris and family. noted pt on o2 2lNC and upper ext shakiness more on right side. no co or concerns voiced. will cont following as needed for dc needs.
--- NOTE | 2018-09-22 12:13 | NUR ---
Need for bolus TF for rehab admission. Recommend one can Jevity 1.5 q4hr with 150 mL water flush after each bolus feed. Will provide 2133 kcal, 90 grams protein to meet 101% kcal needs and 105% protein needs.
[2018-09-22 15:05] LABS: HEMATOCRIT 25.1 % (42.0-52.0); HEMOGLOBIN 8.3 gm/dL (14.0-18.0)
--- NOTE | 2018-09-22 16:05 | NUR ---
PT WAS TX TO REHAB WITH R SC CENTRAL LINE, ORDER OBTAINED TO DC LINE. PT IN BED SUTURES REMOVED, 20CM ARROW CATH INTACT AND REMOVED. PRESSURE HELD 5 MINUTES. STERILE OCCLUSIVE DRG APPLIED.
--- NOTE | 2018-09-22 16:20 | NUR ---
ASSUMED CARE AT APPROX 1015. PATIENT AWAKE. ORIENTED. REPORTED FEELING TIRED AND "WOBBLY." PATIENT ASSISTED TO RECLINER WITH 2 STAFF. THERAPISTS AND PROVIDER NOTIFIED, PATIENT'S THERAPY COMPLETED WHILE IN RECLINER OR BED. PICC LINE REMOVED PER ORDERS. LABS REVIEWED, HGB UP TO 8.3. NEW ORDERS FOR TUBE FEEDING AND FLUSHES RECEIVED. WOUND CARE ORDERS FOR BUTTOCKS RECEIVED. DRESSING TO MIDLINE INCISION C/D/I. PEG TUBE PATENT, FEEDINGS ADMINISTERED PER FARO DEALER ORDERS. VSS. ACCUCHECKS QID. FALL PRECAUTIONS IN PLACE. DPOA PAPERWORK ON CHART. PATIENT ROUNDED ON HOURLY. WILL CONTINUE TO MONITOR.
[2018-09-22 20:32] VITALS: BP 103/55
[2018-09-23] VITALS: BP 110/72
--- NOTE | 2018-09-23 03:56 | NUR ---
PT ASSESSMENT COMPLETED AND VSS. MEDS GIVEN ORDERED AND WELL TOLERATED THROGH THE PEG TUBE. FALL PRECAUTIONS IN PLACE. ASST WITH FREQUENT REPOSITION FOR COMFORT. TURNED WITH PILLOWS AND APPLIED BARRIER CREAM TO PRESSURE WOUND. PEG TUBE FEEDINGS AND FLUSHES CONTINUE ORDERED. 0 RESIDUAL WITH LAST CHECK. NPO. MOUTH CARE PROVIDED FREQUENTLY. HOB ELEVATED ORDERED. SAT WNL ON NC. PT COUGHING UP THICK MUCUS. YANKER SUCTION PROVIDED FOR COMFORT. SLEEPING. WILL CONTINUE TO MONITOR FREQUENTLY.
[2018-09-23 04:00] VITALS: BP 115/78
[2018-09-23 04:59] LABS: CALCIUM 9.4 mg/dL (8.5-10.1); CREATININE 1.7 mg/dL (0.7-1.3)
[2018-09-23 05:03] LABS: HEMATOCRIT 24.8 % (42.0-52.0); HEMOGLOBIN 8.3 gm/dL (14.0-18.0); MCH 28.8 pg (26.0-34.0); MCHC 33.5 g/dL (28.0-37.0); MCV 85.8 fL (80.0-100.0); RBC 2.89 mil/uL (4.50-6.00); RDW 16.3 % (10.5-14.5); WBC 6.3 thou/uL (4.0-11.0)
[2018-09-23 09:00] VITALS: BP 111/73
--- NOTE | 2018-09-23 10:21 | NUR ---
ASSUMED CARE OF PT AT 0715. PT IS A&OX4. IS ON 2L OF O2/NC. BP THIS AM WAS 111/73 HR 86. PT REPORTED BEING BLOATED AFTER AM FEEDING THIS AM. ALSO, REPORTED NAUSEA & LATER DIZZINESS WITH AMBULATING WITH PHYSICAL THERAPY. PT BP SITTING 86/57(67). PT HAD GREATER THAN 60ML OF RESIDUAL IN PEG TUBE. PT STATED "I THINK I AM GETTING TO MUCH IN MY TUBE. I DON'T FEEL WELL AFTER BEING GIVEN ALL OF THAT FLUID". PT WANTS TO COMMUNICATE WITH DOCTOR REGARDING FEEDINGS. PT IS UP WITH MAX ASSIST X2, GB, WALKER. HAS INCREASED WEAKNESS. FALL PRECAUTIONS & HOURLY ROUNDING CONTINUED THIS SHIFT. PT DENIES PAIN. HAS A WOUND ON BOTTOM & DRSG ON ABD. WOUND CARE FOLLOWING. SKIN TEARS ON BILAT HANDS WITH DRSGS INTACT. LABS & VITALS REVIEWED. PT IS CURRENTLY UP IN RECLINER. SUCTION AT BEDSIDE. CALL LIGHT WITHIN REACH. WILL CONTINUE TO MONITOR.
--- NOTE | 2018-09-23 13:12 | NUR ---
WOUND CONSULT: PT. WAS SEEN TODAY BY DR. RAJPUT AND MYSELF. PT. IS WELL KNOWN TO THE WOUND CARE TEAM. WE HAVE BEEN FOLLOWING THIS PT. ON ACUTE PRIOR TO TRANSFER TO REHAB. PT. HAS INCONTIENT ASSOICATED DERMATITIS WITH A FUNGAL RASH NOTED TO HIS SACRUM ALONG WITH SKIN TEARS TO HIS LEFT ARM AND RIGHT HAND. NONE OF THE WOUNDS SHOW ANY SIGNS OF INFECTION AND ALL ARE HEALING WELL. RECOMMENDATIONS: WOUND CARE TO LEFT ARM AND RIGHT HAND: GENTLY CLEANSE WITH WOUND CLEANSER OR NORMAL SALINE, COVER WITH OPTIFOAM BORDER, COMPLETE CARES M/W/F AND PRN SOILAGE. WOUND CARE TO SACRUM: GENTLY CLEANSE AREA WITH WOUND CLEANSER OR NORMAL SALINE, APPLY ANTIFUNGAL MOISTURE BARRIER CREAM, LEAVE OPEN TO AIR, COMPLETE CARES DAILY AND PRN. PT. AND STAFF NURSE WERE INSTRUCTED ON PLAN OF CARE.
[2018-09-23 19:46] VITALS: BP 118/78
--- NOTE | 2018-09-24 04:36 | NUR ---
ASSUMED CARE AT START OF SHIFT PT VERY DRAOWSY AT THAT TIME . PT AWAKEN AROUND 2400 AND C/O OF INSOMMIA PT INCONTINENT OF LOOSE BROWN STOOL , PT TURN EVERY 2 HOURS BED ALARM FOR SAFETY. NO CHANGES NOTED , RESTED WELL THROUGHOUT HOURLY ROUNDS.
[2018-09-24 08:21] VITALS: BP 104/64
--- NOTE | 2018-09-24 19:00 | NUR ---
ASSUMED CARE AT 0700. PT SAID HE HAD GOOD REST LAST NIGHT. WAS ON 2L OF OXYGENG THIS AM. ENCOURAGED PT TO BE UP MORE IN CHAIR TODAY. SAT 100% ON RA. OT GAVE PT'S BATH. PT HAD BM THIS AM. ALERT AND ORIENTED X4. LOOKED DEPRESSED THIS AM. OFFERED SUPPORT AND ENCOURAGEMENT. PT PARTICIPATES WITH OT/PT. FEEDING AT 0800 AND 1400 TODAY. HAD 30CC RESIDUAL. TUBE FEEDING AND FLUSHES RECEIVED. ATTEMPT TO GIVE ANOTHER FEEDING AT 1800. PT REFUSED AND WANT TO WAIT FOR NIGHT MEDS. ENCOURAGED PT TO TURN Q2HR AT NIGHT. LOW AIR MATRESS IN PLACE. SCD IS ON AT THIS MOMENT. . UP IN RECLINER FOR 6 HRS TODAY. UP TO BATHROOM. UP WITH MOD ASSIST AND WALKER. POSADAS CATH INTACT HAD 45OCC RUTHANN URINE THIS SHIFT. DRESSING TO MIDLINE INCISION CHANGED TWICE D/T HAS MILD AMOUNT OF DRAINGE. PEG TUBE PATENT, FEEDINGS ADMINISTERED PER ORDERS. VSS. ACCUCHECKS QID. MEDS GIVEN VIA GTUBE. PT IS IN GOOD SPIRIT, FAMILY CAME TO VISIT TODAY. FALL PRECAUTIONS IN PLACE. PATIENT ROUNDED ON HOURLY. GAVE REPORT TO NIGHT NURSE TO CONTINUE TO MONITOR.
[2018-09-24 20:45] VITALS: BP 107/61
--- NOTE | 2018-09-25 03:03 | NUR ---
ASSUMED CARE AT START OF SHIFT PT PT AWAKE ALERT ORIENTED X4 VISITING WITH FAMILY, PT INCONTNIENT WITH LARGE SOFT STOOL THIS EVENING BARRIER CREAM APPLIED TO BUTTOCK AREA. DENEIS PAIN , PT TURNED EVERY 2 HOURS. DISCUSSED PLAN OF CRE WITH PT AND FAMILY ALL AAGREEABLE AND VERBALIZED UNDERSTANDING.
[2018-09-25 07:40] VITALS: BP 99/62
--- NOTE | 2018-09-25 19:43 | NUR ---
ASSUMED CARE AT APPRPOX 0715. PATIENT A/O X4. DENIES PAIN. EDEMA TO BLE, LEGS ELEVATED IN BED AND AT REST IN RECLINER. CUAUHTEMOC TO DD. PATIENT SATS MAINTAINED ON ROOM AIR, LUNGS CLEAR, CLEAR SPUTUM NOTED WHEN COUGHING. PEG TUBE PATENT, MINIMAL OR NO RESIDUAL PRIOR TO FEEDINGS. TUBE FEEDING ADMINSTERED Q6 HOURS, PATIENT STATES HE FEELS TOO FULL ON Q4H FEEDINGS. 150 ML FLUSH ADMINSTERED WITH FEEDINGS. FALL PRECAUTIONS IN PLACE. PATIENT TRANSFERED BY PT. TO RECLINER. SLOAN MATRESS IN PLACE. SCD'S ON WHILE IN BED. PATIENT CALLS APPROPRIATELY. RESTING IN BED AT CHANGE OF SHIFT.
[2018-09-25 20:48] VITALS: BP 101/51
--- NOTE | 2018-09-26 04:23 | NUR ---
PT ASSESSMENT COMPLETED AND VSS. MEDS GIVEN ORDERED VIA PEGTUBE. 0 RESIDUAL NOTED WITH Q 6 HOUR FEEDINGS. TF/FLUSHES GIVEN ORDERED. ASST WITH FREQUENT REPOSITION FOR COMFORT USING PILLOWS. BARRIER CREAM APPLIED TO PRESSURE WOUND WITH EACH TURN. DSG ON ABD MIDLINE AND PEGTUBE SITE DRY AND INTACT. REFUSED SCDS THIS EVENING. MOUTH CARE PROVIDED. PROVIDED MUCH EMOTIONAL SUPPORT FOR ANXIETY. SLEEPING WELL AT THIS TIME. WILL CONTINUE TO MONITOR FREQUENTLY.
[2018-09-26 08:15] VITALS: BP 104/57
[2018-09-26 09:00] VITALS: BP 107/69
[2018-09-26 09:02] VITALS: BP 74/47
[2018-09-26 09:03] VITALS: BP 118/73
--- NOTE | 2018-09-26 19:21 | NUR ---
ASSUMED CARE AT 0700. REPORTS DIDN'T SLEEP WELL LAST NIGHT. ALERT AND ORIENTED X4, ABLE TO VOICE HIS NEEDS. HAS ORTHOSTATIC THIS AM WHEN WORKING WITH PT. NOTIFIED OBTAINED ORDER FOR REMERON 7.5MG AT HS AND MIDODRINE 5MG TID. PT HAS BEEN UP IN RECLINER AND WALKING WITH PT. OT GAVE SPONGE BATH. PT UP TO BATHROOM HAD LOOSE BM TODAY BUT ABLE TO GET IN BATHROOM ON TIME. OFFERED SUPPORT AND ENCOURAGEMENT. PT PARTICIPATES WITH OT/PT. FEEDING AT 0800, 1400, 1830 TODAY. HAD 30CC RESIDUAL. TUBE FEEDING AND FLUSHES RECEIVED. WOUND NURSE MADE ROUND AND SAID WOUND LOOK BETTER CONTINUE WITH ANTIFUGAL AND TURN Q2HR. PT SAT ON CRUSHION ON RECLINER AND ABLE TO STAND UP IN RECLINER FROM 9AM- 3PM WITH THERAPY AND BATHROOM IN BETWEEN. LOW AIR MATRESS IN PLACE. SCD IS ON AT THIS MOMENT. UP IN RECLINER FOR 6 HRS TODAY. UP TO BATHROOM. UP WITH MOD ASSIST AND WALKER. POSADAS CATH INTACT WITH RUTHANN URINE THIS SHIFT. DRESSING TO MIDLINE INCISION CHANGED TWICE D/T HAS MILD AMOUNT OF DRAINGE. PEG TUBE PATENT, FEEDINGS ADMINISTERED PER ORDERS. VSS. ACCUCHECKS QID. MEDS GIVEN VIA GTUBE. PT FEELS TIRED FOR LACK OF SLEEP TODAY BUT PARTICIPATED WELL WITH THERAPISTS. FAMILY CAME TO VISIT TODAY. FALL PRECAUTIONS IN PLACE. ROUNDED ON HOURLY FOR NEEDS AND SAFETY. GAVE REPORT TO NIGHT NURSE TO CONTINUE TO MONITOR.
--- NOTE | 2018-09-26 19:39 | NUR ---
WOUND FOLLOW UP: PT. WAS SEEN TODAY BY DR. BREEN AND MYSELF. PT. WOUNDS ARE ALL CLINICALLY IMPOROVED AT THIS TIME AND PT. IS IN GOOD SPIRITS. RECOMMENDATIONS: CONTINUE WITH CURRENT PLAN OF CARE. PT. AND STAFF NURSE WERE INSTRUCTED ON PLAN OF CARE.
[2018-09-26 19:45] VITALS: BP 103/86
--- NOTE | 2018-09-27 01:49 | NUR ---
PT ASSESSMENT COMPLETED AND VSS. MEDS GIVEN ORDERED AND WELL TOLERATED. FALL PRECAUTIONS IN PLACE. PT SLEEPING MUCH BETTER TONIGHT AFTER NEW SLEEP MEDICATION ORDERS. PEG TUBE FEEDINGS/FLUSHES CONTINUE ORDERED. 0 RESIDUAL. YANKER SUCTION/MOUTH CARE PROVIDED. ASST WITH FREQUENT REPOSITION. SLEEPING WELL. SAT WNL ON RA. WILL CONTINUE TO MONITOR FREQUENTLY.
[2018-09-27 08:23] VITALS: BP 96/61
--- NOTE | 2018-09-27 12:59 | NUR ---
team meeting, recommendation : will remain npo and no swallowing therapy per pt request. will need tf set up for dc. re team with dc 10/07/18 ( pt, ot ,st, nursing).
--- NOTE | 2018-09-27 13:05 | NUR ---
Nutrition: pt c/o bloating and fullness with tube feeds being administered q 4 hrs. In order to meet needs suggest 2 Milind HN formula of 4 cans/day or q 6 hrs to meet needs. Will require 200 mL H20 flush after each bolus and additional 200 mL H20 flush BID between feedings.
--- NOTE | 2018-09-27 14:44 | NUR ---
ASSUMED CARE AT APPROX 0715. PATIENT A/O X4. DENIES PAIN. UP X1 ASSIST, GB AND WALKER, AMBULATING SHORT DISTANCES WITH PT. RESTING IN RECLINER DURING DAY SHIFT, TOLERATING THIS WITHOUT DROPS IN BLOOD PRESSURE. MEDS ADMINISTERED PER ORDERS. NEW ORDERS RECEIVED FOR TUBE FEEDING FORMULA, PATIENT HAD C/O BLOATING. MOUTH CARE PROVIDED, CHRISTAL-CARE GIVEN WITH ANTI-FUNGAL CREAM APPLIED. POSADAS TO DD, SECURED. DRESSINGS TO ABDOMINAL MIDLINE INCISION CHANGED, GAUZE TO PEG SITE CHANGED. FALL PRECAUTIONS IN PLACE. PATIENT PARTICIPATING IN THERAPY. ROUNDED ON HOURLY. WILL CONTINUE TO MONITOR.
[2018-09-27 18:59] VITALS: BP 102/58
--- NOTE | 2018-09-28 04:37 | NUR ---
TOLERATING TURNS TO SIDE AND APPRECIATES ANTIFUNGAL CREAM TO OPEN SACRAL AREA. FELT BLOATED DURING TUBE FEEDING AND MULTIPLE MEDS, SO FEEDING STOPPED AND REMANIDER GIVEN 90 MINUTES LATER, WHEN PATIENT WAS STILL AWAKE ANYWAY. TURNED TO LEFT SIDE ONE HALF HOUR LATER AND APPEARED TO FALL ASLEEP ANOTHER HALF HOUR AFTER THAT. POSADAS TO DD DRAINING CLEAR YELLOW. WILL LET HIM REST A LITTLE LONGER SINCE HE IS STILL ON HIS LEFT SIDE, BUT NOT IN EXACTLY THE SAME PLACE SINCE HIS MAIN GOAL TONIGHT WAS TO GET SOME SLEEP. WILL MONITOR AND REVIEW.
[2018-09-28 05:10] VITALS: BP 104/76
[2018-09-28 05:27] LABS: HEMATOCRIT 25.8 % (42.0-52.0); HEMOGLOBIN 8.5 gm/dL (14.0-18.0); MCH 28.5 pg (26.0-34.0); MCHC 33.1 g/dL (28.0-37.0); MCV 86.1 fL (80.0-100.0); RDW 16.6 % (10.5-14.5); WBC 6.7 thou/uL (4.0-11.0)
[2018-09-28 05:44] LABS: CALCIUM 9.2 mg/dL (8.5-10.1); CREATININE 1.5 mg/dL (0.7-1.3); POTASSIUM 3.8 mmol/L (3.5-5.1)
[2018-09-28 08:00] VITALS: BP 103/59
[2018-09-28 08:02] VITALS: BP 104/61
[2018-09-28 08:10] VITALS: BP 89/64
--- NOTE | 2018-09-28 12:59 | NUR ---
Nutrition: May consider add 2 packets beneprotein powder BID via water flushes to better meet protein needs.
--- NOTE | 2018-09-28 14:02 | NUR ---
cm received phone call from son emi [phone], my brother keeley and myself will be helping mom and dad, with more assistance that is going to be requested since he had such big scary changes happen. " i do not think he will be able to straight cath him self any more or do this new tube feedings. since he was dx with parkinson things have changed. he is excited to have date to look forward to coming home with mom, how and what need to be set up for him come home. is he going to need private duty, and is hospice an option ?/don. education on dme provided for TF, senior blue book, hh list choices, private duty medical and nonmedical. referred to def of hospice from senior blue book. " it is ok to send information on tf to [facility] and he might need to go home with willard lund is fine for hh as well."/son. education on family training for tf and abernathy cath care. will cont following as needed for dc needs. passed on information to bedside nurse.
--- NOTE | 2018-09-28 18:54 | NUR ---
ASSUMED CARE AT APPROX 0715. PATIENT A/O X4. DENIES PAIN. PEG TUBE PATENT, TUBE FEEDINGS AND FLUSHES ADMINISTERED PER ORDERS, PATIENT TOLERATES THIS BETTER THAN Q4H FEEDING PER PATIENT. PARTICIPATED IN THERAPY. WOUND CARE PER ORDERS, WOUND PHOTOS OBTAINED. COMPLETED PEG TUBE FEEDING TRAINING WITH PATIENT'S SON. FALL PRECAUTIONS IN PLACE. PATIENT CUED TO TURN Q2 WHILE IN BED. TALIA HOSE IN PLACE. RESTING IN BED AT CHANGE OF SHIFT.
[2018-09-28 19:37] VITALS: BP 101/65
--- NOTE | 2018-09-29 01:26 | NUR ---
PT ALERT AND ORIENTED X 4. POSADAS PATENT DRAINING ADEQUATE AMTS YELLOW URINE. 2+ LE EDEMA BILAT. ABDOMINAL DRESSINGS C/D/I. PT REFUSED TO HAVE DRESSINGS CHANGED AT HS. PT ALSO REFUSED TO BE AWAKENED FOR MIDNIGHT TUBE FEEDING, ACCUCHECK AND TURNS. ATIVAN AND MELATONIN GIVEN AT HS PER PT REQUEST FOR SLEEP. PT DENIES PAIN OR DISCOMFORT. BED ALARM ON FOR SAFETY. PT APPEARS TO BE SLEEPING ON HOURLY ROUNDS.
[2018-09-29 08:40] VITALS: BP 97/67
--- NOTE | 2018-09-29 10:18 | NUR ---
FAXED REFERRAL TO [facility] FOR TUBE FEEDING FOR HOME LEFT MSG WITH NIK THAT PT. IS NEW WITH TUBE FEEDING AND FAMILY WILL NEED TEACHING. ANTICIPATE DC 10/07 DCP TO FOLLOW.
[2018-09-29 10:54] VITALS: BP 109/65
--- NOTE | 2018-09-29 16:38 | NUR ---
ASSUMED CARE AT 0700. REPORTS HAD BEST SLEEP LAST NIGHT AFTER TAKING ATIVAN. PT WANTS TO BE SCHEDULE. CALLED AND NOTIFIED DR. JOHNSON WHO WANTS TO KEEP ATIVAN PRN AT THIS MOMENT. ENCOURAGED PT TO LET NIGHT RN KNOW WHEN HE NEEDS IT. ALERT AND ORIENTED X4, ABLE TO VOICE HIS NEEDS. HAS ORTHOSTATIC THIS AM WHEN WORKING WITH PT. CONTINUE TO BE ON MIDODRINE SCHEDULE TID. SINCE PT HAD GOOD SLEEP LAST NIGHT. HE DID WELL FOR PT/ST/OT TODAY. PT HAS BEEN UP IN RECLINER AND WALKING WITH PT. PEG TUBE PATENT AND INTACT. HAS NO RESIDUAL FEEDING AND FLUSHES RECEIVED. BUTTOCKS WOUND LOOK BETTER CONTINUE WITH ANTIFUGAL AND TURN Q2HR. PT SAT ON CRUSHION ON RECLINER AND ABLE TO STAND UP IN RECLINER LOW AIR MATRESS IN PLACE. MIN ASSIST AND WALKER. POSADAS CATH INTACT WITH RUTHANN URINE THIS SHIFT. DRESSING TO MIDLINE INCISION C/D/I PEG TUBE PATENT, FEEDINGS ADMINISTERED PER ORDERS. VSS. ACCUCHECKS QID. MEDS GIVEN VIA GTUBE. FAMILY CAME TO VISIT TODAY. PT IS IN GOOD SPIRIT. FALL PRECAUTIONS IN PLACE. ROUNDED ON HOURLY FOR NEEDS AND SAFETY.
[2018-09-29 20:12] VITALS: BP 104/66
--- NOTE | 2018-09-30 02:05 | NUR ---
PT ALERT AND ORIENTED X 4. POSADAS PATENT DRAINING CLEAR DARK YELLOW URINE. PEG TUBE PATENT. ANN-MARIE FEEDINGS WELL. NO RESIDUALS NOTED. ABD DRESSINGS C/D/I. ATIVAN GIVEN AT HS PER PT REQUEST FOR SLEEP. PT DENIES PAIN OR DISCOMFORT. BED ALARM ON FOR SAFETY. PT APPEARS TO BE SLEEPING ON HOURLY ROUNDS.
[2018-09-30 07:30] VITALS: BP 105/81
--- NOTE | 2018-09-30 10:15 | NUR ---
cm returned pc to son emi, had question on if chcs had pd, tube feeding education, wanting to have someone who can help with tf in home because allot for mom to day and if i am at work there will be some time when help is needed."/don. per ja tf and supplies covered at 100%. referred to senior blue book for pd for support tf. bedside nurse will education here and hh and pd will cont with education and support in home. will cont following as needed for dc needs.
--- NOTE | 2018-09-30 12:12 | NUR ---
I have reviewed the documentation by ASHIA MARTINEZ from 09/30/18 to 09/30/18 and I concur with it. ANNA WELLS
--- NOTE | 2018-09-30 13:14 | NUR ---
WOUND FOLLOW UP: PT. WAS SEEN TODAY BY DR. BREEN AND MYSELF. PT. WOUNDS ARE ALL CLINICALLY BETTER AT THIS TIME. RECOMMENDATIONS: CONTINUE WITH CURRENT PLAN OF CARE. PT. AND STAFF NURSE WERE INSTRUCTED ON PLAN OF CARE.
--- NOTE | 2018-09-30 18:41 | NUR ---
ASSUMED CARE AT 0700. REPORTS SLEEP WAS INTERRUPTED AFTER FEEDING LAST NIGHT. PT DOESN'T WANT TO TAKE FEEDING AT NIGHT SO RECEIVED ORDER TO CHANGE FEEDING TIME TO 5AM, 11AM, 4PM AND 9PM. PT WANTS TO TAKE PRN ATIVAN TONIGHT. ALERT AND ORIENTED X4, ABLE TO VOICE HIS NEEDS. PT UP IN RECLINER, TIRED AND SLEEPY BUT PARTICIPATED WITH PT/ST/OT TODAY. PEG TUBE PATENT AND INTACT. HAS NO RESIDUAL FEEDING AND FLUSHES RECEIVED. BUTTOCKS WOUND LOOK BETTER CONTINUE WITH ANTIFUGAL AND TURN Q2HR. PT SAT ON CRUSHION ON RECLINER AND ABLE TO STAND UP IN RECLINER LOW AIR MATRESS IN PLACE. MIN ASSIST AND WALKER. POSADAS CATH INTACT WITH RUTHANN URINE THIS SHIFT. OT GAVE PT SHOWER TODAY. DRESSING TO MIDLINE INCISION CHANGED, PEG TUBE PATENT, FEEDINGS ADMINISTERED PER ORDERS. VSS. ACCUCHECKS QID. MEDS GIVEN VIA GTUBE. FAMILY CAME TO VISIT TODAY. PT IS RESTING IN BED AT THIS MOMENT. FALL PRECAUTIONS IN PLACE. WILL GIVE REPORT TO NIGHT NURSE TO CONTINUE TO MONITOR. ROUNDED ON HOURLY FOR NEEDS AND SAFETY.
[2018-09-30 20:06] VITALS: BP 98/64
[2018-09-30 21:23] VITALS: BP 118/74
--- NOTE | 2018-10-01 00:23 | NUR ---
PT ASSESSMENT COMPLETED AND VSS. MEDS GIVEN ORDERED AND WELL TOLERATED. FALL PRECAUTIONS IN PLACE. ASST WITH FREQUENT REPOSITION FOR COMFORT. TF RESIDUAL CHECKS, FEEDING, AND FLUSHES CONTINUE ORDERED. 0 RESIDUAL SO FAR THIS EVENING. FUNGAL BARRIER CREAM APPLIED TO BUTTOCK/COCCYX. POSADAS DRAINING DARK YELLOW URINE. SLEEPING WELL. WILL CONTINUE TO MONITOR FREQUENTLY.
[2018-10-01 09:01] VITALS: BP 105/68
--- NOTE | 2018-10-01 10:00 | NUR ---
ASSUMED CARE AT 0700. PATIENT IS ALERT AND ORIENTED X4. PATIENT CABRERA'S, GRADUATE ENGINEER ARE STRONG. UP WITH WALKER AND GAIT BELT TO RECLINER. PATIENT LUNGS ARE CLEAR. ABD IS SOFT WITH BSX4. PATIENT HAS G.T. THAT IS INTACT. NEXT GT FEEDING IS AT 11:00. PATIENT REMAINS NPO. PATIENT HAS POSADAS CATHETER TO DD, DRAINING RUTHANN COLORED URINE. FALL AND SAFETY PROTOCOLS IN PLACE. DENIES ANY PAIN. CONTINUES TO PROGESS TOWARDS D/C GOALS. WILL CONTINUE TO MONITER.
--- NOTE | 2018-10-01 15:03 | HC ---
[facility] [place] [address] CONSULTATION Name: KYE NEELY Room #: 512-P [facility] [place] ..#: [id number] Admission: 09/22/18 ������������������ Attend Phys: Franklin Odom MD Discharge: ������������������ Date of : 32 Report #: [id number] THIS REPORT FOR: //name// CC: Franklin Grijalva DATE OF SERVICE: 09/24/2018 ATTENDING PHYSICIAN: Franklin Odom MD SUPPLY CHAIN PROCUREMENT MANAGER: Fransico Evangelista, PhD CLINICAL PRESENTATION: The patient is an 88-year-old white male admitted to the hospital initially for treatment of nausea and vomiting. He was found to have a urinary tract infection along with dehydration. The patient was reported to have an aspiration risk and underwent placement of a PEG tube. He is reported to have had a code blue x 2 on 09/11/2018. The patient underwent an open abdominal exploratory lap with control of intra-abdominal hemorrhage, severe protein-calorie malnutrition and a Ovidio gastrostomy tube was placed with abdominal wall closure. He is reported to have been intubated with acute respiratory failure. An E. coli urinary tract infection was identified and the patient had a neurogenic bladder. He is now on tube feeding and is n.p.o. 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 The patient carries diagnosis of premorbid Parkinson's disease and was admitted for inpatient rehabilitation to improve functional mobility and activities of daily living and self-care. His assessment on the rehabilitation unit included critical illness myopathy, acute hemorrhage, status post exploratory laparotomy on 09/09/2018, acute respiratory failure with intubation from 09/09/2018 through 09/13/2018, status post PEG tube placement and now on tube feeding, history of E. coli urinary tract infection and neurogenic bladder, significant protein-calorie malnutrition with dysphagia, Parkinson disease, nausea and vomiting with esophageal dysmotility disorder, history of aspiration pneumonia, orthostatic hypotension, history of idiopathic cardiomyopathy with decreased ejection fraction, coronary artery disease and nonsustained ventricular tachycardia. A complete description of his medical condition, history and medications can be found in his medical record. Neuropsychological consultation was requested to provide assistance in the assessment of cognitive and emotional status and provide recommendations and services. Prior to this most recent hospitalization, the patient was living independently with his in [facility]. 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 He has three children. His family is described as very supportive. [address] [address] CONSULTATION Name: CHINKYE L Room #: 512-P [facility] [place] .R.#: [id number] Admission: 09/22/18 ������������������ Attend Phys: Franklin Odom MD Discharge: ������������������ Date of : 32 Report #: [id number] TECHNIQUES UTILIZED: Clinical interview, review of medical records, staff consultation and behavioral observation, mini mental status exam 2 standard version, subtest of calibrated ideational fluency assessment, family interview -- and son and then clock. EXAMINATION FINDINGS: The patient was alert and cooperative with the assessment. He was vague in regard to aspects of his initial hospitalization, likely from lack of memory due to delirium. He does not report auditory or visual hallucinations or suicidal ideation. The patient does not have an expressive or receptive aphasia. Symptoms include anxiety. He does not report difficulty with sleep, depression, anxiety or difficulty with memory. Occasional variability in word finding is described. His family do not report noticing any problems with his cognitive functioning. Performance on the MMSE 2 brief version is within normal limits with a raw score of 14 of 16. The patient was 3/3 for initial registration, 5/5 for orientation to time and place. He was 1/3 for immediate recall of 3 items after a brief time delay and distraction. Performance on the MMSE 2 standard version is within normal limits with a raw score of 26 of 30. He was 4/5 for serial sevens, 2/2 for naming, 1/1 for repetition, 3/3/ for auditory comprehension, 1/1 for being able to read and follow single command. The patient has a severe upper extremity tremor. Clock drawing likely impaired from hand tremor. He was asked to dictate rather than write a sentence, which was within normal limits. Brief letter fluency assessment was in the low average range with a T score of 39, percentile rank of 14. Brief category fluency was a T score of 49 and percentile rank of 46. The patient is presenting with difficulty in verbal fluency and immediate recall. The patient was initially tested while on the rehab unit in 07/2018 and current performance is generally consistent with his previous evaluation. 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 Unspecified anxiety disorder. RECOMMENDATIONS: The patient will likely require increased structure and supervision upon discharge for safety. Increased assistance in aspects of instrumental activities of daily living will be necessary. Verbal praise and complements about participation in therapies along with reassurance in regard to fairly well maintained cognitive function. Compensatory strategies for areas of concentration, memory and problem solving will assist his overall adjustment. . [facility] [address] [place] [address] CONSULTATION Name: KYE NEELY Room #: 512-P AD[facility] IN .R.#: [id number] Admission: 09/22/18 ������������������ Attend Phys: Franklin Odom MD Discharge: ������������������ Date of : 32 Report #: [id number] Thank you very much for allowing me to provide the consultation on this patient. ��������������������������������������������� <ELECTRONICALLY SIGNED> ���������������������������������������� By: Fransico Evangelista, PhD ��������������������������������������������� 10/01/18 1503 1801 0721 Fransico Evangelista, PhD /nt
[2018-10-01 20:00] VITALS: BP 125/70
--- NOTE | 2018-10-02 04:40 | NUR ---
PATIENT IS ALERT AND ORIENTED. PATIENT IS UP TIMES ONE WITH GAITBELT AND WALKER. ANTIFUNGEL APPLIED TO COCCYX. PATIENT LBM WAS THE 3RD. PATIENT IS PEG TUBE FEED. PATIENT HAS A POSADAS PATIENT HAD DIFFICULTY SLEEPING. PATIENT HAS 3(+) EDEMA LEGS ELEVATED. PATINETS DRESSING ARE CLEAN DRY AND INTACT. PATIENT DENIES PAIN. PATIENT SLEPT HALF THE NIGHT IN THE CHAIR. PATIENT IS PROGRESSING TO GOALS. PATIENT IS TURNED Q 2H EXCEPT WHEN SLEEPING PER PATIENT REQUEST. WCM.
[2018-10-02 07:45] VITALS: BP 101/66
--- NOTE | 2018-10-02 13:51 | NUR ---
ASSUMED CARE OF PT AT 0715. PT IS A&OX4. IS ON ROOM AIR. DENIES PAIN. IS REQUESTING SOMETHING FOR COUGHING & INCREASED MUCUS PRODUCTION. WILL COMMUNICATE WITH SUCTIONING & MOUTH CARE PROVIDED. PT IS STABLE. IS UP WITH 1 ASSIST, GB, WALKER. FALL PRECAUTIONS & HOURLY ROUNDING MAINTAINED. PT HAS BILAT LE EDEMA. LIMBS ELEVATED. PT HAS ACCU CHECKS Q6H & HAS BOLUS FEEDINGS VIA PEG TUBE AT 0600, 1200, 1800, & 2400 & 150 ML WATER BOLUS. PT IS STRICT NPO, MEDS CRUSHED THROUGH PEG TUBE. PT HAS AN INCISION MIDLINE THAT IS COVERED WITH ABD & TAPE. PT IS A Q2H TURN, SOMETIMES PT REFUSES. EDUCATION PROVIDED. PT IS CURRENTLY IN BED RESTING. CALL LIGHT WITHIN REACH. WILL CONTINUE TO MONITOR. LABS & VITALS REVEIWED.
[2018-10-02 19:45] VITALS: BP 112/62
--- NOTE | 2018-10-03 01:13 | NUR ---
PT ASSESSMENT COMPLETED AND VSS. MEDS GIVEN ORDERED AND WELL TOLERATED. FALL PRECAUTIONS IN PLACE. POSADAS DRAINING MODERATE AMOUNT OF DARK YELLOW URINE. ASST WITH FREQUENT REPOSITION FOR COMFORT. FUNGAL BARRIER CREAM APPLIED TO PRESSURE AREA ON COCCYX. PEG TUBE FEEDINGS/FLUSHES AND RESIDUALS COMPLETED ORDERED. 0 RESIDUAL NOTED. ACCU CHECK WNL. SLEEPING WELL. WILL CONTINUE TO MONITOR FREQUENTLY.
--- NOTE | 2018-10-03 12:31 | NUR ---
ASSUMED CARE OF PT AT 0715. PT IS A&OX4. IS ON ROOM AIR. IS STABLE. HAS PRODCUTIVE COUGH. HAS SUCTION & MUCINEX. DENIES PAIN. IS UP WITH 1 ASSIST, GB, WALKER. FALL PRECAUTIONS & HOURLY ROUNDING MAINTAINED. PT HAS BILAT LE EDEMA. LEGS ELEVATED. PT IS CURRENTLY UP IN CHAIR. IS TURNED Q2H. PT HAS PEG TUBE WITH BOLUS FEEDINGS WITH 2 ARNEL & 150ML WATER BOLUSES. PT HAS ORTHOSTATIC BPS. REPORTED NAUSEA THIS AM. ZOFRAN WAS ADMINISTERED. PT REPORTED FEELING BETTER. PT HAS NOT HAD A BOWEL MOVEMENT IN A FEW DAYS. SENNA WAS ADMINISTERED. OFFERED SUPPOSITORY. PT IS WILLING TO TAKE TONIGHT. PT HAS TREMORS. LABS & VITALS REVIEWED. CUAUHTEMOC IN PLACE. PT IS CURRENTLY IN ROOM WORKING WITH THERAPY. CALL LIGHT WITHIN IN REACH. WILL CONTINUE TO MONITOR.
[2018-10-03 19:24] VITALS: BP 109/70
--- NOTE | 2018-10-04 02:56 | NUR ---
PATIENT ASSESSED AND IS ALERT X 4. SKIN WARM AND DRY. RESP EVEN AND UNLABORED. UP WITH 1 PERSON ASSIST, BUT HAS BEEN IN BED FRO THIS SHIFT. TURNED Q 2 HOURS WHEN HE LETS US. HAD A LARGE LIQ BM FROM LAXATIVE X 2. IS HIH, POSADAS PATENT AND IS RUTHANN IN COLOR. HAS A OPEN SORE ON RIGHT BUTTOCK CHEEK CREAM APPLIED. SCUTUM RED AND USED ANTIFUNGAL CREAM ON THE AREA. PEG TUBE INTACT THAT FLUSHES WELL WITH FEEDING, MEDS AND WATER. WORKING WELLK. ALSO HAS A DRESSING ON RIGHT SIDE OF PEG TUBE FROM SURGICAL SITE, NO DRAINAGE NOTED. PATRICIA NEED TO BE REMOVED THIS WEEK. LUNGS COURSE AND HE SUCTIONS SELF THROUGHOUT THE NIGHT. HAS FINE TREMORS FROM PARKINSON DISEASE. REMAINS STRICT NPO. REMAINS A FALL RISK. HIS COUGH IS LOOSE .ON ROOM AIR. CONT WITH 2CAL FEEDING AND WATER BOLUES ANN-MARIE WELL. CONT PLAN OF CARE.REQUESTED AN ATIVAN AT HS. SLEPT WELL. ORDERED. ANN-MARIE WELL. NO RESIDUAL.
[2018-10-04 07:30] VITALS: BP 107/62
--- NOTE | 2018-10-04 10:55 | NUR ---
ASSUMED CARE AT 0700. PATIENT IS ALERT AND ORIENTED X4. PATIENT IS NPO . PATIENT CABRERA'S. AIR CONDITIONING MECHANIC INDUSTRIAL ARE EQUAL. SOME TREMORS IN HANDS NOTED. LUNGS ARE COARSE WITH EXP WHEEZES. PATIENT CONTINUES ON RESPIRATROY TXS. UP WITH ASSIST OF 1 STAFF AND GAIT BELT AND WALKER. FALL AND SAFETY PROTCOLS IN PLACE. DENIES ANY PAIN AT THIS TIME. CONTINUES TO PROGRESS TOWARDS D/C GOALS. WILL CONTINUE TO MONITER.
[2018-10-04 12:03] LABS: ALBUMIN 3.1 g/dL (3.4-5.0); CALCIUM 9.1 mg/dL (8.5-10.1); CREATININE 1.5 mg/dL (0.7-1.3); MAGNESIUM 1.9 mg/dL (1.8-2.4); PHOSPHORUS 3.5 mg/dL (2.5-4.9); POTASSIUM 4.7 mmol/L (3.5-5.1); TOTAL BILIRUBIN 0.7 mg/dL (<0.1-1.0); TOTAL PROTEIN 7.9 g/dL (6.4-8.2)
[2018-10-04 12:04] LABS: HEMATOCRIT 26.2 % (42.0-52.0); HEMOGLOBIN 8.7 gm/dL (14.0-18.0); MCH 28.1 pg (26.0-34.0); MCHC 33.3 g/dL (28.0-37.0); MCV 84.6 fL (80.0-100.0); RBC 3.09 mil/uL (4.50-6.00); RDW 17.1 % (10.5-14.5); WBC 6.2 thou/uL (4.0-11.0)
--- NOTE | 2018-10-04 13:38 | NUR ---
team meeting, recommendation: dc 10/07/18, ja tf bolus, pd to assist with tf in home, possible abernathy out and back to straight cath at home. bedside nursing to teach family tf support at home. hh(pt, ot, nursing and sw).
--- NOTE | 2018-10-04 17:02 | NUR ---
FAXED REFERRAL TO [facility] SPOKE WITH PALMER IN ADM SHE RECEIVED REFERRAL AND CAN ACCEPT AT DC FOR PVT DUTY AND HH.
[2018-10-04 20:30] VITALS: BP 131/45
--- NOTE | 2018-10-05 00:49 | NUR ---
PT ALERT AND ORIENTED X 4. PEG TUBE PATENT. ANN-MARIE FEEDINGS AND MEDS WELL PER PEG. ABD DRESSINGS C/D/I. POSADAS PATENT DRAINING YELLOW URINE. PT REFUSED TO GET UP FOR ORTHOSTATIC BP CHECK. PT DENIES PAIN OR DISCOMFORT. ATIVAN GIVEN AT HS PER PT REQUEST FOR SLEEP. BED ALARM ON FOR SAFETY. PT APPEARS TO BE SLEEPING ON HOURLY ROUNDS.
[2018-10-05 04:15] LABS: CALCIUM 8.6 mg/dL (8.5-10.1); CREATININE 1.4 mg/dL (0.7-1.3); POTASSIUM 4.5 mmol/L (3.5-5.1)
[2018-10-05 04:36] LABS: HEMATOCRIT 25.3 % (42.0-52.0); HEMOGLOBIN 8.3 gm/dL (14.0-18.0); MCH 27.8 pg (26.0-34.0); MCHC 32.8 g/dL (28.0-37.0); MCV 84.8 fL (80.0-100.0); RBC 2.98 mil/uL (4.50-6.00); RDW 16.4 % (10.5-14.5); WBC 4.6 thou/uL (4.0-11.0)
--- NOTE | 2018-10-05 05:44 | NUR ---
PT C/O FEELING FULL AT END OF TUBE FEEDING. FLUSHED WITH ONLY 100 ML WATER. BLOOD SUGAR 87 PER LAB AT 0340. 0500 ACCUCHECK NOT DONE SINCE LAB RESULT WAS OBTAINED. PT DENIES PAIN OR NAUSEA. PT STATES HE SLEPT WELL TONIGHT.
[2018-10-05 08:00] VITALS: BP 109/71
[2018-10-05 08:01] VITALS: BP 110/70
[2018-10-05 08:02] VITALS: BP 90/50
--- NOTE | 2018-10-05 08:12 | NUR ---
WOUND FOLLOW UP: PT. WAS SEEN BY DR. BREEN AND MYSELF ON 10/04/18. PT. SACRUM IS ALMOST HEALED AT THIS TIME. PT. IS IN GOOD SPIRITS. RECOMMENDATIONS: CONTINUE WITH CURRENT PLAN OF CARE. PT. AND STAFF NURSE WERE INSTRUCTED ON PLAN OF CARE.
--- NOTE | 2018-10-05 10:29 | NUR ---
Nutrition: REC order 2 packets beneprotein powder to be given in water flushes between feedings daily to better meet protein needs.
--- NOTE | 2018-10-05 11:12 | NUR ---
ASSUMED CARE AT 0700. PATIENT IS ALERT AND ORIENTED X4. PATINET HAS RIGHT HAND TREMORS. PATIENT HAS ABD DRESSING TO [facility] RIGHT ABD. PATIENT HAS PEG TUBE FOR FEEDINGS AND MEDS. PATIENT HAS 2+ EDEMA IN HIS LOWER EXTREMITIES. PATIENT HAS PATRICIA IN HIS RIGHT ABD. POSADAS TO DD, DRAINING RUTHANN COLORED URINE. FALL AND SAFETY PROTOCOLS IN PLACE. DENIES ANY PAIN. CONTINUES TO PROGESS TOWARDS D/C GOALS. WILL CONTINUE TO MONITER.
--- NOTE | 2018-10-05 11:13 | NUR ---
FAXED REFERRAL TO [facility] SPOKE WITH BRANDO IN ADM HE RECEIVED REFERRAL AND IS SPEAKING WITH PT'S SON REGARDING COST OF PVT DUTY AND CAN ACCEPT FOR DCP TO FOLLOW.
--- NOTE | 2018-10-05 13:06 | NUR ---
cm visited with pt son rt marla is able to accept and cm left message with mika with [employer] question rt tf. " good thank you i will cont with both of them and make sure have the company who can come out on wednesday when he gets home"/don. will cont following as needed for dc needs.
[2018-10-05 19:49] VITALS: BP 103/70; BP 112/76
--- NOTE | 2018-10-06 01:35 | NUR ---
PT ALERT AND ORIENTED X 4. PEG TUBE PATENT. ANN-MARIE HS FEEDING WELL. POSADAS PATENT DRAINING DARK YELLOW URINE. ABD DRESSINGS C/D/I. PT DENIES PAIN OR DISCOMFORT. PT REFUSED TO BE AWAKENED FOR MIDNIGHT GUIAFENISIN AND FOR Q2H TURNS. BED ALARM ON FOR SAFETY. PT APPEARS TO BE SLEEPING ON HOURLY ROUNDS.
[2018-10-06 08:15] VITALS: BP 103/59
[2018-10-06 09:05] LABS: HEMOGLOBIN 8.4 gm/dL (14.0-18.0); MCH 27.6 pg (26.0-34.0); MCHC 32.4 g/dL (28.0-37.0); MCV 85.2 fL (80.0-100.0); RBC 3.06 mil/uL (4.50-6.00); RDW 16.4 % (10.5-14.5)
--- NOTE | 2018-10-06 10:11 | NUR ---
cm return phone call to son emi requested update on dcp " i guess you know that [employer] is unable to met dads needs for tf. also i spoke with dad and he has changed his mind about the baernathy. he would like to try and straight cath instead of going home with abernathy. dad cont to cough, been told no infectious and he would go home with breathing tx at home, so pd with [facility] can help with that as well. nichole or me will help with night time tf."/son emi. jasmine passed on information to bedside nurse. will needs rx for btx if ordered for dc.
--- NOTE | 2018-10-06 14:23 | NUR ---
FAXED REFERRAL TO [facility] FOR A NEBULIZER SPOKE WITH NIK AT [facility] SHE RECEIVED REFERRAL AND WILL SEEK AUTH FOR NEB. PT. TO DC TOMORROW.
--- NOTE | 2018-10-06 14:49 | H ---
[facility] [place] [address] HISTORY AND PHYSICAL Name: KYE NEELY Room #: 512-P [facility] IN .R.#: [id number] Admission: 09/22/18 ������������������ Attend Phys: Franklin Odom MD Discharge: ������������������ Date of : 32 Report #: [id number] THIS REPORT FOR: //name// CC: Franklin Grijalva DATE OF SERVICE: 09/22/2018 HISTORY OF PRESENT ILLNESS: The patient is an 88-year-old white male who was admitted to the hospital from home with nausea and vomiting. He was found to have dehydration and urinary tract infection. Due to his poor oral intake and aspiration risk, the patient underwent placement of a PEG tube. GI was unable to place the PEG tube and so he was taken to IR where there were complications as far as the placement of the PEG tube. The patient had code blue x 2. Surgery was involved and on 09/11/2018, the patient underwent open abdomen recent exploratory lap with control of intra-abdominal hemorrhage, severe protein-calorie malnutrition with a Ovidio gastrostomy tube placed with abdominal wall closure. This all occurred on 09/11/2018. The patient ended up being intubated with acute respiratory failure from on 09/09/2018 through 09/13/2018. He had an Escherichia coli urinary tract infection and has neurogenic bladder. He is now on tube feeding and is n.p.o. He has an idiopathic cardiomyopathy with ejection fraction about 40%. He is noted to have nonsustained ventricular tachycardia. 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 He also has premorbid Parkinson's disease. He has been admitted now for acute in-hospital inpatient rehabilitation. PAST MEDICAL HISTORY: Includes hypertension, atrial fibrillation, Parkinson's disease, cellulitis, dysphagia, benign prostatic hypertrophy, urinary retention, and cardiomyopathy. PAST SURGICAL HISTORY: Includes TURP. MEDICATIONS: Please see the full medication listing. This includes vitamins, herbals, and supplements per report. ALLERGIES: AMMONIUM. SOCIAL HISTORY: Lives at home with his . He used a front-wheeled walker to ambulate, had been independent with ADLs and shared IADLs. He has had a recent new diagnosis of Parkinson's disease and was started on Sinemet titration. REVIEW OF SYSTEMS: No current complaints of chest pain, shortness of breath or abdominal discomfort. He had a history of urinary retention and self-catheterized prior. No fever or chills. No other bowel or bladder changes. Notes he is on the tube feedings. He indicated he was not on nasal [address] [address] HISTORY AND PHYSICAL Name: CHINKYE Michael Room #: 512-P [facility] IN ..#: [id number] Admission: 09/22/18 ������������������ Attend Phys: Franklin Odom MD Discharge: ������������������ Date of : 32 Report #: [id number] cannula oxygen prior. Generalized weakness. No focal extremity pain complaints per se. PHYSICAL EXAMINATION: GENERAL: The patient is an 88-year-old white male in no obvious distress. VITAL SIGNS: Last recorded temperature 97.8, pulse 78, respirations 18, and blood pressure 115/78. The patient is alert, follows basic 1 step commands. He is on 2 liters nasal cannula. HEENT: Facies are symmetric. CHEST: Some decreased diffuse breath sounds. CARDIOVASCULAR: Regular rate and rhythm. ABDOMEN: Bowel sounds positive, nontender. GENITOURINARY AND RECTAL: Deferred. EXTREMITIES: Functional range of motion of both upper extremities, strength is grade 3+ to 4-/5. He does have a pill rolling tremor and has some cogwheeling wrists and elbows. Some rigidity is noted. He does have some evidence of masked facies as well. Lower extremities; functional range of motion strength is grade 3+ to 4-/5. No focal calf swelling. He does have the PEG tube in place and is on PEG tube feedings. He has been needing max assist with basic sit to stand and has ambulated up to 10 feet with a front-wheeled walker with mod assist. ASSESSMENT: An 88-year-old white male with the following problem list: 1. Critical illness myopathy. 2. Acute hemorrhage status post exploratory laparotomy 09/09/2018. 3. Acute respiratory failure, was intubated from 09/09/2018 through 09/13/2018. 4. Status post PEG tube placement, now on tube feeding and n.p.o. 5. History of Escherichia coli urinary tract infection with neurogenic bladder. 6. Significant protein calorie malnutrition with dysphagia. 7. Parkinson's disease. 8. 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 9. History of aspiration pneumonia. 10. Orthostatic hypotension. 11. History of idiopathic cardiomyopathy with decreased ejection fraction. 12. Coronary artery disease. 13. Nonsustained ventricular tachycardia. PLAN: The patient is admitted for acute in-hospital inpatient rehabilitation stay. From a postadmission physician evaluation perspective, there are no relevant changes since the preadmission screening. Please see the above review of prior and current medical and functional conditions and comorbidities. Please see the patient's previous and current functional status. As far as risk of complications, the patient has multiple medical comorbidities as noted above. Initial plan of care involves the interdisciplinary acute inpatient rehabilitation program with goal of maximizing the patient's functional independence so that he can hopefully return back to his prior living situation. [facility] [place] [address] HISTORY AND PHYSICAL Name: KYE NEELY Room #: 512-P [facility] IN .R.#: [id number] Admission: 09/22/18 ������������������ Attend Phys: Franklin Odom MD Discharge: ������������������ Date of : 32 Report #: [id number] Measurable functional goals would be for her to become modified independent hopefully with mobility and ADLs at the walker level and to be independent with tube feeding and self-cathing again. He currently has the Mena indwelling at this time. His prognosis is reasonably good with estimated length of stay probably 10 days to 2 weeks. Potential barriers would include his multiple medical comorbidities and decreased functional status. The patient meets diagnostic criteria for an acute in-hospital inpatient rehabilitation stay. He meets the medical necessity criteria and we will have the multiple packaging sales consultant physicians continue to follow. He does have the tolerance for therapies and has appropriate discharge goals back to the home setting. ��������������������������������������������� <ELECTRONICALLY SIGNED> ���������������������������������������� By: Franklin Odom MD ��������������������������������������������� 10/06/18 1449 0844 [id number] Franklin Odom MD /nt
--- NOTE | 2018-10-06 14:49 | PLAN ---
[facility] [place] [address] REHAB UNIT PLAN OF CARE Name: KYE NEELY Room #: 512-P [facility] .R.#: [id number] Admission: 09/22/18 ������������������ Attend Phys: Franklin Odom MD Discharge: ������������������ Date of : 34 Report #: [id number] THIS REPORT FOR: //name// CC: Franklin Grijalva DATE OF SERVICE: 09/24/2018 PROGRESS NOTE AND OVERALL PLAN OF CARE SUBJECTIVE: The patient is seen back today earlier. He was sleepy, cooperative. Last recorded temperature is 36.7, pulse is 87, respirations 14, and blood pressure is 104/64. He has been working in therapies with sit to stand, max assist. Gait has been up to 5 feet mod assist with a front-wheeled walker. He has been min assist with transfers. Upper body dressing has been min assist. He has [id number] cognitive deficits with moderate memory deficits. He has been on PEG tube feedings and has been n.p.o. ASSESSMENT: 1. Critical illness myopathy. 2. Acute hemorrhage, status post exploratory laparotomy on 09/09/2018. 3. Acute respiratory failure, was intubated from 09/09/2018 to 09/13/2018. 4. Status post PEG tube placement. 5. History of Escherichia coli urinary tract infection with neurogenic bladder. 6. Protein-calorie malnutrition. 7. History of Parkinson's disease. 8. 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 9. History of aspiration pneumonia. 10. Orthostatic hypotension. 11. History of idiopathic cardiomyopathy with decreased ejection fraction. 12. Coronary artery disease. 13. Nonsustained ventricular tachycardia. PLAN: The overall plan of care is based on the preadmission screen, post-admission physician evaluation and information garnered from therapy assessments. 1. Estimated length of stay is probably 10 days to 2 weeks and potentially longer if needed. 2. Medical prognosis is reasonably good. 3. Anticipated interventions includes the interdisciplinary acute inpatient rehabilitation program with PT, OT, and speech, rehabilitation nursing involved with medication management, skin care prophylaxis, bowel and bladder issues, and nursing education. The rest of the interdisciplinary acute rehabilitation team is involved as well as the multiple retail wireless sales consultant physicians. 4. Anticipated functional outcomes would be for the patient to become modified independent with basic mobility utilizing a front-wheeled walker so that he [address] [address] REHAB UNIT PLAN OF CARE Name: CHINKYE L Room #: 512-P [facility] ..#: [id number] Admission: 09/22/18 ������������������ Attend Phys: Franklin Odom MD Discharge: ������������������ Date of : 34 Report #: [id number] could return back to the home setting. Also to improve as far as overall cognition. Would anticipate he will need training or his family will need training regarding the PEG tube feedings. 5. Discharge destination would be back home with his as noted above. 6. Expected therapy by discipline includes PT, OT and speech 1 hour per day each five days a week throughout the duration of the acute inpatient rehabilitation stay. We may be able to decrease some of the speech therapy of more PT and OT, but we will need to see how he does. ��������������������������������������������� <ELECTRONICALLY SIGNED> ���������������������������������������� By: Franklin Odom MD ��������������������������������������������� 10/06/18 [id number] Franklin Odom MD /PMT
--- NOTE | 2018-10-06 15:09 | NUR ---
PATIENT ALERT AND ORIENTED AND PLEASANT. PATIENT CONTINUES TO HAVE COUGH AND USES YONKER SUCTION TO SUCTION. DISCONTINUE POSADAS TODAY AND THEN STRAIGHT CATH.
--- NOTE | 2018-10-06 20:19 | NUR ---
ASSUMED CARE @ 19:15. PT IN ROOM, NPO. PEG TUBE BOLUS OF TWO ARNEL HN. HAS YONKERS SUCTION THAT HE OPERATES HIMSELF. A&OX4. WILL CONTINUE TO MONITOR.
[2018-10-06 21:09] VITALS: BP 102/61
--- NOTE | 2018-10-07 01:32 | NUR ---
2100 BOLUS AND MEDS PROVIDED. REQUESTED NOT TO BE AWAKENED FOR 0000 MEDICATION, AND WAS ASLEEP AT THIS TIME. GUIFENASEN HELD PER PT REQUEST. WILL CONTINUE TO MONITOR.
[2018-10-07 08:00] VITALS: BP 103/71
--- NOTE | 2018-10-07 09:16 | NUR ---
I have reviewed the documentation by ASHIA MARTINEZ from 10/06/18 to 10/06/18 and I concur with it. ANNA WELLS
[2018-10-07 10:08] VITALS: BP 103/71
[2018-10-07] MEDS ORDERED: IPRAT-ALBUT 0.5-3 ML INH (13:33)
[2018-10-07] MEDS ORDERED: MIDODRINE HCL 55 M1 PO (13:34)
[2018-10-07] MEDS ORDERED: PACERONE 200 M200 M1 PER TUBE (13:37)
[2018-10-07] MEDS ORDERED: LOPRESSOR25 PER TUBE (13:38)
[2018-10-07] MEDS ORDERED: LORAZEPAM 0.50.5 MG PO (13:39)
[2018-10-07] MEDS ORDERED: CARBIDOPA-LEVO1 EA11 PO (13:41)
[2018-10-07] MEDS ORDERED: ROBITUSSIN100 MG/53 PO (13:42)
[2018-10-07] MEDS ORDERED: BISACODYL SUPP10 MG RECTAL (13:44)
[2018-10-07] MEDS ORDERED: PROBIOTIC1 EAC1 PO (13:44)
[2018-10-07] MEDS ORDERED: MILK OF MA2400 MG/11 PER TUBE (13:46)
[2018-10-07] MEDS ORDERED: OMEPRAZOLE 20 M20 M1 PER TUBE (13:47)
[2018-10-07] MEDS ORDERED: NYAMYC15 GM TOP (13:48)
--- NOTE | 2018-10-07 14:21 | NUR ---
WOUND FOLLOW UP: PT. WAS SEEN TODAY BY DR. BREEN AND MYSELF. PT. IS IN GOOD SPIRITS AND HIS SACRUM IS CLINICALLY IMPROVED. RECOMMENDATIONS: CONTINUE WITH CURRENT PLAN OF CARE. PT. AND STAFF NURSE WERE INSTRUCTED ON PLAN OF CARE.
--- NOTE | 2018-10-07 16:02 | NUR ---
PATIENT ALERT AND ORIENTED WITH SPOUSE AND SON AT BEDSIDE. PROVIDED DISCHARGE TEACHING REGARDING ALL ASPECTS OF PEG TUBE, INCLUDING TUBE CARE, FEEDINGS, AND MEDS THROUGH THE PEG TUBE AND LITERATURE REGARDING PEG TUBE. PATIENT DISCHARGE WITH HOME WITH SPOUSE AND FAMILY SUPPORT AND PRIVATE NURSING CARE / HOME HEALTH. PATIENT IN STABLE CONDITION UPON DISCHARGE IN WHEELCHAIR AND TRANSPORT HOME IN PRIVATE VEHICLE WITH DISCHARGE PRESCRIPTIONS, INSTRUCTIONS AND ALL PERSONAL BELONGINGS.
--- NOTE | 2018-10-07 16:58 | NUR ---
PT. DISCHARGING TODAY TO HOME WITH JAYNA RANGEL FAXED DC ORDERS/SUMMARY SPOKE WITH PALMER SHE RECEIVED DC ORDERS AND WILL NOTIFY PT TIME OF VISITS. FAXED SCRIPT FOR TO [facility] FOR NEBUL[facility]ER SPOKE WITH JENY SHE RECEIVED SCRIPT AND WILL DELIVER NEB. PRIOR TO DC.
== END 2018-10-07 15:38 | disposition home health service (06) | DRG 91 ==
LOC: ENTRNSPT 10-07 15:15 → EDTRNSPTSTS 10-07 15:18
PROVIDERS: Internal Medicine; Nurse Practitioner Adult Health; Nurse Practitioner Family; ADMIT Physical Medicine & Rehabilitation
DX: G72.81 Critical illness myopathy (principal); J96.00 Acute respiratory failure, unspecified whether with hypoxia or hypercapnia; E43 Unspecified severe protein-calorie malnutrition; J69.0 Pneumonitis due to inhalation of food and vomit; I47.2 Ventricular tachycardia; I42.8 Other cardiomyopathies; N17.9 Acute kidney failure, unspecified; J44.1 Chronic obstructive pulmonary disease with (acute) exacerbation; D62 Acute posthemorrhagic anemia; N39.0 Urinary tract infection, site not specified; R58 Hemorrhage, not elsewhere classified; G20 Parkinson's disease; I95.1 Orthostatic hypotension; I25.10 Atherosclerotic heart disease of native coronary artery without angina pectoris; G31.84 Mild cognitive impairment of uncertain or unknown etiology; F41.9 Anxiety disorder, unspecified; K22.4 Dyskinesia of esophagus; N40.1 Benign prostatic hyperplasia with lower urinary tract symptoms; R33.8 Other retention of urine; R13.10 Dysphagia, unspecified; I48.91 Unspecified atrial fibrillation; I12.9 Hypertensive chronic kidney disease with stage 1 through stage 4 chronic kidney disease, or unspecified chronic kidney disease; N18.9 Chronic kidney disease, unspecified; R53.81 Other malaise; D64.9 Anemia, unspecified; B96.20 Unspecified Escherichia coli [E. coli] as the cause of diseases classified elsewhere; N31.9 Neuromuscular dysfunction of bladder, unspecified; Z66 Do not resuscitate; Z88.8 Allergy status to other drugs, medicaments and biological substances; Z93.1 Gastrostomy status; Z87.440 Personal history of urinary (tract) infections; Z87.01 Personal history of pneumonia (recurrent); Z86.74 Personal history of sudden cardiac arrest; Z68.26 Body mass index [BMI] 26.0-26.9, adult
CPT/HCPCS: 10112